=== PATIENT | female | born 1945 | race Caucasian/White ===

== ENCOUNTER 2017-06-20 07:51 | Day surgery (SDC) | payer BC, OTHER ==
[2017-06-20] MEDS ORDERED: NS 1000 ML 1,000 ML ONE (07:58)
[2017-06-20] MEDS ORDERED: DIPRIVAN VIAL 20 ML ONE (09:51)
[2017-06-20] MEDS ORDERED: DIPRIVAN VIAL 10 ML ONE (10:04)
[2017-06-20 10:55] VITALS: BP 120/60
== END 2017-06-20 10:32 | disposition home or self-care (01) ==
LOC: SURG1 07:51
PROVIDERS: ATTEND Internal Medicine Gastroenterology
PROC: 0DB88ZX Excision of Small Intestine, Via Natural or Artificial Opening Endoscopic, Diagnostic (ICD-10-PCS; principal; 2017-06-20 10:15)
PROC: 0DJ08ZZ Inspection of Upper Intestinal Tract, Via Natural or Artificial Opening Endoscopic (ICD-10-PCS; principal; 2017-06-20 10:15)
PROC: 0DB68ZX Excision of Stomach, Via Natural or Artificial Opening Endoscopic, Diagnostic (ICD-10-PCS; principal; 2017-06-20 10:15)
DX: D50.8 Other iron deficiency anemias (principal); R10.13 Epigastric pain; K31.7 Polyp of stomach and duodenum; K25.9 Gastric ulcer, unspecified as acute or chronic, without hemorrhage or perforation; K20.8 Other esophagitis
CPT/HCPCS: 99100; A4217; J3490

== ENCOUNTER 2017-07-04 07:19 | Day surgery (SDC) | payer BC, OTHER ==
[2017-07-04] MEDS ORDERED: D5 LR 1000 ML 1,000 ML IV ONE (07:24)
[2017-07-04] MEDS ORDERED: DIPRIVAN VIAL 20 ML ONE (08:33)
[2017-07-04] MEDS ORDERED: XYLOCAINE 2 % (PLAIN) ONE (08:34)
[2017-07-04] MEDS ORDERED: DIPRIVAN VIAL 10 ML ONE (08:46)
[2017-07-04 10:24] VITALS: BP 119/58
== END 2017-07-04 09:10 | disposition home or self-care (01) ==
LOC: SURG1 07:19
PROVIDERS: ATTEND Internal Medicine Gastroenterology
PROC: 0DJD8ZZ Inspection of Lower Intestinal Tract, Via Natural or Artificial Opening Endoscopic (ICD-10-PCS; principal; 2017-07-04 07:30)
PROC: 0DBM8ZX Excision of Descending Colon, Via Natural or Artificial Opening Endoscopic, Diagnostic (ICD-10-PCS; principal; 2017-07-04 07:30)
PROC: 0DBP8ZX Excision of Rectum, Via Natural or Artificial Opening Endoscopic, Diagnostic (ICD-10-PCS; principal; 2017-07-04 07:30)
DX: D50.8 Other iron deficiency anemias (principal); K63.5 Polyp of colon; K64.0 First degree hemorrhoids; Z85.3 Personal history of malignant neoplasm of breast; Z86.010 Personal history of colon polyps
CPT/HCPCS: 99100; A4217; J2001; J3490; J7120

== ENCOUNTER → 2017-08-23 | Outpatient (CLI) | payer BC, OTHER ==
[2017-08-13 08:23] VITALS: BP 106/61
== END | disposition home or self-care (01) | DRG 918 ==
LOC: LAB 12:39
PROVIDERS: ATTEND Internal Medicine
DX: T45.511A Poisoning by anticoagulants, accidental (unintentional), initial encounter (principal); Y92.89 Other specified places as the place of occurrence of the external cause; Z79.01 Long term (current) use of anticoagulants
CPT/HCPCS: 36415; 85610

== ENCOUNTER 2019-01-12 11:44 | Inpatient (IN) ==
[2019-01-12 14:21] LABS: BASOPHILS % (AUTO) 0.3 % (0.2-1.0); EOSINOPHILS # (AUTO) 0.2 x10^3/uL (0.0-0.2); EOSINOPHILS % (AUTO) 4.6 % (0.9-2.9); HEMOGLOBIN 11.2 g/dL (12.0-16.0); LYMPHOCYTES # (AUTO) 0.9 X10^3/uL (1.3-2.9); LYMPHOCYTES % (AUTO) 20.9 % (21.0-51.0); MEAN CORPUSCULAR HEMOGLOBIN 28.3 pg (27.0-34.0); MEAN CORPUSCULAR VOLUME 85.7 fL (80.0-100.0); MEAN PLATELET VOLUME 7.7 fL (7.4-11.0); MONOCYTES # (AUTO) 0.4 x10^3/uL (0.3-0.8); MONOCYTES % (AUTO) 8.4 % (0.0-13.0); NEUTROPHILS # (AUTO) 2.9 x10^3/uL (2.2-4.8); NEUTROPHILS % (AUTO) 65.8 % (42.0-75.0); PLATELET COUNT 183 X10^3/uL (150.0-450.0); RED BLOOD COUNT 3.96 X10^6/uL (3.5-5.4); RED CELL DISTRIBUTION WIDTH 15.3 % (11.6-16.5); WHITE BLOOD COUNT 4.4 X10^3/uL (3.6-10.0)
[2019-01-12 14:31] LABS: ALANINE AMINOTRANSFERASE 26 Units/L (12-78); ALKALINE PHOSPHATASE 86 Units/L (46-116); ASPARTATE AMINO TRANSFERASE 18 Units/L (15-37); BLOOD UREA NITROGEN 22 mg/dL (7-18); CALCIUM 9.7 mg/dL (8.5-10.1); CHLORIDE 101 mmol/L (98-107); COR NA(FOR HYPERGLY) 141 mmol/L (136-145); CREATININE 1.72 mg/dL (0.55-1.02); SODIUM 140 mmol/L (136-145); TOTAL PROTEIN 7.9 g/dL (6.4-8.2); eGFR NON BLACK RACES 31 (>60)
[2019-01-12] MEDS: LASIX IVP SCH ×2 (14:55→21:02)
--- NOTE | 2019-01-12 15:26 | RAD ---
History: Exacerbation of CHF Study: Portable AP chest Comparison: August 11, 2017 Findings: There is unchanged mild to moderate cardiomegaly status post sternotomy and prosthetic valve. The lungs are grossly clear. There are surgical clips in the left axilla. Impression: Chronic cardiomegaly, no acute disease. Reported By:
[2019-01-12 15:33] VITALS: BMI 26.6
[2019-01-13 05:20] LABS: ALANINE AMINOTRANSFERASE 25 Units/L (12-78); ALBUMIN 3.7 g/dL (3.4-5.0); ALKALINE PHOSPHATASE 82 Units/L (46-116); ASPARTATE AMINO TRANSFERASE 18 Units/L (15-37); BLOOD UREA NITROGEN 23 mg/dL (7-18); CALCIUM 9.4 mg/dL (8.5-10.1); CARBON DIOXIDE 29.9 mmol/L (21-32); CHLORIDE 100 mmol/L (98-107); COR NA(FOR HYPERGLY) 141 mmol/L (136-145); CREATININE 1.82 mg/dL (0.55-1.02); SODIUM 140 mmol/L (136-145); TOTAL PROTEIN 7.4 g/dL (6.4-8.2); eGFR NON BLACK RACES 29 (>60)
[2019-01-13 05:22] LABS: BASOPHILS % (AUTO) 0.2 % (0.2-1.0); EOSINOPHILS # (AUTO) 0.2 x10^3/uL (0.0-0.2); EOSINOPHILS % (AUTO) 4.8 % (0.9-2.9); HEMOGLOBIN 11.7 g/dL (12.0-16.0); LYMPHOCYTES % (AUTO) 21.9 % (21.0-51.0); MEAN CORPUSCULAR HEMOGLOBIN 29.5 pg (27.0-34.0); MEAN CORPUSCULAR HGB CONC 34.5 g/dL (33.0-35.0); MEAN CORPUSCULAR VOLUME 85.6 fL (80.0-100.0); MEAN PLATELET VOLUME 8.2 fL (7.4-11.0); MONOCYTES # (AUTO) 0.5 x10^3/uL (0.3-0.8); MONOCYTES % (AUTO) 10.3 % (0.0-13.0); NEUTROPHILS # (AUTO) 2.9 x10^3/uL (2.2-4.8); NEUTROPHILS % (AUTO) 62.8 % (42.0-75.0); PLATELET COUNT 178 X10^3/uL (150.0-450.0); RED BLOOD COUNT 3.97 X10^6/uL (3.5-5.4); RED CELL DISTRIBUTION WIDTH 15.2 % (11.6-16.5); WHITE BLOOD COUNT 4.7 X10^3/uL (3.6-10.0)
--- NOTE | 2019-01-13 06:55 | RAD ---
HISTORY: CHF exacerbation Study: Chest AP portable Comparison: 01/12/2019 Findings: The patient is status post median sternotomy and valve replacement. The heart is mildly enlarged. No congestive heart failure is noted. No acute alveolar infiltrates or pleural effusions are identified. The bony thorax is unremarkable. IMPRESSION: Continued mild cardiomegaly without congestive heart failure No infiltrates Reported By:
[2019-01-13] MEDS ORDERED: ENTRESTO 24/26 MG TAB PO SCH (09:00)
[2019-01-13] MEDS ORDERED: COZAAR PO SCH ×2 (09:00→21:00)
[2019-01-13] MEDS: ASPIRIN EC 81 MG PO SCH (09:41)
[2019-01-13] MEDS: HEMOCYTE-PLUS PO SCH (09:41)
[2019-01-13] MEDS: RANEXA PO SCH ×2 (09:42→20:34)
[2019-01-13] MEDS: PriLOSEC PO SCH (09:42)
[2019-01-13] MEDS: SYNTHROID 100 mcg TAB PO SCH (09:42)
[2019-01-13] MEDS: LANOXIN PO SCH (11:44)
--- NOTE | 2019-01-13 16:37 | DR.UPDATE ---
H&P Update History and Physical Update: History and Physical reviewed and patient examined. Changes noted: Yes with the following: RETURNED TO THE OFFICE TODAY FOR A FOLLOW-UP VISIT DUE TO INCREASED SHORTNESS OF BREATH. HE HAS A HISTORY OF CONGESTIVE HEART FAILURE. HER DOSE OF LASIX WAS RECENTLY INCREASED TO 40MG PO DAILY. PATIENT REPORTS THAT SYMPTOMS HAVE NOT IMPROVED AND HAVE WORSENED SINCE HER LAST VISIT ON 01/07/19 SHE ALSO REPORTS FATIGUE AND WEAKNESS, BUT DENIES COUGH OR CHEST PAIN. WE ADMITTED PATIENT FOR FURTHER EVALUATION AND TREATMENT OF CHF EXACERBATION. ON ADMISSION, WE WILL OBTAIN LABS, CHEST XRAY, ECHO, AND WILL START HER ON LASIX 40MG IV BID X 2 DOSES, THEN REEVALUATE. NO OTHER CHANGES NOTED TO H&P. Prescription drug monitoring program results: PDMP reviewed and no concerns identified
[2019-01-13] MEDS ORDERED: SNACK - Diabetic Appropriate PO SCH (20:00)
[2019-01-13] MEDS: ENTRESTO 24/26 MG TAB PO SCH (20:29)
[2019-01-13] MEDS ORDERED: LIPITOR TAB 40 MG PO SCH (21:00)
[2019-01-13] MEDS ORDERED: LANTUS SC SCH (21:00)
[2019-01-14 05:31] LABS: BASOPHILS % (AUTO) 0.1 % (0.2-1.0); EOSINOPHILS # (AUTO) 0.2 x10^3/uL (0.0-0.2); EOSINOPHILS % (AUTO) 4.5 % (0.9-2.9); HEMATOCRIT 34.7 % (36.0-47.0); HEMOGLOBIN 11.6 g/dL (12.0-16.0); LYMPHOCYTES % (AUTO) 22.3 % (21.0-51.0); MEAN CORPUSCULAR HEMOGLOBIN 28.8 pg (27.0-34.0); MEAN CORPUSCULAR HGB CONC 33.5 g/dL (33.0-35.0); MEAN CORPUSCULAR VOLUME 85.8 fL (80.0-100.0); MEAN PLATELET VOLUME 8.4 fL (7.4-11.0); MONOCYTES # (AUTO) 0.5 x10^3/uL (0.3-0.8); MONOCYTES % (AUTO) 10.3 % (0.0-13.0); NEUTROPHILS # (AUTO) 2.9 x10^3/uL (2.2-4.8); NEUTROPHILS % (AUTO) 62.8 % (42.0-75.0); PLATELET COUNT 159 X10^3/uL (150.0-450.0); RED BLOOD COUNT 4.04 X10^6/uL (3.5-5.4); WHITE BLOOD COUNT 4.6 X10^3/uL (3.6-10.0)
[2019-01-14 05:43] LABS: ALANINE AMINOTRANSFERASE 25 Units/L (12-78); ALBUMIN 3.4 g/dL (3.4-5.0); ALKALINE PHOSPHATASE 77 Units/L (46-116); ASPARTATE AMINO TRANSFERASE 20 Units/L (15-37); BLOOD UREA NITROGEN 27 mg/dL (7-18); CALCIUM 9.4 mg/dL (8.5-10.1); CARBON DIOXIDE 29.2 mmol/L (21-32); CHLORIDE 101 mmol/L (98-107); COR NA(FOR HYPERGLY) 140 mmol/L (136-145); CREATININE 1.66 mg/dL (0.55-1.02); DIGOXIN < 0.30 ng/mL (0.9-2); SODIUM 139 mmol/L (136-145); TOTAL PROTEIN 7.2 g/dL (6.4-8.2); eGFR NON BLACK RACES 32 (>60)
[2019-01-14] MEDS: SYNTHROID 100 mcg TAB PO SCH (06:01)
[2019-01-14] MEDS: LANOXIN PO SCH (08:22)
[2019-01-14] MEDS: ENTRESTO 24/26 MG TAB PO SCH (08:22)
[2019-01-14] MEDS: ASPIRIN EC 81 MG PO SCH (08:22)
[2019-01-14] MEDS: HEMOCYTE-PLUS PO SCH (08:22)
[2019-01-14] MEDS: PriLOSEC PO SCH (08:23)
[2019-01-14] MEDS: RANEXA PO SCH (08:23)
--- NOTE | 2019-01-14 09:04 | PCM.PROG ---
Progress Note - Progress Note for Day of Date of Exam: 01/13/19 - Subjective Subjective: WAS ADMITTED FOR CHF EXACERBATION. TODAY, SHE IS ALERT AND ORIENTED, LYING IN BED ON MORNING ROUNDS. SHE CONTINUES WITH COMPLAINTS OF SHORTNESS OF BREATH, BUT REPORTS SLIGHT IMPROVEMENT SINCE ADMISSION. ON EXAMINATION, HEART IS REGULAR IN RATE AND RHYTHM. BILATERAL LUNGS ARE NOTED WITH DIMINISHED LUNG SOUNDS THROUGHOUT. ABDOMEN IS ROUND, SOFT, AND NON-TENDER. BILATERAL LOWER EXTREMITIES ARE NOTED WITH TRACE EDEMA. HER VITALS THIS MORNING ARE 99.3-69-20-97%-110/56. LABS WERE OBTAINED. ABNORMAL LAB VALUES INCLUDE THE FOLLOWING: HGB 11.7, HCT 34.0, INR 2.33, BUN 22, CREATININE 1.72, GLUCOSE 124, BNP 446. TODAYS CHEST XRAY REVEALED: Continued mild cardiomegaly without congestive heart failure. No infiltrates. AN ECHO WAS OBTAINED AND REVEALED AN EJECTION FRACTION OF 45-50%, RVSP 30mmHg. SEE EMR FOR FURTHER RESULTS. SHE RECEIVED LASIX 40MG IV X 1 DOSE ON ADMISSION. SHE IS CURRENTLY ON ENTRESTO AND LOSARTAN AT HOME. WE WILL DISCONTINUE THE LOSARTAN AND INCREASE THE ENTRESTO TO TWO TABLETS TWICE A DAY. WE WILL ALSO ADMINISTER DIGOXIN 0.125MG PO DAILY. OTHERWISE, WE PLAN TO FOLLOW UP WITH AM LABS AND CHEST XRAY AND CONTINUE TO MONITOR. - Past Medical Family Social History Past Med/Fam/Surg Hx: No changes since H&P Allergies: Allergies No Known Allergies Allergy (Verified 08/11/17 16:26) - Review of Systems ROS: No change since H&P - Vital Signs and I&O's Vital Signs: Temperature 98.1 F Pulse Rate [Right Brachial] 64 Pulse Rate 68 Respiratory Rate 18 Blood Pressure [Right Arm] 105/51 Blood Pressure 106/61 O2 Sat by Pulse Oximetry 99 Intake and Output: Intake & Output 01/11/19 01/12/19 01/13/19 01/14/19 11:59 11:59 11:59 11:59 Intake Total 430 / 430 1580 / 1580 Balance 430 / 430 1580 / 1580 - Physical Exam Oriented: Normal Eyes: Normal Ear: Normal Nose: Normal Throat: Normal Respiratory: Generalized, Diminished Cardiovascular: Normal. negative: S3, S4, Murmur : Normal Auscultation: Bowel Sounds: Normal Palpation: Normal Tenderness: Normal Skin: Normal Musculoskeletal: Normal Psychiatric: Normal Mood Description: Calm Affect: Normal Speech Pattern: Clear, Appropriate - Laboratory and Diagnostics Result Diagrams: 01/14/19 04:54 01/14/19 04:54 Labs: Laboratory WBC 4.6 X10^3/uL (3.6-10.0) 01/14/19 04:54 RBC 4.04 X10^6/uL (3.5-5.4) 01/14/19 04:54 Hgb 11.6 g/dL (12.0-16.0) L 01/14/19 04:54 Hct 34.7 % (36.0-47.0) L 01/14/19 04:54 MCV 85.8 fL (80.0-100.0) 01/14/19 04:54 MCH 28.8 pg (27.0-34.0) 01/14/19 04:54 MCHC 33.5 g/dL (33.0-35.0) 01/14/19 04:54 RDW 15.0 % (11.6-16.5) 01/14/19 04:54 Plt Count 159 X10^3/uL (150.0-450.0) 01/14/19 04:54 MPV 8.4 fL (7.4-11.0) 01/14/19 04:54 Neut % (Auto) 62.8 % (42.0-75.0) 01/14/19 04:54 Lymph % (Auto) 22.3 % (21.0-51.0) 01/14/19 04:54 [place] % (Auto) 10.3 % (0.0-13.0) 01/14/19 04:54 Eos % (Auto) 4.5 % (0.9-2.9) H 01/14/19 04:54 Baso % (Auto) 0.1 % (0.2-1.0) L 01/14/19 04:54 Neut # (Auto) 2.9 x10^3/uL (2.2-4.8) 01/14/19 04:54 Lymph # (Auto) 1.0 X10^3/uL (1.3-2.9) L 01/14/19 04:54 [place] # (Auto) 0.5 x10^3/uL (0.3-0.8) 01/14/19 04:54 Eos # (Auto) 0.2 x10^3/uL (0.0-0.2) 01/14/19 04:54 Baso # (Auto) 0.0 X10^3/uL (0.0-0.1) 01/14/19 04:54 Absolute Nucleated RBC 0.1 /100WBC 01/14/19 04:54 INR Target Range - 01/14/19 04:54 INR 1.82 (0.8-1.3) H 01/14/19 04:54 Sodium 139 mmol/L (136-145) 01/14/19 04:54 Corrected Sodium 140 mmol/L (136-145) 01/14/19 04:54 Potassium 3.7 mmol/L (3.5-5.1) 01/14/19 04:54 Chloride 101 mmol/L (98-107) 01/14/19 04:54 Carbon Dioxide 29.2 mmol/L (21-32) 01/14/19 04:54 BUN 27 mg/dL (7-18) H 01/14/19 04:54 Creatinine 1.66 mg/dL (0.55-1.02) H 01/14/19 04:54 Est GFR (MDRD) Af Amer 39 (>60) L 01/14/19 04:54 Est GFR (MDRD) Non-Af 32 (>60) L 01/14/19 04:54 Glucose 151 mg/dL (65-99) H 01/14/19 04:54 POC Glucose (mg/dL) 147 mg/dL (65-99) H 01/14/19 05:32 Calcium 9.4 mg/dL (8.5-10.1) 01/14/19 04:54 Corrected Calcium TNP 01/14/19 04:54 Total Bilirubin 0.60 mg/dL (0.2-1.0) 01/14/19 04:54 AST 20 Units/L (15-37) 01/14/19 04:54 ALT 25 Units/L (12-78) 01/14/19 04:54 Alkaline Phosphatase 77 Units/L (46-116) 01/14/19 04:54 B-Natriuretic Peptide 135 pg/mL (0-79) H 01/13/19 04:58 Total Protein 7.2 g/dL (6.4-8.2) 01/14/19 04:54 Albumin 3.4 g/dL (3.4-5.0) 01/14/19 04:54 Globulin 3.8 g/dL (2.5-4.5) 01/14/19 04:54 Albumin/Globulin Ratio 0.9 Ratio (1.1-2.1) L 01/14/19 04:54 Digoxin < 0.30 ng/mL (0.9-2) L 01/14/19 04:54 - Plan (1) Congestive heart failure Status: Acute Qualifiers: Heart failure chronicity: acute on chronic Plan: ENTRESTO 2 TABLETS BID, DIGOXIN 0.125MG PO DAILY, CONTINUE TO MONITOR. 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 transplanted heart: [place] heart Associated angina: angina presence unspecified Qualified Code(s): I25.10 - Atherosclerotic heart disease of [place] coronary artery without angina pectoris Plan: CONTINUE HOME MEDS
--- NOTE | 2019-01-14 09:41 | RAD ---
History: Congestive heart failure Study: Portable AP chest Comparison: Yesterday Findings: The heart size is prominent with prosthetic valves status post sternotomy. There are surgical sebastien in the left axilla status post left mastectomy. There is mild interstitial lung disease. There is no focal lung consolidation. There is no vascular congestion or pleural effusion demonstrated. Impression: Mild cardiomegaly, no evidence for acute or active cardiopulmonary disease Reported By:
[2019-01-14 10:28] VITALS: BP 91/55
[2019-01-14] MEDS ORDERED: COUMADIN TAB 5 MG PO SCH (21:00)
== END 2019-01-14 11:00 | disposition home or self-care (01) | DRG 293 ==
LOC: MED/SURG 13:08
PROVIDERS: ADMIT Internal Medicine; ATTEND Internal Medicine
DX: Z79.01 Long term (current) use of anticoagulants; E11.65 Type 2 diabetes mellitus with hyperglycemia; R94.31 Abnormal electrocardiogram [ECG] [EKG]; I50.9 Heart failure, unspecified; E03.8 Other specified hypothyroidism; I25.10 Atherosclerotic heart disease of native coronary artery without angina pectoris
CPT/HCPCS: 36415; 71010; 71045; 80053; 80162; 83880; 85025; 85610; 93005; 93306; 94760; A4216; A4222; J1815; J1940

== ENCOUNTER 2019-02-03 10:13 | Observation (INO) ==
[2019-02-03] MEDS ORDERED: NS 1000 ML 1,000 ML IV SCH (11:00)
[2019-02-03] MEDS ORDERED: NS 1000 ML 1,000 ML ONE (11:08)
[2019-02-03 11:39] LABS: BASOPHILS % (AUTO) 0.2 % (0.2-1.0); EOSINOPHILS # (AUTO) 0.2 x10^3/uL (0.0-0.2); EOSINOPHILS % (AUTO) 4.7 % (0.9-2.9); HEMATOCRIT 35.1 % (36.0-47.0); HEMOGLOBIN 11.7 g/dL (12.0-16.0); LYMPHOCYTES # (AUTO) 0.9 X10^3/uL (1.3-2.9); LYMPHOCYTES % (AUTO) 20.2 % (21.0-51.0); MEAN CORPUSCULAR HEMOGLOBIN 28.7 pg (27.0-34.0); MEAN CORPUSCULAR HGB CONC 33.4 g/dL (33.0-35.0); MEAN PLATELET VOLUME 8.4 fL (7.4-11.0); MONOCYTES # (AUTO) 0.5 x10^3/uL (0.3-0.8); MONOCYTES % (AUTO) 10.2 % (0.0-13.0); NEUTROPHILS # (AUTO) 2.9 x10^3/uL (2.2-4.8); NEUTROPHILS % (AUTO) 64.7 % (42.0-75.0); PLATELET COUNT 154 X10^3/uL (150.0-450.0); RED BLOOD COUNT 4.08 X10^6/uL (3.5-5.4); RED CELL DISTRIBUTION WIDTH 15.3 % (11.6-16.5); WHITE BLOOD COUNT 4.4 X10^3/uL (3.6-10.0)
--- NOTE | 2019-02-03 11:53 | RAD ---
HISTORY: Shortness of breath and chest pain. Prior history of CHF, left breast cancer and open-heart surgery. Study: Two-view chest Comparison: 01/14/2019. Findings: There is again evidence of lower cervical spine surgery with metallic plate and screws present. There is evidence of median sternotomy with metallic sutures, metallic plates and screws present. A metallic ring is present indicating mitral valve replacement surgery. Trachea is midline. Heart size is upper normal. There is mild hyperinflation of the lungs with stable increased interstitial markings bilaterally. No consolidation, CHF, pleural fluid or pneumothorax is seen. There is multilevel thoracic spondylosis. IMPRESSION: Postsurgical changes. Upper normal heart size. No evidence of CHF is seen. Hyperinflation of the lungs with stable increased interstitial markings bilaterally . In the appropriate clinical setting findings may indicate COPD. An acute process is not identified. Reported By:
[2019-02-03 11:58] LABS: ALANINE AMINOTRANSFERASE 29 Units/L (12-78); ALKALINE PHOSPHATASE 80 Units/L (46-116); ASPARTATE AMINO TRANSFERASE 20 Units/L (15-37); BLOOD UREA NITROGEN 38 mg/dL (7-18); CALCIUM 9.5 mg/dL (8.5-10.1); CHLORIDE 100 mmol/L (98-107); CKMB % 1.8 % (<4); COR NA(FOR HYPERGLY) 140 mmol/L (136-145); CREATINE KINASE 104 Units/L (26-192); CREATINE KINASE MB 1.9 ng/mL (0-4.0); SODIUM 139 mmol/L (136-145); TOTAL PROTEIN 7.6 g/dL (6.4-8.2); TROPONIN I < 0.02 ng/mL (0-1.5); eGFR NON BLACK RACES 20 (>60)
[2019-02-03 14:36] VITALS: BMI 26.6
[2019-02-03 15:02] LABS: CKMB % 1.5 % (<4); CREATINE KINASE 89 Units/L (26-192); CREATINE KINASE MB 1.3 ng/mL (0-4.0); TROPONIN I < 0.02 ng/mL (0-1.5)
[2019-02-03 19:05] LABS: CKMB % 1.6 % (<4); CREATINE KINASE 89 Units/L (26-192); CREATINE KINASE MB 1.4 ng/mL (0-4.0); TROPONIN I < 0.02 ng/mL (0-1.5)
[2019-02-03] MEDS ORDERED: LIPITOR TAB 40 MG PO SCH (21:00)
[2019-02-03] MEDS: RANEXA PO SCH (21:18)
[2019-02-04 05:26] LABS: BASOPHILS % (AUTO) 0.2 % (0.2-1.0); EOSINOPHILS # (AUTO) 0.2 x10^3/uL (0.0-0.2); EOSINOPHILS % (AUTO) 5.3 % (0.9-2.9); HEMATOCRIT 35.2 % (36.0-47.0); HEMOGLOBIN 11.5 g/dL (12.0-16.0); LYMPHOCYTES % (AUTO) 23.4 % (21.0-51.0); MEAN CORPUSCULAR HEMOGLOBIN 28.6 pg (27.0-34.0); MEAN CORPUSCULAR HGB CONC 32.8 g/dL (33.0-35.0); MEAN CORPUSCULAR VOLUME 87.3 fL (80.0-100.0); MEAN PLATELET VOLUME 8.8 fL (7.4-11.0); MONOCYTES # (AUTO) 0.5 x10^3/uL (0.3-0.8); NEUTROPHILS # (AUTO) 2.5 x10^3/uL (2.2-4.8); NEUTROPHILS % (AUTO) 60.1 % (42.0-75.0); PLATELET COUNT 135 X10^3/uL (150.0-450.0); RED BLOOD COUNT 4.03 X10^6/uL (3.5-5.4); WHITE BLOOD COUNT 4.1 X10^3/uL (3.6-10.0)
[2019-02-04 05:42] LABS: ALANINE AMINOTRANSFERASE 27 Units/L (12-78); ALBUMIN 3.5 g/dL (3.4-5.0); ALKALINE PHOSPHATASE 72 Units/L (46-116); ASPARTATE AMINO TRANSFERASE 16 Units/L (15-37); BLOOD UREA NITROGEN 36 mg/dL (7-18); CALCIUM 9.2 mg/dL (8.5-10.1); CARBON DIOXIDE 27.8 mmol/L (21-32); CHLORIDE 103 mmol/L (98-107); COR NA(FOR HYPERGLY) 141 mmol/L (136-145); SODIUM 140 mmol/L (136-145); TOTAL PROTEIN 7.2 g/dL (6.4-8.2); eGFR NON BLACK RACES 26 (>60)
[2019-02-04] MEDS ORDERED: SYNTHROID 100 mcg TAB PO SCH (07:30)
[2019-02-04] MEDS: RANEXA PO SCH (08:39)
[2019-02-04] MEDS ORDERED: LANOXIN PO SCH (09:00)
[2019-02-04] MEDS ORDERED: ASPIRIN EC 81 MG PO SCH (09:00)
[2019-02-04 12:33] VITALS: BP 104/51
--- NOTE | 2019-02-15 20:56 | DR.CARTERS ---
Short Stay Summary - Admission Date Date of Admission: 02/03/19 - Discharge Date Discharge Date: 02/04/19 - Admission Diagnoses (1) Chest pain, rule out acute myocardial infarction Status: Acute - Hospital Course Hospital Course: IS A 49 YEAR OLD PATIENT OF OURS. SHE PRESENTED TO THE HOSPITAL A DIRECT ADMISSION WITH COMPLAINTS OF CHEST PAIN AND SHORTNESS OF BREATH. SHE DESCRIBED THE PAIN SEVERE, AND STABBING AT TIMES. IT HAS BEEN ONGOING FOR THE PAST TWO MONTHS. SHE DOES HAVE A HISTORY OF CAD AND CHF. ON ARRIVAL, VITALS WERE 97.8-62-20-99%-117/55. LABS WERE OBTAINED. ABNORMAL LAB VALUES INCLUDED THE FOLLOWING: HGB 11.7, HCT 35.1, INR 2.30, BUN 38, CREATININE 2.50, GLUCOSE 140, BNP 163, CARDIAC ENZYMES WITHIN NORMAL LIMITS. CARDIAC ENZYMES WITHIN NORMAL LIMITS. A URINALYSIS WAS OBTAINED AND WAS UNREMARKABLE. EKG WAS OBTAINED AND REVEALED: SINUS RHYTHM WITH HR 61. CHEST XRAY REVEALED: Upper normal heart size. No evidence of CHF is seen. Hyperinflation of the lungs with stable increased interstitial markings bilaterally. In the appropriate clinical setting findings may indicate COPD. An acute process is not identified. SHE WAS ADMITTED TO THE HOSPITAL FOR FURTHER EVALUATION OF CHEST PAIN RULE OUT ACUTE PR. WE PLANNED TO OBTAIN SERIAL CARDIAC ENZYMES AND EKGS. OTHERWISE, WE PLANNED TO FOLLOW UP WITH AM LABS AND CONTINUE TO MONITOR. ON THE MORNING FOLLOWING ADMISSION, PATIENT IS ALERT AND ORIENTED, LYING IN BED ON MORNING ROUNDS. SHE DENIES CHEST PAIN OR SHORTNESS OF BREATH TODAY. ON EXAMINATION, HEART IS REGULAR IN RATE AND RHYTHM. BILATERAL LUNGS ARE NOTED WITH DIMINISHED LUNG SOUNDS THROUGHOUT. ABDOMEN ROUND, SOFT, AND NON-TENDER. NORMAL BOWEL SOUNDS NOTED IN ALL QUADRANTS. HER VITALS THIS MORNING ARE: 98.5-64-18-100%-128/61. LABS WERE OBTAINED. ABNORMAL LAB VALUES INCLUDE THE FOLLOWING: HGB 11.5, HCT 35.2, PLT COUNT 135, INR 2.30, BUN 36, CREATININE 2.00, GLUCOSE 136. CARDIAC ENZYMES HAVE BEEN WITHIN NORMAL LIMITS. NO CHANGES NOTED TO EKGS. WE PLANNED FOR DISCHARGE. INSTRUCTIONS FOR MEDICATIONS AND FOLLOW-UP WERE DISCUSSED WITH PATIENT AND FAMILY. SHE WAS DISCHARGED HOME WITH FAMILY IN STABLE CONDITION WITH INSTRUCTIONS TO CONTINUE HER HOME MEDS. WE WILL OBTAIN FURTHER CARDIAC WORK-UP IN THE OFFICE. - Discharge Medications Discharge Medications: Home Medication List levothyroxine 100 mcg PO DAILY 02/03/19 [History] metolazone 5 mg PO .1-2XWEEK PRN 02/03/19 [History] warfarin [Coumadin] 7.5 mg PO HS 02/03/19 [History] Prescriptions: Prescription drug monitoring program results: PDMP reviewed and no concerns identified - Discharge Plan Disposition: HOME, SELF-CARE Condition: Stable - Follow up/Referrals Follow up/Referrals: BHAVIN NEGRON [Nurse Practitioner] - 02/11/19 10:10 am - Instructions Instructions: Bleeding Precautions When on Anticoagulant Therapy, Pediatric, Heart Failure, [id number], Type 2 Diabetes Mellitus, Diagnosis, Adult, [id number] Additional Instructions: LOW SODIUM DIET. ACTIVITY TOLERATED. HOLD LASIX UNTIL SATURDAY. Forms: Excuse From Work or School
== END 2019-02-04 14:00 | disposition home or self-care (01) ==
LOC: MED/SURG
PROVIDERS: ADMIT Internal Medicine; ATTEND Internal Medicine
DX: R79.1 Abnormal coagulation profile; E11.65 Type 2 diabetes mellitus with hyperglycemia; Z79.899 Other long term (current) drug therapy; R94.4 Abnormal results of kidney function studies; R07.89 Other chest pain; R06.02 Shortness of breath; I25.10 Atherosclerotic heart disease of native coronary artery without angina pectoris
CPT/HCPCS: 36415; 71020; 71046; 74000; 74018; 80053; 80162; 82550; 82553; 83880; 84484; 85025; 85610; 93005; 94760; A4222; G0378; J7030

== ENCOUNTER 2022-10-01 18:28 | Inpatient (IN) ==
[2022-10-01 19:04] VITALS: BMI 26.2
[2022-10-01] MEDS ORDERED: TYLENOL 500 MG TAB EXTRA STRENGTH PO ONE ×2 (19:07→19:10)
--- NOTE | 2022-10-01 19:15 | DR.FEVERAD ---
HPI Time seen Time Seen by Provider: 10/01/22 19:15 PCP Primary Care Physician: Alanis HPI Comment HPI Comment: PATIENT IS 77 YR OLD FEMALE IN ER WITH FEVER, CHILLS, GENERALIZED WEAKNESS AND MAY HAVE FALLING DOWN. HAVE WRIST AND ANKLE PAIN ON THE LEFT SIDE. FAMILY MEMBERS SAY LEFT FACE WAS DROOPING TODAY. SHE IS SAID TO BE CONFUSE. Complaints/Symptoms Chief Complaint Doctor Comments: FEVER, CHILLS TIMES 2 DAYS AND LT ANKLE AND WRIST PAIN FROM POSSIBLE FALL. PATIENT IS WEAK AND COULD HARDLY GOT OUT OF HER CHAIR PAST 2 DAYS. Chief Complaint:: Patient stated that her left foot and hand is sore since 09-29-22. Patients granddaughter stated that the patient has not been able to get out of the chair the last two days. Patients granddaughter stated that she thinks the patient might have fell sometime around saturday the 09-29-22, Patient also stated she has been having chills since 09-30-22. Self Treatment fo Chief Complaint: N/A COVID-19 Coronavirus risk:travel/contact w/high risk person: No Has patient experienced Coronavirus symptoms: No Nurses notes reviewed Nurses Notes Review: Yes Source History Provided: Patient and Guardian Mode of Arrival Mode of Arrival: Wheelchair Timing Onset of Chief Complaint: 09/29/22 PMH PMH Past Medical History: Yes Past Medical History: Diabetes, Hyperthyroidism, [place] and Renal Disease Past Medical History Comment: left Breast Cancer, A-Fib Past Surgical History: Yes Surgical History: Angioplasty/Stents, Hysterectomy, Mastectomy and Other Past Surgical History Comment: Bi-Lat Knee replacement, Family History History of Family Medical Conditions: Yes Family Medical History: Diabetes Mellitus, Cancer and [place] Social History Does patient currently use any type of tobacco product: No Have you used tobacco products in the last 12 months: No Type of Tobacco Use: None Does any household member use tobacco: No Alcohol Use: None Do you use any recreational Drugs:: No Lives With: Alone Lives Where: Home Infectious screening In the last 2 months have you had wt loss of >10#?: NO Have you had fever, night sweats or hemotysis?: No Have you traveled outside the country in the last 6 months?: No Isolation: Standard ROS Review of Systems Constitutional: Chills, Fever, Weakness and Fatigue Eyes: No Symptoms Reported ENTM: No Symptoms Reported; negative Nose Discharge or Nose Congestion Respiratoy: No Symptoms Reported; negative Moist Cough, Short of Breath or Wheezing Cardiovascular: No Symptoms Reported; negative Chest Pain Gastrointestinal/Abdominal: No Symptoms Reported; negative Abdominal Pain, Diarrhea or Vomiting Genitourinary: No Symptoms Reported; negative Dysuria Neurological: Weakness; negative Headache or Dizziness Musculoskeletal: Wrist (LT.) and Ankle (LT.) Integumentary: No Symptoms Reported Hematologic/Lymphatic: No Symptoms Reported Endocrine: No Symptoms Reported; negative Increased Thirst or Increased Urine Psychiatric: No Symptoms Reported All Other Systems: Reviewed and Negative PE Vital Signs Vitals: Temperature 100.3 F Pulse Rate 60 Respiratory Rate 20 Blood Pressure [Right Arm] 104/51 Blood Pressure 103/53 O2 Sat by Pulse Oximetry 96 General Limitations: No Limitations General Appearance: Alert and In No Apparent Distress Head Head Exam: Normal Inspection and Atraumatic Eyes Eye exam: Normal Appearance, PERRL and EOMI; negative Scleral Icterus or Conjunctival Injection ENT ENT Exam: Normal Exam, Normal Oropharynx, Normal External Ear Exam and TM's Normal Bilaterally Neck Neck Exam: Normal Inspection and Trachea Midline; negative Tenderness Respiratory Respiratory Exam: Normal Lung Sounds Bilat; negative Accessory Muscle Use, Chest Wall Tenderness or Respiratory Distress Cardiovascular Cardiovascular Exam: Regular Rate, Normal Rhythm and Normal Heart Sounds; negative Systolic Murmur or Diastolic Murmur Abdominal Exam Abdominal Exam: Normal Inspection, Normal Bowel Sounds and Soft; negative Tenderness Extremities Extremities Exam: Normal Inspection and Normal Capillary Refill Back Back Exam: Normal Inspection; negative (R) CVA Tenderness or (L) CVA Tenderness Neurologic Neurological Exam: Alert and Oriented X3; negative Motor Sensory Deficit Psychiatric Psychiatric Exam: Normal Affect and Normal Mood Skin Skin Exam: Intact MDM Differential Diagnosis Differential Diagnosis: CVA, Dehydration, Electrolyte disorder, Hypoxemia, Pneumonia and UTI ROR Labs Reviewed Laboratory Results Reviewed?: Yes Result Diagrams: 10/03/22 04:20 10/03/22 04:20 Laboratory: 10/01/22 19:59 Blood Blood Culture - Preliminary 10/01/22 19:45 Blood Blood Culture - Preliminary WBC 6.9 X10^3/uL (3.6-10.0) 10/01/22 19:59 RBC 4.23 X10^6/uL (3.5-5.4) 10/01/22 19:59 Hgb 11.1 g/dL (12.0-16.0) L 10/01/22 19:59 Hct 33.6 % (36.0-47.0) L 10/01/22 19:59 MCV 79.4 fL (80.0-100.0) L 10/01/22 19:59 MCH 26.1 pg (27.0-34.0) L 10/01/22 19:59 MCHC 32.9 g/dL (33.0-35.0) L 10/01/22 19:59 RDW 17.1 % (11.6-16.5) H 10/01/22 19:59 Plt Count 93 X10^3/uL (150.0-450.0) L 10/01/22 19:59 MPV 8.7 fL (7.4-11.0) 10/01/22 19:59 Neut % (Auto) 85.5 % (42.0-75.0) H 10/01/22 19:59 Lymph % (Auto) 5.8 % (21.0-51.0) L 10/01/22 19:59 [place] % (Auto) 8.6 % (0.0-13.0) 10/01/22 19:59 Eos % (Auto) 0.0 % (0.9-2.9) L 10/01/22 19:59 Baso % (Auto) 0.1 % (0.2-1.0) L 10/01/22 19:59 Neut # (Auto) 5.9 x10^3/uL (2.2-4.8) H 10/01/22 19:59 Lymph # (Auto) 0.4 X10^3/uL (1.3-2.9) L 10/01/22 19:59 [place] # (Auto) 0.6 x10^3/uL (0.3-0.8) 10/01/22 19:59 Eos # (Auto) 0.0 x10^3/uL (0.0-0.2) 10/01/22 19:59 Baso # (Auto) 0.0 X10^3/uL (0.0-0.1) 10/01/22 19:59 Absolute Nucleated RBC 0.0 /100WBC 10/01/22 19:59 Sodium 131 mmol/L (136-145) L 10/01/22 19:59 Corrected Sodium 133 mmol/L (136-145) L 10/01/22 19:59 Potassium 3.4 mmol/L (3.5-5.1) L 10/01/22 19:59 Chloride 96 mmol/L (98-107) L 10/01/22 19:59 Carbon Dioxide 24.6 mmol/L (21-32) 10/01/22 19:59 BUN 24 mg/dL (7-18) H 10/01/22 19:59 Creatinine 1.87 mg/dL (0.55-1.02) H 10/01/22 19:59 Est GFR (MDRD) Af Amer 33 (>60) L 10/01/22 19:59 Est GFR (MDRD) Non-Af 28 (>60) L 10/01/22 19:59 Glucose 164 mg/dL (65-99) H 10/01/22 19:59 Lactic Acid 1.3 mmol/L (0.4-2.0) 10/01/22 19:59 Calcium 8.6 mg/dL (8.5-10.1) 10/01/22 19:59 Corrected Calcium 9.2 mg/dL (8.5-10.1) 10/01/22 19:59 Total Bilirubin 1.00 mg/dL (0.2-1.0) 10/01/22 19:59 AST 34 Units/L (15-37) 10/01/22 19:59 ALT 37 Units/L (12-78) 10/01/22 19:59 Alkaline Phosphatase 78 Units/L (46-116) 10/01/22 19:59 Creatine Kinase 162 Units/L (26-192) 10/01/22 23:15 Troponin I High Sens 62.1 ng/L (4.0-60.0) H* 10/01/22 23:15 Total Protein 7.0 g/dL (6.4-8.2) 10/01/22 19:59 Albumin 3.3 g/dL (3.4-5.0) L 10/01/22 19:59 Globulin 3.7 g/dL (2.5-4.5) 10/01/22 19:59 Albumin/Globulin Ratio 0.9 Ratio (1.1-2.1) L 10/01/22 19:59 Specimen Type Clean catch urine 10/01/22 18:59 Urine Color Yellow (YELLOW) 10/01/22 18:59 Urine Appearance Hazy (CLEAR) 10/01/22 18:59 Urine pH 5.0 (5.0 - 8.0) 10/01/22 18:59 Ur Specific [place] 1.015 (1.000-1.030) 10/01/22 18:59 Urine Protein 2+ (NEGATIVE) 10/01/22 18:59 Urine Glucose (UA) 4+ (NEGATIVE) 10/01/22 18:59 Urine Ketones 2+ (NEGATIVE) 10/01/22 18:59 Urine Blood 4+ (NEGATIVE) 10/01/22 18:59 Urine Nitrite Positive (NEGATIVE) 10/01/22 18:59 Urine Bilirubin Negative (NEGATIVE) 10/01/22 18:59 Urine Urobilinogen Normal (NORMAL) 10/01/22 18:59 Ur Leukocyte Esterase 2+ (NEGATIVE) 10/01/22 18:59 Urine RBC Tntc /HPF (0-3) A 10/01/22 18:59 Urine WBC Tntc /HPF (0-5) A 10/01/22 18:59 Ur Squamous Epith Cells Few /HPF (NEGATIVE) 10/01/22 18:59 Urine Bacteria 3+ /HPF (NEGATIVE) 10/01/22 18:59 Ur Culture Indicated? Yes/culture set up 10/01/22 18:59 Urine Opiates Screen Negative (NEG=<300) 10/01/22 18:59 Urine Methadone Screen Negative (NEG=<300) 10/01/22 18:59 Ur Barbiturates Screen Negative (NEG=<200) 10/01/22 18:59 Ur Phencyclidine Scrn Negative (NEG=<25) 10/01/22 18:59 Ur Amphetamines Screen Negative (NEG=<1000) 10/01/22 18:59 U Benzodiazepines Scrn Negative (NEG=<200) 10/01/22 18:59 Urine Cocaine Screen Negative (NEG=<300) 10/01/22 18:59 U Marijuana (THC) Screen Negative (NEG=<50) 10/01/22 18:59 Acetone, Semi-Quant Negative (NEGATIVE) 10/01/22 21:30 SARS-CoV-2 (PCR) Negative (NEGATIVE) 10/01/22 19:17 Influenza Type A (PCR) Negative (NEGATIVE) 10/01/22 19:17 Influenza Type B (PCR) Negative (NEGATIVE) 10/01/22 19:17 RSV (PCR) Negative (NEGATIVE) 10/01/22 19:17 S. pyogenes (TEM-PCR) Not detected (NOT DETECT) 10/01/22 19:17 XRAY XRAY Interpreted by: Radiologist (REPORT NOTED.) EKG Rate: 81 [place]: Normal and LAD Rhythm: Junctional Block: None Hypertrophy: None ST: Nonsp Opioid Opioid Risk Tool Total: 0 Total Score Risk Category: Low Risk Copyright: [facility] predicting aberrant behaviors Discharge Plan Diagnosis Discharge Problem: Dehydration UTI (urinary tract infection) Qualifiers: Urinary tract infection type: site unspecified Hematuria presence: with hematuria Qualified Code(s): N39.0 - Urinary tract infection, site not specified Altered mental state Qualifiers: Altered mental status type: transient alteration of awareness Qualified Code(s): R40.4 - Transient alteration of awareness Discharge Plan Patient Disposition: 09 ADMITTED INPATIENT Condition: Stable
--- NOTE | 2022-10-01 19:28 | EKG ---
Test Reason : HTN Blood Pressure : */* mmHG Vent. Rate : 81 BPM Atrial Rate : * BPM P-R Int : * ms QRS Dur : 92 ms QT Int : 344 ms P-R-T Axes : * 71 151 degrees QTc Int : 399 ms Normal sinus rhythm Nonspecific ST and T wave abnormality Abnormal ECG No previous ECGs available Confirmed by Naif Campbell ([id number]) on 10/02/2022 3:35:38 PM Referred By: Confirmed By: Naif Campbell
[2022-10-01 19:36] LABS: BILIRUBIN,URINE NEGATIVE (NEGATIVE); BLOOD/HEMOGLOBIN,URINE 4+ (NEGATIVE); GLUCOSE, URINE 4+ (NEGATIVE); KETONES,URINE 2+ (NEGATIVE); LEUKOCYTE ESTERASE ,URINE 2+ (NEGATIVE); NITRITES,URINE POSITIVE (NEGATIVE); PROTEIN,URINE 2+ (NEGATIVE); UROBILINOGEN,URINE NORMAL (NORMAL)
[2022-10-01 19:45] LABS: APPEARANCE,URINE HAZY (CLEAR); COLOR,URINE YELLOW (YELLOW); RBC,URINE TNTC /HPF (0-3)
[2022-10-01 19:46] LABS: BACTERIA,URINE 3+ /HPF (NEGATIVE); SQUAMOUS EPITHELIAL CELL,UR FEW /HPF (NEGATIVE)
[2022-10-01 20:00] LABS: STREP A BY PCR NOT DETECTED (NOT DETECT)
[2022-10-01] MEDS ORDERED: NS 1,000 ML IV 1,000 ML IV SCH (20:00)
[2022-10-01 20:17] LABS: BASOPHILS % (AUTO) 0.1 % (0.2-1.0); HEMATOCRIT 33.6 % (36.0-47.0); HEMOGLOBIN 11.1 g/dL (12.0-16.0); LYMPHOCYTES # (AUTO) 0.4 X10^3/uL (1.3-2.9); LYMPHOCYTES % (AUTO) 5.8 % (21.0-51.0); MEAN CORPUSCULAR HEMOGLOBIN 26.1 pg (27.0-34.0); MEAN CORPUSCULAR HGB CONC 32.9 g/dL (33.0-35.0); MEAN CORPUSCULAR VOLUME 79.4 fL (80.0-100.0); MEAN PLATELET VOLUME 8.7 fL (7.4-11.0); MONOCYTES # (AUTO) 0.6 x10^3/uL (0.3-0.8); MONOCYTES % (AUTO) 8.6 % (0.0-13.0); NEUTROPHILS # (AUTO) 5.9 x10^3/uL (2.2-4.8); NEUTROPHILS % (AUTO) 85.5 % (42.0-75.0); RED BLOOD COUNT 4.23 X10^6/uL (3.5-5.4); RED CELL DISTRIBUTION WIDTH 17.1 % (11.6-16.5); WHITE BLOOD COUNT 6.9 X10^3/uL (3.6-10.0)
[2022-10-01 20:30] LABS: ALBUMIN 3.3 g/dL (3.4-5.0); CALCIUM 8.6 mg/dL (8.5-10.1); CARBON DIOXIDE 24.6 mmol/L (21-32); COR CA(FOR HYPOALB) 9.2 mg/dL (8.5-10.1); CREATININE 1.87 mg/dL (0.55-1.02)
--- NOTE | 2022-10-01 20:38 | CT ---
HISTORYLeft facial droopingSTUDYBRAIN W/O CONCOMPARISONNone available.TECHNIQUEAxial non-contrast images of the head were obtained with coronal and sagittal reformats provided.Radiation dose: 893.84 mGy-cm total DLPFINDINGSNo abnormal areas of acute attenuation in the brain parenchyma.Bass-white differentiation remains intact.No intracranial, extra-axial, fluid collection.No hemorrhage.Periventricular chronic microvascular disease.No mass, mass effect or midline shift.Age related brain parenchymal global atrophy.No ventriculomegaly.No acute fracture.Mucosal thickening in the right sphenoid sinus, otherwise, the sinuses are well aerated.Mastoid air cells are well aerated.Globes and intra-orbital contents are unremarkable.IMPRESSIONNo acute intracranial abnormality identified.Electronically signed by: Carl Venegas (Oct 01, 2022 20:37:17)
[2022-10-01] MEDS ORDERED: NS 1,000 ML IV 1,000 ML IV ONE (21:22)
[2022-10-01] MEDS ORDERED: ROCEPHIN VIAL 1 GRAM 1 G in NS 100 ML IV 100 ML IV ONE (21:23)
[2022-10-01] MEDS ORDERED: ROCEPHIN VIAL 1 GRAM ONE (21:44)
[2022-10-01] MEDS ORDERED: NS 100 ML IV 100 ML ONE (21:44)
[2022-10-01] MEDS ORDERED: NS 1,000 ML IV 1,000 ML ONE (21:52)
[2022-10-01] MEDS ORDERED: TORADOL 15 MG VIAL ONE (22:05)
[2022-10-01] MEDS ORDERED: TORADOL 15 MG VIAL IVP ONE (22:06)
[2022-10-02] MEDS ORDERED: NS 1,000 ML IV 1,000 ML ONE (00:40)
[2022-10-02] MEDS ORDERED: NS 1,000 ML IV 1,000 ML IV ONE (00:50)
[2022-10-02] MEDS ORDERED: ZOFRAN INJ 4 MG VIAL IVP PRN (04:41)
[2022-10-02] MEDS ORDERED: SYNTHROID 125 mcg TAB ONE (05:19)
[2022-10-02 05:21] LABS: BASOPHILS % (AUTO) 0.1 % (0.2-1.0); HEMATOCRIT 34.4 % (36.0-47.0); HEMOGLOBIN 11.3 g/dL (12.0-16.0); LYMPHOCYTES # (AUTO) 0.4 X10^3/uL (1.3-2.9); LYMPHOCYTES % (AUTO) 6.6 % (21.0-51.0); MEAN CORPUSCULAR HEMOGLOBIN 26.2 pg (27.0-34.0); MEAN CORPUSCULAR HGB CONC 32.7 g/dL (33.0-35.0); MEAN PLATELET VOLUME 9.3 fL (7.4-11.0); MONOCYTES # (AUTO) 0.4 x10^3/uL (0.3-0.8); MONOCYTES % (AUTO) 6.9 % (0.0-13.0); NEUTROPHILS # (AUTO) 5.3 x10^3/uL (2.2-4.8); NEUTROPHILS % (AUTO) 86.4 % (42.0-75.0); RED BLOOD COUNT 4.31 X10^6/uL (3.5-5.4); RED CELL DISTRIBUTION WIDTH 17.4 % (11.6-16.5); WHITE BLOOD COUNT 6.2 X10^3/uL (3.6-10.0)
[2022-10-02 05:29] LABS: ALBUMIN 3.1 g/dL (3.4-5.0); CALCIUM 8.4 mg/dL (8.5-10.1); CARBON DIOXIDE 22.4 mmol/L (21-32); COR CA(FOR HYPOALB) 9.1 mg/dL (8.5-10.1); CREATININE 2.05 mg/dL (0.55-1.02); MAGNESIUM 1.4 mg/dL (2.0-2.9); TOTAL PROTEIN 6.9 g/dL (6.4-8.2)
[2022-10-02] MEDS: SYNTHROID 125 mcg TAB PO SCH (05:35)
--- NOTE | 2022-10-02 05:58 | RAD ---
PROCEDURE: Chest X-ray 1 View .HISTORY: Patient stated that her left foot and hand is sore since 09-29-22, also stated she has been having chills since 09-30-22. .TECHNIQUE: AP view .COMPARISON: 06/27/2020.TECHNICAL QUALITY: Lordotic positioning.FINDINGS:Unchanged mild cardiomegaly.Mediastinum and hilar regions show no masses or lymphadenopathy .Normal central vascularity .No pulmonary consolidation, masses, pleural fluid, or pneumothorax .Previous anterior fusion lower cervical spine with plate and screws.IMPRESSION:1. Unchanged mild cardiomegaly.2. No other evidence of active disease.Electronically signed by: Sunny Coyle (Oct 02, 2022 05:56:58)
--- NOTE | 2022-10-02 06:00 | RAD ---
PROCEDURE: Left Wrist 2 Views .HISTORY: Patient stated that her left foot and hand is sore since 09-29-22, also stated she has been having chills since 09-30-22. .TECHNIQUE: Left AP and lateral views .COMPARISON: None .TECHNICAL QUALITY: Satisfactory .FINDINGS:No acute fracture or dislocation.No significant degenerative change.No other bony abnormality.Some atherosclerotic calcifications in soft tissues.IMPRESSION:No acute bony abnormality.Electronically signed by: Sunny Coyle (Oct 02, 2022 05:59:28)
--- NOTE | 2022-10-02 06:01 | RAD ---
HISTORYPatient stated that her left foot and hand is sore since 09-29-22, also stated she has been having chills since 09-30-22.STUDYANKLE, LEFT three-viewCOMPARISONNoneFINDINGSNo acute cortical disruption or dislocation can be identified. The ankle mortise remains well aligned. No significant soft tissue swelling or injury can be seen. Scattered vascular calcifications. Calcaneal enthesophytes.IMPRESSIONNo acute fracture or dislocation.Electronically signed by: SCHUYLER MORAN (Oct 02, 2022 05:59:52)
[2022-10-02] MEDS ORDERED: MAGNESIUM SULFATE 1 GRAM/100 mL PREMIX 1 G/100 ML BAG IV ONE (06:08)
[2022-10-02] MEDS: MAGNESIUM SULFATE 1 GRAM/100 mL PREMIX 1 G/100 ML BAG IV PRN ×4 (06:13→10:42)
[2022-10-02] MEDS ORDERED: ENTRESTO 24/26 MG TABLET PO SCH (09:00)
[2022-10-02] MEDS ORDERED: LASIX PO SCH (09:00)
[2022-10-02] MEDS ORDERED: SYNTHROID 100 mcg TAB PO SCH (09:00)
[2022-10-02] MEDS: RANEXA PO SCH ×2 (10:36→21:40)
[2022-10-02] MEDS: ELIQUIS PO SCH ×2 (10:37→20:50)
[2022-10-02 11:38] LABS: RHEUMATOID FACTOR NEGATIVE (NEGATIVE)
[2022-10-02 12:04] LABS: URIC ACID 5.7 mg/dL (2.6-6.0)
[2022-10-02] MEDS: TORADOL 30 MG VIAL IVP SCH ×2 (12:28→23:22)
[2022-10-02] MEDS: NovoLIN R (or HumuLIN R) SUBCUT PRN (12:42)
[2022-10-02] MEDS: VOLTAREN 1 % GEL MULTI DOSE TUBE TOP SCH ×2 (13:26→21:42)
[2022-10-02] MEDS ORDERED: SNACK - Diabetic Appropriate PO SCH (20:00)
[2022-10-02] MEDS: SNACK - Diabetic Appropriate PO SCH (20:00)
[2022-10-02] MEDS: ROCEPHIN VIAL 1 GRAM 1 G in NS 100 ML IV 100 ML IV SCH (20:50)
[2022-10-02] MEDS: LIPITOR TAB 40 MG PO SCH (20:50)
[2022-10-02] MEDS: LANTUS SC SCH (21:39)
[2022-10-03 05:13] LABS: BASOPHILS % (AUTO) 0.2 % (0.2-1.0); EOSINOPHILS # (AUTO) 0.1 x10^3/uL (0.0-0.2); EOSINOPHILS % (AUTO) 1.2 % (0.9-2.9); HEMATOCRIT 30.5 % (36.0-47.0); HEMOGLOBIN 10.2 g/dL (12.0-16.0); LYMPHOCYTES # (AUTO) 0.7 X10^3/uL (1.3-2.9); LYMPHOCYTES % (AUTO) 13.1 % (21.0-51.0); MEAN CORPUSCULAR HEMOGLOBIN 26.4 pg (27.0-34.0); MEAN CORPUSCULAR HGB CONC 33.6 g/dL (33.0-35.0); MEAN CORPUSCULAR VOLUME 78.5 fL (80.0-100.0); MEAN PLATELET VOLUME 9.6 fL (7.4-11.0); MONOCYTES # (AUTO) 0.7 x10^3/uL (0.3-0.8); MONOCYTES % (AUTO) 13.8 % (0.0-13.0); NEUTROPHILS # (AUTO) 3.8 x10^3/uL (2.2-4.8); NEUTROPHILS % (AUTO) 71.7 % (42.0-75.0); RED BLOOD COUNT 3.89 X10^6/uL (3.5-5.4); RED CELL DISTRIBUTION WIDTH 17.6 % (11.6-16.5); WHITE BLOOD COUNT 5.3 X10^3/uL (3.6-10.0)
[2022-10-03 05:32] LABS: ALBUMIN 2.3 g/dL (3.4-5.0); CALCIUM 8.1 mg/dL (8.5-10.1); CARBON DIOXIDE 24.5 mmol/L (21-32); COR CA(FOR HYPOALB) 9.5 mg/dL (8.5-10.1); CREATININE 1.84 mg/dL (0.55-1.02); MAGNESIUM 2.7 mg/dL (2.0-2.9); TOTAL PROTEIN 5.9 g/dL (6.4-8.2)
[2022-10-03 05:47] LABS: PLATELET MORPHOLOGY COMMENT NORMAL (NORMAL)
[2022-10-03 05:48] LABS: ANISOCYTOSIS SLIGHT; HYPOCHROMASIA SLIGHT; MICROCYTOSIS SLIGHT
[2022-10-03] MEDS: VOLTAREN 1 % GEL MULTI DOSE TUBE TOP SCH ×3 (05:50→20:59)
[2022-10-03] MEDS: SYNTHROID 125 mcg TAB PO SCH (05:51)
--- NOTE | 2022-10-03 10:14 | DR.H&P ---
H&P - History & Physical for Day of: H&P Date: 10/02/22 - Chief Complaint Chief Complaint: FEVER, CHILLS, WEAKNESS, LEFT WRIST AND LEFT ANKLE PAIN - History of Present Illness History of Present Illness: IS A 77 YEAR OLD PATIENT OF OURS. SHE PRESENTED TO THE ER WITH COMPLAINTS OF FEVER, CHILLS, AND GENERALIZED WEAKNESS. ADDITIONALLY, SHE COMPLAINED OF LEFT WRIST PAIN AND LEFT ANKLE PAIN. PATIENT REPORTS FALLING ON 09/29/22. HER FAMILY MEMBERS REPORT THAT SHE HAS HAD CONFUSION AND LEFT SIDED FACIAL DROOPING THAT STARTED EARLIER IN THE DAY, PRIOR TO ARRIVAL. FEVER, CHILLS, WEAKNESS, AND PAIN STARTED TWO DAYS PRIOR TO ARRIVAL. S HE DENIES DIARRHEA, CONSTIPATION, COUGH, SHORTNESS OF BREATH, OR NASAL SYMPTOMS. PATIENT DESCRIBES PAIN THROBBING AND WORSE WITH MOVEMENT OR WHEN BEING TOUCHED. SHE RATES PAIN A 6/10. HER PAST MEDICAL HISTORY INCLUDES: DM II, HYPERTHYROIDISM, DE, RENAL DISEASE, CHF, ATRIAL FIBRILLATION, HX LEFT BREAST CANCER, CARDIAC STENTS, HYSTERECTOMY, MASTECTOMY, AND BILATERAL KNEE REPLACEMENTS. ON ARRIVAL TO THE ER, HER VITALS WERE: 102.7-104-22-97%-134/81. LABS WERE OBTAINED. WBC 6.9, RBC 4.23, HGB 11.1, HCT 33.6, PLT COUNT 93, SODIUM 131, POTASSIUM 3.4, CHLORIDE 96, BUN 24, CREATININE 1.87, GLUCOSE 164, CALCIUM 8.6, TOTAL BILI 1.00, AST 34, ALT 37, ALK PHOS 78, CREATINE KINASE 168, TROPONIN 69.6, TOTAL PROTEIN 7.0, ALBUMIN 3.3, CRP 247.40, URIC ACID 5.7. A URINALYSIS WAS OBTAINED AND REVEALED: WBC TNTC, RBC TNTC, BACTERIA 3+, LEUKOCYTES 2+, NITRITES POSITIVE. URINE DRUG SCREEN NEGATIVE. ACETONES NEGATIVE. COVID, INFLUENZA, RSV, AND STREP NEGATIVE. URINE AND BLOOD CULTURES WERE SET UP. A LEFT ANKLE XRAY WAS OBTAINED AND REVEALED: NO ACUTE FRACTURE OR DISLOCATION. LEFT WRIST XRAY WAS OBTAINED AND REVEALED: NO ACUTE BONY ABNORMALITY. CHEST XRAY WAS OBTAINED AND REVEALED: UNCHANGED MILD CARDIOMEGALY. NO OTHER EVIDENCE OF ACTIVE DISEASE. A BRAIN CT WITHOUT CONTRAST WAS OBTAINED AND REVEALED: No acute intracranial abnormality identified. EKG REVEALED: NORMAL SINUS RHYTHM WITH HR 81. IN THE ER, SHE WAS GIVEN TYLENOL 1000MG PO X 1, A NORMAL SALINE BOLUS, ROCEPHIN 1G IV X 1, TORADOL 15MG IV X 1. SHE WAS ADMITTED TO THE HOSPITAL OBSERVATION STATUS FOR FURTHER EVALUATION AND TREATMENT OF DEHYDRATION, URINARY TRACT INFECTION, ELEVATED TROPONIN, INTRACTABLE PAIN, GENERALIZED WEAKNESS, AND ALTERED MENTAL STATUS. SHE WAS STARTED ON NORMAL SALINE AT 50 ML/HR, ROCEPHIN 1G IV HS, OTBS ACHS, HUMULIN R SLIDING SCALE, ZOFRAN 4MG IV Q6H PRN, TORADOL 30MG IV Q12H, BOLTAREN GET TID. WE WILL RESUME HER HOME MEDICATIONS OF ELIQUIS, LIPITOR, FARXIGA, LANTUS, SYNTHROID, ENTRESTO, AND [place]. WE WILL REPEAT CARDIAC ENZYMES. WE WILL HAVE PHYSICAL THERAPY EVALUATE HER. OTHERWISE, WE WILL FOLLOW-UP WITH AM LABS AND CONTINUE TO MONITOR. - Past Medical History Past Medical History: CHF, Diabetes, Hyperthyroidism, DE, Renal Disease Additional Medical History: A-FIB - Past Surgical History Surgical History: Angioplasty/Stents, Hysterectomy, Mastectomy, Ortho Surgery - Family History Family Medical History: Diabetes Mellitus, Cancer - Social History Does patient currently use any type of tobacco product: No Have you used tobacco products in the last 12 months: No Type of Tobacco Use: None Does any household member use tobacco: No Alcohol Use: None Drug Use: None - Medications Home Medications: No Known Allergies Allergy (Verified 10/02/22 02:20) CONTINUE taking the following medications apixaban 5 mg tablet (Eliquis) 1 tab PO BID 10/01/22 [History] dapagliflozin 10 mg tablet (Farxiga) 1 tab PO QDAY 10/01/22 [History] sacubitril 24 mg-valsartan 26 mg tablet (Entresto) 1 tab PO BID 10/01/22 [History] - Review of Systems Constitutional: Fever, Chills, Weakness Eyes: No Symptoms Reported ENT: No Symptoms Reported Respiratory: No Symptoms Reported Cardiovascular: No Symptoms Reported Gastrointestinal: No Symptoms Reported Genitourinary: No Symptoms Reported Musculoskeletal: See HPI, Other (LEFT WRIST PAIN, LEFT ANKLE PAIN ) Skin: No Symptoms Reported Neurological: Weakness - Physical Exam Vital Signs: Temperature 97.9 F Pulse Rate [Apical] 62 Pulse Rate 57 Respiratory Rate 16 Blood Pressure [Right Arm] 103/52 Blood Pressure 103/53 O2 Sat by Pulse Oximetry 100 Oriented: Not Oriented Eyes: Normal Ear: Normal Nose: Normal Throat: Normal Respiratory: Diminished Throughout Cardiovascular: Tachycardia : Normal Auscultation: Bowel Sounds: Normal Palpation: Normal Tenderness: Normal Skin: Decreased Turgur Musculoskeletal: Left, Wrist, Ankle, Tender Psychiatric: Normal Mood Description: Calm Affect: Normal Speech Pattern: Clear - Assessment/Plan (1) Dehydration Status: Acute Plan: ADMIT, PHYSICAL THERAPY, REPEAT LABS, URINE AND BLOOD CULTURES PENDING. NORMAL SALINE AT 60 ML/HR, ROCEPHIN 1G IV HS, OTBS ACHS, HUMULIN R SLIDING SCALE, ZOFRAN 4MG IV Q6H PRN, TORADOL 30MG IV Q12H, VOLTAREN GET TID. WE WILL RESUME HER HOME MEDICATIONS OF ELIQUIS, LIPITOR, FARXIGA, LANTUS, SYNTHROID, ENTRESTO, AND RENEXA. (2) UTI (urinary tract infection) Qualifiers: Urinary tract infection type: site unspecified Hematuria presence: with hematuria Qualified Code(s): N39.0 - Urinary tract infection, site not specified; R31.9 - Hematuria, unspecified Status: Acute (3) Altered mental state Qualifiers: Altered mental status type: transient alteration of awareness Qualified Code(s): R40.4 - Transient alteration of awareness Status: Acute (4) Intractable pain Status: Acute (5) Generalized weakness Status: Acute (6) Elevated troponin Status: Acute (7) Congestive heart failure Qualifiers: Heart failure chronicity: chronic Status: Chronic (8) Diabetes mellitus Qualifiers: Diabetes mellitus type: type 2 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 transplanted heart: [place] heart Associated angina: angina presence unspecified Qualified Code(s): I25.10 - Atherosclerotic heart disease of [place] coronary artery without angina pectoris Status: Chronic (10) Atrial fibrillation Qualifiers: Atrial fibrillation type: paroxysmal Qualified Code(s): I48.0 - Paroxysmal atrial fibrillation Status: Chronic - Allergies Allergies/Adverse Reactions: Allergies Allergy/AdvReac Type Severity Reaction Status Date / Time No Known Allergies Allergy Verified 10/02/22 02:20
[2022-10-03] MEDS: ELIQUIS PO SCH ×2 (10:35→20:58)
[2022-10-03] MEDS: NS 1,000 ML IV 1,000 ML IV SCH (10:35)
[2022-10-03] MEDS: RANEXA PO SCH ×2 (10:36→23:24)
[2022-10-03] MEDS: TORADOL 30 MG VIAL IVP SCH ×2 (10:40→23:21)
[2022-10-03 18:48] LABS: BILIRUBIN,URINE NEGATIVE (NEGATIVE); BLOOD/HEMOGLOBIN,URINE 3+ (NEGATIVE); GLUCOSE, URINE 4+ (NEGATIVE); KETONES,URINE NEGATIVE (NEGATIVE); LEUKOCYTE ESTERASE ,URINE NEGATIVE (NEGATIVE); NITRITES,URINE NEGATIVE (NEGATIVE); PROTEIN,URINE 1+ (NEGATIVE); UROBILINOGEN,URINE NORMAL (NORMAL)
[2022-10-03 18:56] LABS: APPEARANCE,URINE CLEAR (CLEAR); COLOR,URINE PALE YELLOW (YELLOW)
[2022-10-03 18:57] LABS: BACTERIA,URINE TRACE /HPF (NEGATIVE); RBC,URINE 0-2 /HPF (0-3); SQUAMOUS EPITHELIAL CELL,UR RARE /HPF (NEGATIVE); YEAST,URINE MANY /HPF (NEGATIVE)
[2022-10-03] MEDS: SNACK - Diabetic Appropriate PO SCH (20:00)
[2022-10-03] MEDS: LIPITOR TAB 40 MG PO SCH (20:58)
[2022-10-03] MEDS: ROCEPHIN VIAL 1 GRAM 1 G in NS 100 ML IV 100 ML IV SCH (21:00)
[2022-10-03] MEDS: LANTUS SC SCH (21:04)
[2022-10-03] MEDS: NovoLIN R (or HumuLIN R) SUBCUT PRN (21:14)
[2022-10-04 04:45] LABS: BASOPHILS % (AUTO) 0.1 % (0.2-1.0); EOSINOPHILS # (AUTO) 0.1 x10^3/uL (0.0-0.2); EOSINOPHILS % (AUTO) 1.4 % (0.9-2.9); HEMATOCRIT 31.2 % (36.0-47.0); HEMOGLOBIN 10.2 g/dL (12.0-16.0); LYMPHOCYTES # (AUTO) 0.8 X10^3/uL (1.3-2.9); LYMPHOCYTES % (AUTO) 15.7 % (21.0-51.0); MEAN CORPUSCULAR HEMOGLOBIN 26.1 pg (27.0-34.0); MEAN CORPUSCULAR HGB CONC 32.9 g/dL (33.0-35.0); MEAN CORPUSCULAR VOLUME 79.3 fL (80.0-100.0); MEAN PLATELET VOLUME 9.6 fL (7.4-11.0); MONOCYTES # (AUTO) 0.7 x10^3/uL (0.3-0.8); MONOCYTES % (AUTO) 12.8 % (0.0-13.0); NEUTROPHILS # (AUTO) 3.6 x10^3/uL (2.2-4.8); RED BLOOD COUNT 3.93 X10^6/uL (3.5-5.4); RED CELL DISTRIBUTION WIDTH 17.5 % (11.6-16.5); WHITE BLOOD COUNT 5.1 X10^3/uL (3.6-10.0)
[2022-10-04 04:50] LABS: ALANINE AMINOTRANSFERASE 34 Units/L (12-78); ALBUMIN 2.3 g/dL (3.4-5.0); ALKALINE PHOSPHATASE 69 Units/L (46-116); ASPARTATE AMINO TRANSFERASE 40 Units/L (15-37); BLOOD UREA NITROGEN 31 mg/dL (7-18); CARBON DIOXIDE 24.8 mmol/L (21-32); CHLORIDE 103 mmol/L (98-107); COR CA(FOR HYPOALB) 9.4 mg/dL (8.5-10.1); CREATININE 1.54 mg/dL (0.55-1.02); SODIUM 137 mmol/L (136-145); eGFR NON BLACK RACES 35 (>60)
[2022-10-04] MEDS: SYNTHROID 125 mcg TAB PO SCH (05:40)
[2022-10-04] MEDS: NS 1,000 ML IV 1,000 ML IV SCH ×2 (05:41→14:04)
[2022-10-04] MEDS: VOLTAREN 1 % GEL MULTI DOSE TUBE TOP SCH ×3 (05:41→21:02)
[2022-10-04] MEDS: RANEXA PO SCH ×2 (10:05→20:56)
[2022-10-04] MEDS: ENTRESTO 24/26 MG TABLET PO SCH ×2 (10:05→20:54)
[2022-10-04] MEDS: ELIQUIS PO SCH ×2 (10:05→20:53)
[2022-10-04] MEDS: TORADOL 30 MG VIAL IVP SCH ×3 (10:08→23:02)
--- NOTE | 2022-10-04 10:48 | PCM.PROG ---
Progress Note - Progress Note for Day of Date of Exam: 10/03/22 - Subjective Subjective: IS A 77 YEAR OLD PATIENT OF OURS. SHE IS CURRENTLY OBSERVATION STATUS. SHE WAS ADMITTED TO THE HOSPITAL FOR TREATMENT OF DEHYDRATION, URINARY TRACT INFECTION, ALTERED MENTAL STATUS, INTRACTABLE PAIN, GENERALIZED WEAKNESS, AND ELEVATED TROPONINS. ADDITIONALLY, SHE HAS A PMH OF CHF, DM II, CAD, AND ATRIAL FIBRILLATION. SHE HAS BEEN AFEBRILE SINCE ADMISSION. TODAY, SHE IS ALERT AND ORIENTED, LYING IN BED ON MORNING ROUNDS. SHE COMPLAINS OF WEAKNESS AND PERSISTENT PAIN TO THE LEFT WRIST AND LEFT ANKLE. SHE REPORTS SLIGHT IMPROVEMENT IN PAIN SINCE RECEIVING THE TORADOL. SHE RATES HER PAIN A 5/10 THIS MORNING. PAIN IS DESCRIBED DULL, THROBBING, AND INTERMITTENT. PAIN IS WORSE WITH MOVEMENT OR ACTIVITY. SHE WAS HYPOTENSIVE ON ADMISSION. SHE HAS REMAINED HYPOTENSIVE SINCE YESTERDAY. ON EXAMINATION, HEART IS REGULAR IN RATE AND RHYTHM. BILATERAL LUNGS ARE NOTED WITH DIMINISHED LUNG SOUNDS THROUGHOUT. ABDOMEN IS ROUND, SOFT, AND NON-TENDER WITH NORMAL BOWEL SOUNDS NOTED IN ALL QUADRANTS. TENDERNESS NOTED WITH PALPATION TO THE LEFT WRIST AND THE LEFT ANKLE. SLIGHT EDEMA NOTED TO THE LEFT WRIST. HER VITALS THIS MORNING ARE: 97.9-62-16-100%-103/52. LABS WERE OBTAINED. WBC 5.3, RBC 3.89, HGB 10.2, HCT 30.5, PLT COUNT 88, SODIUM 133, POTASSIUM 3.4, CHLORIDE 100, BUN 33, CREATININE 1.84, GLUCOSE 129, CALCIUM 8.1, AST 28, ALT 26, ALK PHOS 61, TOTAL PROTEIN 5.9, ALBUMIN 2.3. RHEUMATOID PANEL IS PENDING. BLOOD AND URINE CULTURES ARE PENDING. PRELIMINARY BLOOD CULTURES ARE POSITIVE FOR GROWTH OF GRAM POSITIVE COCCI. SHE IS CURRENTLY RECEIVING NORMAL SALINE AT 50 ML/HR, ROCEPHIN 1G IV HS, OTBS ACHS, HUMULIN R SLIDING SCALE, ZOFRAN 4MG IV Q6H PRN, TORADOL 30MG IV Q12H, VOLTAREN GET TID. WE WILL RESUME HER HOME MEDICATIONS OF ELIQUIS, LIPITOR, FARXIGA, LANTUS, SYNTHROID, AND RENEXA. HER ENTRESTO AND LASIX HAVE BEEN HELD DUE TO HYPOTENSION AND DEHYDRATION. WE WILL HAVE PHYSICAL THERAPY EVALUATE AND WORK WITH HER TODAY. OTHERWISE, WE WILL CONTINUE WITH CURRENT PLAN OF CARE. WE WILL FOLLOW-UP WITH AM LABS AND CHEST XRAY AND CONTINUE TO MONITOR. TIME SPENT ON CLINICAL ASSESSMENT, REVIWING LABS AND IMAGING, DECISION MAKING, AND DOCUMENTATION GREATER THAN 45 MINUTES. - Past Medical Family Social History Past Med/Fam/Surg Hx: No changes since H&P Allergies: Allergies No Known Allergies Allergy (Verified 10/02/22 02:20) - Review of Systems ROS: No change since H&P - Vital Signs and I&O's Vital Signs: Temperature 98.4 F Pulse Rate [Apical] 59 Pulse Rate 57 Respiratory Rate 20 Blood Pressure [Right Arm] 112/57 Blood Pressure 103/53 O2 Sat by Pulse Oximetry 99 Intake and Output: Intake & Output 10/01/22 10/02/22 10/03/22 10/04/22 11:59 11:59 11:59 11:59 Intake Total 309 / 309 3511 / 3511 2774 / 2774 Output Total 1800 / 1800 Balance 309 / 309 1711 / 1711 2774 / 2774 - Physical Exam Oriented: Person Eyes: Normal Ear: Normal Nose: Normal Throat: Normal Respiratory: Generalized, Diminished Cardiovascular: Normal : Normal Auscultation: Bowel Sounds: Normal Palpation: Normal Tenderness: Normal Skin: Decreased Turgur Musculoskeletal: Left, Wrist, Ankle, Tender Psychiatric: Normal Mood Description: Calm Affect: Normal Speech Pattern: Clear, Appropriate - Laboratory and Diagnostics Result Diagrams: 10/04/22 04:00 10/04/22 04:00 Labs: 10/03/22 18:35 Urine,Clean Catch Urine Culture - Preliminary 10/01/22 19:59 Blood Blood Culture - Preliminary 10/01/22 19:45 Blood Blood Culture - Preliminary 10/01/22 18:59 Urine,Clean Catch Urine Culture - Final Laboratory WBC 5.1 X10^3/uL (3.6-10.0) 10/04/22 04:00 RBC 3.93 X10^6/uL (3.5-5.4) 10/04/22 04:00 Hgb 10.2 g/dL (12.0-16.0) L 10/04/22 04:00 Hct 31.2 % (36.0-47.0) L 10/04/22 04:00 MCV 79.3 fL (80.0-100.0) L 10/04/22 04:00 MCH 26.1 pg (27.0-34.0) L 10/04/22 04:00 MCHC 32.9 g/dL (33.0-35.0) L 10/04/22 04:00 RDW 17.5 % (11.6-16.5) H 10/04/22 04:00 Plt Count 99 X10^3/uL (150.0-450.0) L 10/04/22 04:00 Plt Count Comment Decreased (ADEQUATE) A 10/03/22 04:20 MPV 9.6 fL (7.4-11.0) 10/04/22 04:00 Neut % (Auto) 70.0 % (42.0-75.0) 10/04/22 04:00 Lymph % (Auto) 15.7 % (21.0-51.0) L 10/04/22 04:00 [place] % (Auto) 12.8 % (0.0-13.0) 10/04/22 04:00 Eos % (Auto) 1.4 % (0.9-2.9) 10/04/22 04:00 Baso % (Auto) 0.1 % (0.2-1.0) L 10/04/22 04:00 Neut # (Auto) 3.6 x10^3/uL (2.2-4.8) 10/04/22 04:00 Lymph # (Auto) 0.8 X10^3/uL (1.3-2.9) L 10/04/22 04:00 [place] # (Auto) 0.7 x10^3/uL (0.3-0.8) 10/04/22 04:00 Eos # (Auto) 0.1 x10^3/uL (0.0-0.2) 10/04/22 04:00 Baso # (Auto) 0.0 X10^3/uL (0.0-0.1) 10/04/22 04:00 Absolute Nucleated RBC 0.0 /100WBC 10/04/22 04:00 Total Counted 100 10/03/22 04:20 Neutrophils % (Manual) 79 % (39-76) H 10/03/22 04:20 Lymphocytes % (Manual) 10 % (13-43) L 10/03/22 04:20 Monocytes % (Manual) 9 % (4-9) 10/03/22 04:20 Eosinophils % (Manual) 2 % (0-6) 10/03/22 04:20 Plt Morphology Comment Normal (NORMAL) 10/03/22 04:20 RBC Morphology Abnormal (NORMAL) A 10/03/22 04:20 Hypochromasia Slight A 10/03/22 04:20 Anisocytosis Slight A 10/03/22 04:20 Microcytosis Slight A 10/03/22 04:20 ESR 61 MM/HOUR (0-20) H 10/02/22 11:38 Sodium 137 mmol/L (136-145) 10/04/22 04:00 Corrected Sodium TNP 10/04/22 04:00 Potassium 3.5 mmol/L (3.5-5.1) 10/04/22 04:00 Chloride 103 mmol/L (98-107) 10/04/22 04:00 Carbon Dioxide 24.8 mmol/L (21-32) 10/04/22 04:00 BUN 31 mg/dL (7-18) H 10/04/22 04:00 Creatinine 1.54 mg/dL (0.55-1.02) H 10/04/22 04:00 Est GFR (MDRD) Af Amer 42 (>60) L 10/04/22 04:00 Est GFR (MDRD) Non-Af 35 (>60) L 10/04/22 04:00 Glucose 100 mg/dL (65-99) H 10/04/22 04:00 POC Glucose (mg/dL) 115 mg/dL (65-99) H 10/04/22 05:37 Lactic Acid 1.3 mmol/L (0.4-2.0) 10/01/22 19:59 Uric Acid 5.7 mg/dL (2.6-6.0) 10/02/22 11:38 Calcium 8.0 mg/dL (8.5-10.1) L 10/04/22 04:00 Corrected Calcium 9.4 mg/dL (8.5-10.1) 10/04/22 04:00 Magnesium 2.7 mg/dL (2.0-2.9) 10/03/22 04:20 Total Bilirubin 0.30 mg/dL (0.2-1.0) 10/04/22 04:00 AST 40 Units/L (15-37) H 10/04/22 04:00 ALT 34 Units/L (12-78) 10/04/22 04:00 Alkaline Phosphatase 69 Units/L (46-116) 10/04/22 04:00 Creatine Kinase 180 Units/L (26-192) 10/02/22 11:38 Troponin I High Sens 62.1 ng/L (4.0-60.0) H* 10/01/22 23:15 C-Reactive Protein 149.70 mg/L (0-3.0) H 10/04/22 04:00 B-Natriuretic Peptide 1200 pg/mL (0-79) H* 10/04/22 04:00 Total Protein 6.0 g/dL (6.4-8.2) L 10/04/22 04:00 Albumin 2.3 g/dL (3.4-5.0) L 10/04/22 04:00 Globulin 3.7 g/dL (2.5-4.5) 10/04/22 04:00 Albumin/Globulin Ratio 0.6 Ratio (1.1-2.1) L 10/04/22 04:00 Specimen Type Clean catch urine 10/03/22 18:35 Urine Color Pale yellow (YELLOW) 10/03/22 18:35 Urine Appearance Clear (CLEAR) 10/03/22 18:35 Urine pH 6.0 (5.0 - 8.0) 10/03/22 18:35 Ur Specific [place] 1.020 (1.000-1.030) 10/03/22 18:35 Urine Protein 1+ (NEGATIVE) 10/03/22 18:35 Urine Glucose (UA) 4+ (NEGATIVE) 10/03/22 18:35 Urine Ketones Negative (NEGATIVE) 10/03/22 18:35 Urine Blood 3+ (NEGATIVE) 10/03/22 18:35 Urine Nitrite Negative (NEGATIVE) 10/03/22 18:35 Urine Bilirubin Negative (NEGATIVE) 10/03/22 18:35 Urine Urobilinogen Normal (NORMAL) 10/03/22 18:35 Ur Leukocyte Esterase Negative (NEGATIVE) 10/03/22 18:35 Urine RBC 0-2 /HPF (0-3) 10/03/22 18:35 Urine WBC 0-2 /HPF (0-5) 10/03/22 18:35 Ur Squamous Epith Cells Rare /HPF (NEGATIVE) 10/03/22 18:35 Amorphous Sediment Trace /HPF (NEGATIVE) 10/03/22 18:35 Urine Bacteria Trace /HPF (NEGATIVE) 10/03/22 18:35 Urine Yeast Many /HPF (NEGATIVE) 10/03/22 18:35 Ur Culture Indicated? No/not indicated 10/03/22 18:35 Urine Opiates Screen Negative (NEG=<300) 10/01/22 18:59 Urine Methadone Screen Negative (NEG=<300) 10/01/22 18:59 Ur Barbiturates Screen Negative (NEG=<200) 10/01/22 18:59 Ur Phencyclidine Scrn Negative (NEG=<25) 10/01/22 18:59 Ur Amphetamines Screen Negative (NEG=<1000) 10/01/22 18:59 U Benzodiazepines Scrn Negative (NEG=<200) 10/01/22 18:59 Urine Cocaine Screen Negative (NEG=<300) 10/01/22 18:59 U Marijuana (THC) Screen Negative (NEG=<50) 10/01/22 18:59 Acetone, Semi-Quant Negative (NEGATIVE) 10/01/22 21:30 Rheumatoid Factor Negative (NEGATIVE) 10/02/22 04:48 SARS-CoV-2 (PCR) Negative (NEGATIVE) 10/01/22 19:17 Influenza Type A (PCR) Negative (NEGATIVE) 10/01/22 19:17 Influenza Type B (PCR) Negative (NEGATIVE) 10/01/22 19:17 RSV (PCR) Negative (NEGATIVE) 10/01/22 19:17 S. pyogenes (TEM-PCR) Not detected (NOT DETECT) 10/01/22 19:17 - Plan (1) Sepsis due to urinary tract infection Status: Acute Plan: PHYSICAL THERAPY, REPEAT LABS, URINE AND BLOOD CULTURES PENDING. NORMAL SALINE AT 60 ML/HR, ROCEPHIN 1G IV HS, OTBS ACHS, HUMULIN R SLIDING SCALE, ZOFRAN 4MG IV Q6H PRN, TORADOL 30MG IV Q12H, VOLTAREN GET TID. WE WILL RESUME HER HOME MEDICATIONS OF ELIQUIS, LIPITOR, FARXIGA, LANTUS, SYNTHROID, ENTRESTO, AND RENEXA. 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 transplanted heart: [place] heart Associated angina: angina presence unspecified Qualified Code(s): I25.10 - Atherosclerotic heart disease of [place] coronary artery without angina pectoris (10) Atrial fibrillation Status: Chronic Qualifiers: Atrial fibrillation type: paroxysmal Qualified Code(s): I48.0 - Paroxysmal atrial fibrillation
[2022-10-04] MEDS: SNACK - Diabetic Appropriate PO SCH (19:40)
[2022-10-04] MEDS: LIPITOR TAB 40 MG PO SCH (20:55)
[2022-10-04] MEDS: ROCEPHIN VIAL 1 GRAM 1 G in NS 100 ML IV 100 ML IV SCH (20:56)
[2022-10-04] MEDS: LANTUS SC SCH (20:56)
[2022-10-05 05:12] LABS: BASOPHILS % (AUTO) 0.2 % (0.2-1.0); EOSINOPHILS # (AUTO) 0.1 x10^3/uL (0.0-0.2); EOSINOPHILS % (AUTO) 2.4 % (0.9-2.9); HEMATOCRIT 30.6 % (36.0-47.0); HEMOGLOBIN 10.2 g/dL (12.0-16.0); LYMPHOCYTES # (AUTO) 0.9 X10^3/uL (1.3-2.9); LYMPHOCYTES % (AUTO) 15.3 % (21.0-51.0); MEAN CORPUSCULAR HEMOGLOBIN 26.4 pg (27.0-34.0); MEAN CORPUSCULAR HGB CONC 33.4 g/dL (33.0-35.0); MEAN PLATELET VOLUME 9.8 fL (7.4-11.0); MONOCYTES # (AUTO) 0.6 x10^3/uL (0.3-0.8); MONOCYTES % (AUTO) 9.9 % (0.0-13.0); NEUTROPHILS # (AUTO) 4.1 x10^3/uL (2.2-4.8); NEUTROPHILS % (AUTO) 72.2 % (42.0-75.0); RED BLOOD COUNT 3.87 X10^6/uL (3.5-5.4); RED CELL DISTRIBUTION WIDTH 17.4 % (11.6-16.5); WHITE BLOOD COUNT 5.7 X10^3/uL (3.6-10.0)
[2022-10-05] MEDS: VOLTAREN 1 % GEL MULTI DOSE TUBE TOP SCH ×3 (05:30→21:18)
[2022-10-05] MEDS: NS 1,000 ML IV 1,000 ML IV SCH ×2 (05:30→18:02)
[2022-10-05] MEDS: SYNTHROID 125 mcg TAB PO SCH (05:30)
[2022-10-05 05:32] LABS: ALANINE AMINOTRANSFERASE 43 Units/L (12-78); ALBUMIN 2.1 g/dL (3.4-5.0); ALKALINE PHOSPHATASE 73 Units/L (46-116); ASPARTATE AMINO TRANSFERASE 47 Units/L (15-37); BLOOD UREA NITROGEN 24 mg/dL (7-18); CALCIUM 7.9 mg/dL (8.5-10.1); CARBON DIOXIDE 24.6 mmol/L (21-32); CHLORIDE 105 mmol/L (98-107); COR CA(FOR HYPOALB) 9.4 mg/dL (8.5-10.1); CREATININE 1.27 mg/dL (0.55-1.02); SODIUM 138 mmol/L (136-145); TOTAL PROTEIN 5.9 g/dL (6.4-8.2); eGFR NON BLACK RACES 43 (>60)
[2022-10-05] MEDS: RANEXA PO SCH ×2 (08:49→20:30)
[2022-10-05] MEDS: ELIQUIS PO SCH ×2 (08:49→20:31)
[2022-10-05] MEDS: ENTRESTO 24/26 MG TABLET PO SCH ×2 (08:49→20:30)
[2022-10-05] MEDS: TORADOL 30 MG VIAL IVP SCH ×3 (08:59→23:29)
[2022-10-05] MEDS: ZOSYN VIAL 3.375 GRAMS 3.375 G in NS 100 ML IV 100 ML IV SCH ×3 (12:41→21:18)
--- NOTE | 2022-10-05 13:57 | MRI ---
HISTORYSEPSIS, INTRACTABLE LEFT WRIST PAIN AND SWELLINGSTUDYEXT UPPER JOINT W/O CON MRI of the left wristCOMPARISONLeft wrist radiographs 10/01/2022TECHNIQUEMultiplanar multisequence 3.0 [employer]orsche MR images of the left rib were obtained. Intravenous contrast was not administered. Intra-articular contrast was not administered. There were no procedural complications.FINDINGSOSSEOUS STRUCTURES:Osseous structures and alignment appear unremarkable. No focal erosions appreciated. No evidence of acute fracture or dislocation. No significant arthrosis.INTRINSIC LIGAMENTS: Intrinsic ligaments of the wrist including the scapholunate and lunotriquetral ligaments are intact.TRIANGULAR FIBROCARTILAGE COMPLEX:The triangular fibrocartilage is intact. Small radial ulnar joint effusionTENDONS:The flexor and extensor tendons appear normal in size and signal. No tenosynovitis.CARPAL TUNNEL:The contents of the carpal tunnel are unremarkable.MUSCULATURE AND SOFT TISSUES: Diffuse soft tissue swelling and skin thickening. No focal soft tissue lesions identified. Regional musculature has normal MR signal and bulk.IMPRESSIONSmall amount of fluid is seen within the carpals and the radial ulnar joint. These findings are nonspecific and may be secondary to inflammation/infection, such as septic arthritis. No evidence of osseous erosions on today's exam.Diffuse soft tissue swelling and skin thickening. These findings are suggestive of cellulitis. Recommend correlation with physical exam.Electronically signed by: Jacobo Ewing (Oct 05, 2022 13:56:20)
[2022-10-05] MEDS: DIFLUCAN 200 MG IV PREMIX* 200 MG/100 ML BAG IV SCH (16:50)
[2022-10-05] MEDS ORDERED: POTASSIUM CHL 40 MEQ/NS 0.45% 500 ML IV PRN (17:59)
[2022-10-05] MEDS ORDERED: KLOR-CON PO PRN (17:59)
[2022-10-05] MEDS ORDERED: POTASSIUM CHL 60 MEQ/NS 0.45% 500 ML IV PRN (17:59)
[2022-10-05] MEDS ORDERED: K-DUR TAB 20 MEQ PO PRN (17:59)
[2022-10-05] MEDS ORDERED: POTASSIUM CHLORIDE LIQ 20 MEQ UDC PO PRN (17:59)
[2022-10-05] MEDS ORDERED: K-RIDER 10 MEQ/NS 100 ML 10 MEQ/100 ML BAG IV PRN (17:59)
[2022-10-05] MEDS ORDERED: MICRO K EXTEN CAP 10 MEQ PO PRN (17:59)
[2022-10-05] MEDS: LIPITOR TAB 40 MG PO SCH (20:30)
[2022-10-05] MEDS: LANTUS SC SCH (20:39)
[2022-10-05] MEDS: SNACK - Diabetic Appropriate PO SCH (20:42)
--- NOTE | 2022-10-05 21:58 | PCM.PROG ---
Progress Note - Progress Note for Day of Date of Exam: 10/04/22 - Subjective Subjective: IS A 77 YEAR OLD PATIENT OF OURS. SHE IS CURRENTLY OBSERVATION STATUS. SHE IS CURRENTLY BEING TREATED FOR SEPSIS, URINARY TRACT INFECTION, DEHYDRATION, ALTERED MENTAL STATUS, INTRACTABLE PAIN, AND GENERALIZED WEAKNESS. ADDITIONALLY, SHE HAS A PMH OF CHF, DM II, CAD, AND ATRIAL FIBR ILLATION. TODAY, SHE IS ALERT AND ORIENTED, LYING IN BED ON MORNING ROUNDS. SHE COMPLAINS OF WEAKNESS AND PERSISTENT PAIN TO THE LEFT WRIST AND LEFT ANKLE. PAIN TO THE WRIST IS WORSE THAN PAIN TO THE ANKLE. SHE REPORTS SLIGHT IMPROVEMENT IN PAIN AFTER SHE RECEIVES THE TORADOL. SHE RATES HER PAIN A 5/10 THIS MORNING. PAIN IS DESCRIBED DULL, THROBBING, AND INTERMITTENT. PAIN IS WORSE WITH MOVEMENT OR ACTIVITY. SHE WAS HYPOTENSIVE ON ADMISSION, BUT BLOOD PRESSURE HAS IMPROVED. ON EXAMINATION, HEART IS REGULAR IN RATE AND RHYTHM. BILATERAL LUNGS ARE NOTED WITH DIMINISHED LUNG SOUNDS THROUGHOUT. ABDOMEN IS ROUND, SOFT, AND NON-TENDER WITH NORMAL BOWEL SOUNDS NOTED IN ALL QUADRANTS. TENDERNESS NOTED WITH PALPATION TO THE LEFT WRIST AND THE LEFT ANKLE. ERYTHEMA, SWELLING, AND WARMTH NOTED TO THE LEFT WRIST. HER VITALS THIS MORNING ARE: 97.7-70-21-100%-125/56. LABS WERE OBTAINED. WBC 5.1, RBC 3.93, HGB 10.2, HCT 31.2, PLT COUNT 99, SODIUM 137, POTASSIUM 3.5, CHLORIDE 103, CARBON DIOXIDE 24. 8, BUN 31, CREATININE 1.54, GLUCOSE 100, CALCIUM 8.0, TOTAL BILI 0.30, AST 40, ALT 34, ALK PHOS 69, CRP 149.70, BNP 1200, TOTAL PROTEIN 6.0, ALBUMIN 2.3. RHEUMATOID PANEL IS PENDING. BLOOD AND URINE CULTURES ARE PENDING. PRELIMINARY BLOOD CULTURES ARE POSITIVE FOR GROWTH OF GRAM POSITIVE COCCI. SHE IS CURRENTLY RECEIVING NORMAL SALINE AT 50 ML/HR, ROCEPHIN 1G IV HS, OTBS ACHS, HUMULIN R SLIDING SCALE, ZOFRAN 4MG IV Q6H PRN, TORADOL 30MG IV Q12H, VOLTAREN GET TID. WE RESUMED HER HOME MEDICATIONS OF ELIQUIS, LIPITOR, FARXIGA, LANTUS, SYNTHROID, ENTRESTO, AND RENEXA. HER LASIX HAS BEEN HELD DUE TO HYPOTENSION AND DEHYDRATION. WE WILL HAVE PHYSICAL THERAPY EVALUATE AND WORK WITH HER TODAY. WE WILL OBTAIN A MRI OF THE LEFT WRIST TO RULE OUT SEPTIC JOINT. OTHERWISE, WE WILL CONTINUE WITH CURRENT PLAN OF CARE. WE WILL FOLLOW-UP WITH AM LABS AND CHEST XRAY AND CONTINUE TO MONITOR. TIME SPENT ON CLINICAL ASSESSMENT, REVIWING LABS AND IMAGING, DECISION MAKING, AND DOCUMENTATION GREATER THAN 45 MINUTES. - Past Medical Family Social History Past Med/Fam/Surg Hx: No changes since H&P Allergies: Allergies No Known Allergies Allergy (Verified 10/02/22 02:20) - Review of Systems ROS: No change since H&P - Vital Signs and I&O's Vital Signs: Temperature 98.2 F Pulse Rate [Apical] 60 Pulse Rate 68 Respiratory Rate 31 Blood Pressure [Right Arm] 121/70 Blood Pressure 139/83 O2 Sat by Pulse Oximetry 94 Intake and Output: Intake & Output 10/03/22 10/04/22 10/05/22 10/06/22 11:59 11:59 11:59 11:59 Intake Total 3511 / 3511 2774 / 2774 3304 / 3304 1220 / 1220 Output Total 1800 / 1800 Balance 1711 / 1711 2774 / 2774 3304 / 3304 1220 / 1220 - Physical Exam Oriented: Person Eyes: Normal Ear: Normal Nose: Normal Throat: Normal Respiratory: Generalized, Diminished Cardiovascular: Normal : Normal Auscultation: Bowel Sounds: Normal Palpation: Normal Tenderness: Normal Skin: Decreased Turgur, Red (LEFT WRIST ), Tender, Hot Musculoskeletal: Left, Wrist, Ankle, Swelling, Tender Psychiatric: Normal Mood Description: Calm Affect: Normal Speech Pattern: Clear, Appropriate - Laboratory and Diagnostics Result Diagrams: 10/05/22 04:20 10/05/22 04:20 Labs: 10/01/22 19:59 Blood Blood Culture - Final Strep Agalactiae - (Group B) 10/01/22 19:45 Blood Blood Culture - Final Strep Agalactiae - (Group B) 10/03/22 18:35 Urine,Clean Catch Urine Culture - Preliminary 10/01/22 18:59 Urine,Clean Catch Urine Culture - Final Laboratory WBC 5.7 X10^3/uL (3.6-10.0) 10/05/22 04:20 RBC 3.87 X10^6/uL (3.5-5.4) 10/05/22 04:20 Hgb 10.2 g/dL (12.0-16.0) L 10/05/22 04:20 Hct 30.6 % (36.0-47.0) L 10/05/22 04:20 MCV 79.0 fL (80.0-100.0) L 10/05/22 04:20 MCH 26.4 pg (27.0-34.0) L 10/05/22 04:20 MCHC 33.4 g/dL (33.0-35.0) 10/05/22 04:20 RDW 17.4 % (11.6-16.5) H 10/05/22 04:20 Plt Count 120 X10^3/uL (150.0-450.0) L 10/05/22 04:20 Plt Count Comment Decreased (ADEQUATE) A 10/03/22 04:20 MPV 9.8 fL (7.4-11.0) 10/05/22 04:20 Neut % (Auto) 72.2 % (42.0-75.0) 10/05/22 04:20 Lymph % (Auto) 15.3 % (21.0-51.0) L 10/05/22 04:20 [place] % (Auto) 9.9 % (0.0-13.0) 10/05/22 04:20 Eos % (Auto) 2.4 % (0.9-2.9) 10/05/22 04:20 Baso % (Auto) 0.2 % (0.2-1.0) 10/05/22 04:20 Neut # (Auto) 4.1 x10^3/uL (2.2-4.8) 10/05/22 04:20 Lymph # (Auto) 0.9 X10^3/uL (1.3-2.9) L 10/05/22 04:20 [place] # (Auto) 0.6 x10^3/uL (0.3-0.8) 10/05/22 04:20 Eos # (Auto) 0.1 x10^3/uL (0.0-0.2) 10/05/22 04:20 Baso # (Auto) 0.0 X10^3/uL (0.0-0.1) 10/05/22 04:20 Absolute Nucleated RBC 0.0 /100WBC 10/05/22 04:20 Total Counted 100 10/03/22 04:20 Neutrophils % (Manual) 79 % (39-76) H 10/03/22 04:20 Lymphocytes % (Manual) 10 % (13-43) L 10/03/22 04:20 Monocytes % (Manual) 9 % (4-9) 10/03/22 04:20 Eosinophils % (Manual) 2 % (0-6) 10/03/22 04:20 Plt Morphology Comment Normal (NORMAL) 10/03/22 04:20 RBC Morphology Abnormal (NORMAL) A 10/03/22 04:20 Hypochromasia Slight A 10/03/22 04:20 Anisocytosis Slight A 10/03/22 04:20 Microcytosis Slight A 10/03/22 04:20 ESR 61 MM/HOUR (0-20) H 10/02/22 11:38 Sodium 138 mmol/L (136-145) 10/05/22 04:20 Corrected Sodium TNP 10/05/22 04:20 Potassium 3.7 mmol/L (3.5-5.1) 10/05/22 04:20 Chloride 105 mmol/L (98-107) 10/05/22 04:20 Carbon Dioxide 24.6 mmol/L (21-32) 10/05/22 04:20 BUN 24 mg/dL (7-18) H 10/05/22 04:20 Creatinine 1.27 mg/dL (0.55-1.02) H 10/05/22 04:20 Est GFR (MDRD) Af Amer 52 (>60) L 10/05/22 04:20 Est GFR (MDRD) Non-Af 43 (>60) L 10/05/22 04:20 Glucose 105 mg/dL (65-99) H 10/05/22 04:20 POC Glucose (mg/dL) 218 mg/dL (65-99) H 10/05/22 20:27 Lactic Acid 1.3 mmol/L (0.4-2.0) 10/01/22 19:59 Uric Acid 5.7 mg/dL (2.6-6.0) 10/02/22 11:38 Calcium 7.9 mg/dL (8.5-10.1) L 10/05/22 04:20 Corrected Calcium 9.4 mg/dL (8.5-10.1) 10/05/22 04:20 Magnesium 2.7 mg/dL (2.0-2.9) 10/03/22 04:20 Total Bilirubin 0.40 mg/dL (0.2-1.0) 10/05/22 04:20 AST 47 Units/L (15-37) H 10/05/22 04:20 ALT 43 Units/L (12-78) 10/05/22 04:20 Alkaline Phosphatase 73 Units/L (46-116) 10/05/22 04:20 Creatine Kinase 180 Units/L (26-192) 10/02/22 11:38 Troponin I High Sens 62.1 ng/L (4.0-60.0) H* 10/01/22 23:15 C-Reactive Protein 107.60 mg/L (0-3.0) H 10/05/22 04:20 B-Natriuretic Peptide 1200 pg/mL (0-79) H* 10/04/22 04:00 Total Protein 5.9 g/dL (6.4-8.2) L 10/05/22 04:20 Albumin 2.1 g/dL (3.4-5.0) L 10/05/22 04:20 Globulin 3.8 g/dL (2.5-4.5) 10/05/22 04:20 Albumin/Globulin Ratio 0.6 Ratio (1.1-2.1) L 10/05/22 04:20 Specimen Type Clean catch urine 10/03/22 18:35 Urine Color Pale yellow (YELLOW) 10/03/22 18:35 Urine Appearance Clear (CLEAR) 10/03/22 18:35 Urine pH 6.0 (5.0 - 8.0) 10/03/22 18:35 Ur Specific [place] 1.020 (1.000-1.030) 10/03/22 18:35 Urine Protein 1+ (NEGATIVE) 10/03/22 18:35 Urine Glucose (UA) 4+ (NEGATIVE) 10/03/22 18:35 Urine Ketones Negative (NEGATIVE) 10/03/22 18:35 Urine Blood 3+ (NEGATIVE) 10/03/22 18:35 Urine Nitrite Negative (NEGATIVE) 10/03/22 18:35 Urine Bilirubin Negative (NEGATIVE) 10/03/22 18:35 Urine Urobilinogen Normal (NORMAL) 10/03/22 18:35 Ur Leukocyte Esterase Negative (NEGATIVE) 10/03/22 18:35 Urine RBC 0-2 /HPF (0-3) 10/03/22 18:35 Urine WBC 0-2 /HPF (0-5) 10/03/22 18:35 Ur Squamous Epith Cells Rare /HPF (NEGATIVE) 10/03/22 18:35 Amorphous Sediment Trace /HPF (NEGATIVE) 10/03/22 18:35 Urine Bacteria Trace /HPF (NEGATIVE) 10/03/22 18:35 Urine Yeast Many /HPF (NEGATIVE) 10/03/22 18:35 Ur Culture Indicated? No/not indicated 10/03/22 18:35 Urine Opiates Screen Negative (NEG=<300) 10/01/22 18:59 Urine Methadone Screen Negative (NEG=<300) 10/01/22 18:59 Ur Barbiturates Screen Negative (NEG=<200) 10/01/22 18:59 Ur Phencyclidine Scrn Negative (NEG=<25) 10/01/22 18:59 Ur Amphetamines Screen Negative (NEG=<1000) 10/01/22 18:59 U Benzodiazepines Scrn Negative (NEG=<200) 10/01/22 18:59 Urine Cocaine Screen Negative (NEG=<300) 10/01/22 18:59 U Marijuana (THC) Screen Negative (NEG=<50) 10/01/22 18:59 Acetone, Semi-Quant Negative (NEGATIVE) 10/01/22 21:30 Rheumatoid Factor Negative (NEGATIVE) 10/02/22 04:48 SARS-CoV-2 (PCR) Negative (NEGATIVE) 10/01/22 19:17 Influenza Type A (PCR) Negative (NEGATIVE) 10/01/22 19:17 Influenza Type B (PCR) Negative (NEGATIVE) 10/01/22 19:17 RSV (PCR) Negative (NEGATIVE) 10/01/22 19:17 S. pyogenes (TEM-PCR) Not detected (NOT DETECT) 10/01/22 19:17 - Plan (1) Sepsis Status: Acute Qualifiers: Sepsis type: sepsis due to unspecified organism Sepsis acute organ dysfunction status: unspecified Qualified Code(s): A41.9 - Sepsis, unspecified organism Plan: PHYSICAL THERAPY, REPEAT LABS, URINE AND BLOOD CULTURES PENDING. NORMAL SALINE AT 60 ML/HR, ROCEPHIN 1G IV HS, OTBS ACHS, HUMULIN R SLIDING SCALE, ZOFRAN 4MG IV Q6H PRN, TORADOL 30MG IV Q12H, VOLTAREN GET TID. WE WILL RESUME HER HOME MEDICATIONS OF ELIQUIS, LIPITOR, FARXIGA, LANTUS, SYNTHROID, ENTRESTO, AND RENEXA. (2) UTI (urinary tract infection) Status: Acute Qualifiers: Urinary tract infection type: site unspecified Hematuria presence: with hematuria Qualified Code(s): N39.0 - Urinary tract infection, site not specified; R31.9 - Hematuria, unspecified (3) Dehydration Status: Acute (4) Altered mental state Status: Acute Qualifiers: Altered mental status type: transient alteration of awareness Qualified Code(s): R40.4 - Transient alteration of awareness (5) Intractable pain Status: Acute (6) Generalized weakness Status: Acute (7) Congestive heart failure Status: Chronic Qualifiers: Heart failure chronicity: chronic (8) Left wrist pain Status: Acute (9) Diabetes mellitus Status: Chronic Qualifiers: Diabetes mellitus type: type 2 Diabetes mellitus intermediate frame tender insulin use: unspecified intermediate frame tender insulin use status Diabetes mellitus complication status: without complication Qualified Code(s): E11.9 - Type 2 diabetes mellitus without complications (10) Coronary artery disease Status: Chronic Qualifiers: Coronary Disease-Associated Artery/Lesion type: [place] artery [place] vs. transplanted heart: [place] heart Associated angina: angina presence unspecified Qualified Code(s): I25.10 - Atherosclerotic heart disease of [place] coronary artery without angina pectoris (11) Atrial fibrillation Status: Chronic Qualifiers: Atrial fibrillation type: paroxysmal Qualified Code(s): I48.0 - Paroxysmal atrial fibrillation
[2022-10-06] MEDS: NS 1,000 ML IV 1,000 ML IV SCH ×4 (00:46→22:28)
[2022-10-06 05:18] LABS: BASOPHILS % (AUTO) 0.1 % (0.2-1.0); EOSINOPHILS # (AUTO) 0.2 x10^3/uL (0.0-0.2); EOSINOPHILS % (AUTO) 3.9 % (0.9-2.9); HEMATOCRIT 32.7 % (36.0-47.0); HEMOGLOBIN 10.8 g/dL (12.0-16.0); LYMPHOCYTES # (AUTO) 0.8 X10^3/uL (1.3-2.9); LYMPHOCYTES % (AUTO) 15.3 % (21.0-51.0); MEAN CORPUSCULAR VOLUME 78.8 fL (80.0-100.0); MEAN PLATELET VOLUME 8.7 fL (7.4-11.0); MONOCYTES # (AUTO) 0.5 x10^3/uL (0.3-0.8); MONOCYTES % (AUTO) 9.8 % (0.0-13.0); NEUTROPHILS # (AUTO) 3.8 x10^3/uL (2.2-4.8); NEUTROPHILS % (AUTO) 70.9 % (42.0-75.0); RED BLOOD COUNT 4.16 X10^6/uL (3.5-5.4); RED CELL DISTRIBUTION WIDTH 17.2 % (11.6-16.5); WHITE BLOOD COUNT 5.4 X10^3/uL (3.6-10.0)
[2022-10-06 05:32] LABS: ALANINE AMINOTRANSFERASE 55 Units/L (12-78); ALBUMIN 2.2 g/dL (3.4-5.0); ALKALINE PHOSPHATASE 88 Units/L (46-116); ASPARTATE AMINO TRANSFERASE 52 Units/L (15-37); BLOOD UREA NITROGEN 20 mg/dL (7-18); CALCIUM 8.2 mg/dL (8.5-10.1); CARBON DIOXIDE 27.2 mmol/L (21-32); CHLORIDE 105 mmol/L (98-107); COR CA(FOR HYPOALB) 9.6 mg/dL (8.5-10.1); CREATININE 1.35 mg/dL (0.55-1.02); SODIUM 138 mmol/L (136-145); TOTAL PROTEIN 6.3 g/dL (6.4-8.2); eGFR NON BLACK RACES 40 (>60)
[2022-10-06] MEDS: SYNTHROID 125 mcg TAB PO SCH (05:52)
[2022-10-06] MEDS: ZOSYN VIAL 3.375 GRAMS 3.375 G in NS 100 ML IV 100 ML IV SCH ×3 (05:52→22:02)
[2022-10-06] MEDS: VOLTAREN 1 % GEL MULTI DOSE TUBE TOP SCH ×3 (05:52→22:09)
[2022-10-06 06:45] LABS: ANTI-NUCLEAR ANTIBODY TEST None Detected (None Detected)
[2022-10-06] MEDS: RANEXA PO SCH ×2 (08:26→20:14)
[2022-10-06] MEDS: ELIQUIS PO SCH ×2 (08:27→20:14)
[2022-10-06] MEDS: DIFLUCAN 200 MG IV PREMIX* 200 MG/100 ML BAG IV SCH (08:27)
[2022-10-06] MEDS: ENTRESTO 24/26 MG TABLET PO SCH ×2 (08:27→20:14)
[2022-10-06] MEDS: TORADOL 30 MG VIAL IVP SCH ×2 (11:59→22:31)
[2022-10-06] MEDS: LIPITOR TAB 40 MG PO SCH (20:14)
[2022-10-06] MEDS: LANTUS SC SCH (20:21)
[2022-10-06] MEDS: SNACK - Diabetic Appropriate PO SCH (20:35)
[2022-10-07 05:17] LABS: BASOPHILS % (AUTO) 0.2 % (0.2-1.0); EOSINOPHILS # (AUTO) 0.2 x10^3/uL (0.0-0.2); HEMATOCRIT 30.6 % (36.0-47.0); HEMOGLOBIN 10.1 g/dL (12.0-16.0); LYMPHOCYTES # (AUTO) 0.9 X10^3/uL (1.3-2.9); MEAN CORPUSCULAR HEMOGLOBIN 26.1 pg (27.0-34.0); MEAN CORPUSCULAR HGB CONC 32.9 g/dL (33.0-35.0); MEAN CORPUSCULAR VOLUME 79.3 fL (80.0-100.0); MEAN PLATELET VOLUME 8.6 fL (7.4-11.0); MONOCYTES # (AUTO) 0.5 x10^3/uL (0.3-0.8); MONOCYTES % (AUTO) 8.8 % (0.0-13.0); RED BLOOD COUNT 3.86 X10^6/uL (3.5-5.4); RED CELL DISTRIBUTION WIDTH 17.4 % (11.6-16.5); WHITE BLOOD COUNT 5.7 X10^3/uL (3.6-10.0)
[2022-10-07] MEDS: ZOSYN VIAL 3.375 GRAMS 3.375 G in NS 100 ML IV 100 ML IV SCH ×3 (05:17→21:23)
[2022-10-07] MEDS: VOLTAREN 1 % GEL MULTI DOSE TUBE TOP SCH ×3 (05:26→21:23)
[2022-10-07 05:31] LABS: ALANINE AMINOTRANSFERASE 46 Units/L (12-78); ALBUMIN 2.1 g/dL (3.4-5.0); ALKALINE PHOSPHATASE 80 Units/L (46-116); ASPARTATE AMINO TRANSFERASE 38 Units/L (15-37); BLOOD UREA NITROGEN 17 mg/dL (7-18); CALCIUM 8.2 mg/dL (8.5-10.1); CARBON DIOXIDE 26.8 mmol/L (21-32); CHLORIDE 107 mmol/L (98-107); COR CA(FOR HYPOALB) 9.7 mg/dL (8.5-10.1); CREATININE 1.37 mg/dL (0.55-1.02); SODIUM 139 mmol/L (136-145); TOTAL PROTEIN 5.9 g/dL (6.4-8.2); eGFR NON BLACK RACES 40 (>60)
[2022-10-07] MEDS: SYNTHROID 125 mcg TAB PO SCH (05:50)
[2022-10-07] MEDS: ENTRESTO 24/26 MG TABLET PO SCH ×2 (08:31→21:22)
[2022-10-07] MEDS: ELIQUIS PO SCH ×2 (08:31→21:22)
[2022-10-07] MEDS: RANEXA PO SCH ×2 (08:31→21:22)
[2022-10-07] MEDS: DIFLUCAN 200 MG IV PREMIX* 200 MG/100 ML BAG IV SCH (08:32)
[2022-10-07] MEDS ORDERED: NS 100 ML IV 100 ML ONE (13:34)
[2022-10-07] MEDS: NS 1,000 ML IV 1,000 ML IV SCH (14:09)
[2022-10-07] MEDS: SNACK - Diabetic Appropriate PO SCH (20:22)
[2022-10-07] MEDS: LIPITOR TAB 40 MG PO SCH (21:22)
[2022-10-07] MEDS: LANTUS SC SCH (21:25)
[2022-10-08 05:12] LABS: BASOPHILS % (AUTO) 0.3 % (0.2-1.0); EOSINOPHILS # (AUTO) 0.3 x10^3/uL (0.0-0.2); EOSINOPHILS % (AUTO) 4.4 % (0.9-2.9); HEMATOCRIT 30.9 % (36.0-47.0); HEMOGLOBIN 10.2 g/dL (12.0-16.0); LYMPHOCYTES # (AUTO) 0.7 X10^3/uL (1.3-2.9); LYMPHOCYTES % (AUTO) 11.6 % (21.0-51.0); MEAN CORPUSCULAR HGB CONC 32.9 g/dL (33.0-35.0); MEAN PLATELET VOLUME 8.5 fL (7.4-11.0); MONOCYTES # (AUTO) 0.5 x10^3/uL (0.3-0.8); MONOCYTES % (AUTO) 7.9 % (0.0-13.0); NEUTROPHILS # (AUTO) 4.8 x10^3/uL (2.2-4.8); NEUTROPHILS % (AUTO) 75.8 % (42.0-75.0); RED BLOOD COUNT 3.92 X10^6/uL (3.5-5.4); RED CELL DISTRIBUTION WIDTH 17.7 % (11.6-16.5); WHITE BLOOD COUNT 6.3 X10^3/uL (3.6-10.0)
[2022-10-08 05:27] LABS: ALANINE AMINOTRANSFERASE 45 Units/L (12-78); ALBUMIN 2.2 g/dL (3.4-5.0); ALKALINE PHOSPHATASE 81 Units/L (46-116); ASPARTATE AMINO TRANSFERASE 38 Units/L (15-37); BLOOD UREA NITROGEN 14 mg/dL (7-18); CALCIUM 8.3 mg/dL (8.5-10.1); CARBON DIOXIDE 24.8 mmol/L (21-32); CHLORIDE 107 mmol/L (98-107); COR CA(FOR HYPOALB) 9.7 mg/dL (8.5-10.1); CREATININE 1.27 mg/dL (0.55-1.02); SODIUM 138 mmol/L (136-145); TOTAL PROTEIN 6.2 g/dL (6.4-8.2); eGFR NON BLACK RACES 43 (>60)
[2022-10-08] MEDS: ZOSYN VIAL 3.375 GRAMS 3.375 G in NS 100 ML IV 100 ML IV SCH (05:43)
[2022-10-08] MEDS: SYNTHROID 125 mcg TAB PO SCH (05:44)
[2022-10-08] MEDS: NS 1,000 ML IV 1,000 ML IV SCH (07:39)
[2022-10-08 08:35] VITALS: BP 171/70
[2022-10-08] MEDS ORDERED: DIFLUCAN 100 MG IV (MIX by PHARMACY)* 100 MG/50 ML BAG IV SCH (09:00)
[2022-10-08] MEDS: RANEXA PO SCH (09:20)
[2022-10-08] MEDS: ENTRESTO 24/26 MG TABLET PO SCH (09:20)
[2022-10-08] MEDS: ELIQUIS PO SCH (09:21)
--- NOTE | 2022-10-08 12:14 | PCM.PROG ---
Progress Note - Progress Note for Day of Date of Exam: 10/05/22 - Subjective Subjective: IS A 77 YEAR OLD PATIENT OF OURS. SHE IS CURRENTLY OBSERVATION STATUS. SHE IS CURRENTLY BEING TREATED FOR SEPSIS, URINARY TRACT INFECTION, DEHYDRATION, ALTERED MENTAL STATUS, INTRACTABLE PAIN, AND GENERALIZED WEAKNESS. ADDITIONALLY, SHE HAS A PMH OF CHF, DM II, CAD, AND ATRIAL FIBR ILLATION. TODAY, SHE IS ALERT AND ORIENTED, LYING IN BED ON MORNING ROUNDS. SHE COMPLAINS OF WEAKNESS AND PERSISTENT PAIN TO THE LEFT WRIST AND LEFT ANKLE. PAIN TO THE WRIST IS WORSE THAN PAIN TO THE ANKLE. SHE REPORTS SLIGHT IMPROVEMENT IN PAIN AFTER SHE RECEIVES THE TORADOL. SHE RATES HER PAIN A 5/10 THIS MORNING. PAIN IS DESCRIBED DULL, THROBBING, AND INTERMITTENT. PAIN IS WORSE WITH MOVEMENT OR ACTIVITY. SHE IS HYPOTENSIVE THIS MORNING. ON EXAMINATION, HEART IS REGULAR IN RATE AND RHYTHM. BILATERAL LUNGS ARE NOTED WITH DIMINISHED LUNG SOUNDS THROUGHOUT. ABDOMEN IS ROUND, SOFT, AND NON-TENDER WITH NORMAL BOWEL SOUNDS NOTED IN ALL QUADRANTS. TENDERNESS NOTED WITH PALPATION TO THE LEFT WRIST AND THE LEFT ANKLE. ERYTHEMA, SWELLING, AND WARMTH NOTED TO THE LEFT WRIST. HER VITALS THIS MORNING ARE: 98.7-69-28-100%-86/56. LABS WERE OBTAINED. WBC 5.7, RBC 3.87, HGB 10.2, HCT 30.6, PLT COUNT 120, SODIUM 138, POTASSIUM 3.7, CHLORIDE 105, BUN 24, CREATININE 1.27, GLUCOSE 105, CALCIUM 7.9, AST 47, ALT 43, ALK PHOS 73, CRP 107.60, TOTAL PROTEIN 5.9, ALBUMIN 2.1. RHEUMATOID PANEL IS PENDING. BLOOD CULTURES ARE POSITIVE FOR GROWTH OF GROUP B STREP. URINE CULTURE IS POSITIVE FOR GROWTH OF DANIEL ALBUCANS. SHE IS CURRENTLY RECEIVING NORMAL SALINE AT 50 ML/HR, ROCEPHIN 1G IV HS, OTBS ACHS, HUMULIN R SLIDING SCALE, ZOFRAN 4MG IV Q6H PRN, TORADOL 30MG IV Q12H, VOLTAREN GET TID. WE RESUMED HER HOME MEDICATIONS OF ELIQUIS, LIPITOR, FARXIGA, LANTUS, SYNTHROID, ENTRESTO, AND RENEXA. HER LASIX HAS BEEN HELD DUE TO HYPOTENSION AND DEHYDRATION. WE WILL HAVE PHYSICAL THERAPY EVALUATE AND WORK WITH HER TODAY. WE WILL OBTAIN A MRI OF THE LEFT WRIST TO RULE OUT SEPTIC JOINT. WE WILL DISCONTINUE THE ROCEPHIN AND START ZOSYN 3.375G IV TID. WE WILL ALSO ADD DIFLUCAN 100MG IV DAILY FOR DANIEL ALB ICANS. OTHERWISE, WE WILL CONTINUE WITH CURRENT PLAN OF CARE. WE WILL FOLLOW-UP WITH AM LABS AND CONTINUE TO MONITOR. TIME SPENT ON CLINICAL ASSESSMENT, REVIWING LABS AND IMAGING, DECISION MAKING, AND DOCUMENTATION GREATER THAN 45 MINUTES. - Past Medical Family Social History Past Med/Fam/Surg Hx: No changes since H&P Allergies: Allergies No Known Allergies Allergy (Verified 10/02/22 02:20) - Review of Systems ROS: No change since H&P - Vital Signs and I&O's Vital Signs: Temperature 97.7 F Pulse Rate [Apical] 60 Pulse Rate 78 Respiratory Rate 23 Blood Pressure [Right Arm] 121/70 Blood Pressure 171/70 O2 Sat by Pulse Oximetry 94 Intake and Output: Intake & Output 10/06/22 10/07/22 10/08/22 10/09/22 11:59 11:59 11:59 11:59 Intake Total 3420 / 3420 3826 / 3826 2683 / 2683 Balance 3420 / 3420 3826 / 3826 2683 / 2683 - Physical Exam Oriented: Person Eyes: Normal Ear: Normal Nose: Normal Throat: Normal Respiratory: Generalized, Diminished Cardiovascular: Normal : Normal Auscultation: Bowel Sounds: Normal Palpation: Normal Tenderness: Normal Skin: Decreased Turgur, Red (LEFT WRIST ), Tender, Hot Musculoskeletal: Left, Wrist, Ankle, Swelling, Tender Psychiatric: Normal Mood Description: Calm Affect: Normal Speech Pattern: Clear, Appropriate - Laboratory and Diagnostics Result Diagrams: 10/08/22 04:30 10/08/22 04:30 Labs: 10/03/22 18:35 Urine,Clean Catch Urine Culture - Preliminary [place] 10/01/22 19:59 Blood Blood Culture - Final Strep Agalactiae - (Group B) 10/01/22 19:45 Blood Blood Culture - Final Strep Agalactiae - (Group B) 10/01/22 18:59 Urine,Clean Catch Urine Culture - Final Laboratory WBC 6.3 X10^3/uL (3.6-10.0) 10/08/22 04:30 RBC 3.92 X10^6/uL (3.5-5.4) 10/08/22 04:30 Hgb 10.2 g/dL (12.0-16.0) L 10/08/22 04:30 Hct 30.9 % (36.0-47.0) L 10/08/22 04:30 MCV 79.0 fL (80.0-100.0) L 10/08/22 04:30 MCH 26.0 pg (27.0-34.0) L 10/08/22 04:30 MCHC 32.9 g/dL (33.0-35.0) L 10/08/22 04:30 RDW 17.7 % (11.6-16.5) H 10/08/22 04:30 Plt Count 220 X10^3/uL (150.0-450.0) 10/08/22 04:30 Plt Count Comment Decreased (ADEQUATE) A 10/03/22 04:20 MPV 8.5 fL (7.4-11.0) 10/08/22 04:30 Neut % (Auto) 75.8 % (42.0-75.0) H 10/08/22 04:30 Lymph % (Auto) 11.6 % (21.0-51.0) L 10/08/22 04:30 [place] % (Auto) 7.9 % (0.0-13.0) 10/08/22 04:30 Eos % (Auto) 4.4 % (0.9-2.9) H 10/08/22 04:30 Baso % (Auto) 0.3 % (0.2-1.0) 10/08/22 04:30 Neut # (Auto) 4.8 x10^3/uL (2.2-4.8) 10/08/22 04:30 Lymph # (Auto) 0.7 X10^3/uL (1.3-2.9) L 10/08/22 04:30 [place] # (Auto) 0.5 x10^3/uL (0.3-0.8) 10/08/22 04:30 Eos # (Auto) 0.3 x10^3/uL (0.0-0.2) H 10/08/22 04:30 Baso # (Auto) 0.0 X10^3/uL (0.0-0.1) 10/08/22 04:30 Absolute Nucleated RBC 0.0 /100WBC 10/08/22 04:30 Total Counted 100 10/03/22 04:20 Neutrophils % (Manual) 79 % (39-76) H 10/03/22 04:20 Lymphocytes % (Manual) 10 % (13-43) L 10/03/22 04:20 Monocytes % (Manual) 9 % (4-9) 10/03/22 04:20 Eosinophils % (Manual) 2 % (0-6) 10/03/22 04:20 Plt Morphology Comment Normal (NORMAL) 10/03/22 04:20 RBC Morphology Abnormal (NORMAL) A 10/03/22 04:20 Hypochromasia Slight A 10/03/22 04:20 Anisocytosis Slight A 10/03/22 04:20 Microcytosis Slight A 10/03/22 04:20 ESR 61 MM/HOUR (0-20) H 10/02/22 11:38 Sodium 138 mmol/L (136-145) 10/08/22 04:30 Corrected Sodium TNP 10/08/22 04:30 Potassium 3.8 mmol/L (3.5-5.1) 10/08/22 04:30 Chloride 107 mmol/L (98-107) 10/08/22 04:30 Carbon Dioxide 24.8 mmol/L (21-32) 10/08/22 04:30 BUN 14 mg/dL (7-18) 10/08/22 04:30 Creatinine 1.27 mg/dL (0.55-1.02) H 10/08/22 04:30 Est GFR (MDRD) Af Amer 52 (>60) L 10/08/22 04:30 Est GFR (MDRD) Non-Af 43 (>60) L 10/08/22 04:30 Glucose 99 mg/dL (65-99) 10/08/22 04:30 POC Glucose (mg/dL) 89 mg/dL (65-99) 10/08/22 05:23 Lactic Acid 0.6 mmol/L (0.4-2.0) 10/06/22 10:56 Uric Acid 5.7 mg/dL (2.6-6.0) 10/02/22 11:38 Calcium 8.3 mg/dL (8.5-10.1) L 10/08/22 04:30 Corrected Calcium 9.7 mg/dL (8.5-10.1) 10/08/22 04:30 Magnesium 2.0 mg/dL (2.0-2.9) 10/06/22 04:23 Total Bilirubin 0.40 mg/dL (0.2-1.0) 10/08/22 04:30 AST 38 Units/L (15-37) H 10/08/22 04:30 ALT 45 Units/L (12-78) 10/08/22 04:30 Alkaline Phosphatase 81 Units/L (46-116) 10/08/22 04:30 Creatine Kinase 180 Units/L (26-192) 10/02/22 11:38 Troponin I High Sens 62.1 ng/L (4.0-60.0) H* 10/01/22 23:15 C-Reactive Protein 62.50 mg/L (0-3.0) H 10/08/22 04:30 B-Natriuretic Peptide 1200 pg/mL (0-79) H* 10/04/22 04:00 Total Protein 6.2 g/dL (6.4-8.2) L 10/08/22 04:30 Albumin 2.2 g/dL (3.4-5.0) L 10/08/22 04:30 Globulin 4.0 g/dL (2.5-4.5) 10/08/22 04:30 Albumin/Globulin Ratio 0.6 Ratio (1.1-2.1) L 10/08/22 04:30 Specimen Type Clean catch urine 10/03/22 18:35 Urine Color Pale yellow (YELLOW) 10/03/22 18:35 Urine Appearance Clear (CLEAR) 10/03/22 18:35 Urine pH 6.0 (5.0 - 8.0) 10/03/22 18:35 Ur Specific [place] 1.020 (1.000-1.030) 10/03/22 18:35 Urine Protein 1+ (NEGATIVE) 10/03/22 18:35 Urine Glucose (UA) 4+ (NEGATIVE) 10/03/22 18:35 Urine Ketones Negative (NEGATIVE) 10/03/22 18:35 Urine Blood 3+ (NEGATIVE) 10/03/22 18:35 Urine Nitrite Negative (NEGATIVE) 10/03/22 18:35 Urine Bilirubin Negative (NEGATIVE) 10/03/22 18:35 Urine Urobilinogen Normal (NORMAL) 10/03/22 18:35 Ur Leukocyte Esterase Negative (NEGATIVE) 10/03/22 18:35 Urine RBC 0-2 /HPF (0-3) 10/03/22 18:35 Urine WBC 0-2 /HPF (0-5) 10/03/22 18:35 Ur Squamous Epith Cells Rare /HPF (NEGATIVE) 10/03/22 18:35 Amorphous Sediment Trace /HPF (NEGATIVE) 10/03/22 18:35 Urine Bacteria Trace /HPF (NEGATIVE) 10/03/22 18:35 Urine Yeast Many /HPF (NEGATIVE) 10/03/22 18:35 Ur Culture Indicated? No/not indicated 10/03/22 18:35 Urine Opiates Screen Negative (NEG=<300) 10/01/22 18:59 Urine Methadone Screen Negative (NEG=<300) 10/01/22 18:59 Ur Barbiturates Screen Negative (NEG=<200) 10/01/22 18:59 Ur Phencyclidine Scrn Negative (NEG=<25) 10/01/22 18:59 Ur Amphetamines Screen Negative (NEG=<1000) 10/01/22 18:59 U Benzodiazepines Scrn Negative (NEG=<200) 10/01/22 18:59 Urine Cocaine Screen Negative (NEG=<300) 10/01/22 18:59 U Marijuana (THC) Screen Negative (NEG=<50) 10/01/22 18:59 Acetone, Semi-Quant Negative (NEGATIVE) 10/01/22 21:30 Rheumatoid Factor Negative (NEGATIVE) 10/02/22 04:48 Cycl Citrul Peptide IgG 13 Units (0-19) 10/02/22 11:38 ELANA Screen None detected (None Detected) 10/02/22 11:38 ELANA Titer TNP 10/02/22 11:38 ELANA Pattern TNP 10/02/22 11:38 SARS-CoV-2 (PCR) Negative (NEGATIVE) 10/01/22 19:17 Influenza Type A (PCR) Negative (NEGATIVE) 10/01/22 19:17 Influenza Type B (PCR) Negative (NEGATIVE) 10/01/22 19:17 RSV (PCR) Negative (NEGATIVE) 10/01/22 19:17 S. pyogenes (TEM-PCR) Not detected (NOT DETECT) 10/01/22 19:17 - Plan (1) Sepsis Status: Acute Qualifiers: Sepsis type: sepsis due to unspecified organism Sepsis acute organ dysfunction status: unspecified Qualified Code(s): A41.9 - Sepsis, unspecified organism Plan: PHYSICAL THERAPY, REPEAT LABS, URINE AND BLOOD CULTURES PENDING. NORMAL SALINE AT 60 ML/HR, ZOSYN 3.375G IV TID, DIFLUCAN 100MG IV DAILY, OTBS ACHS, HUMULIN R SLIDING SCALE, ZOFRAN 4MG IV Q6H PRN, TORADOL 30MG IV Q12H, VOLTAREN GET TID. WE WILL RESUME HER HOME MEDICATIONS OF ELIQUIS, LIPITOR, FARXIGA, LANTUS, SYNTHROID, ENTRESTO, AND RENEXA. (2) UTI (urinary tract infection) Status: Acute Qualifiers: Urinary tract infection type: site unspecified Hematuria presence: with hematuria Qualified Code(s): N39.0 - Urinary tract infection, site not specified; R31.9 - Hematuria, unspecified (3) Dehydration Status: Acute Plan: ADMIT, PHYSICAL THERAPY, REPEAT LABS, URINE AND BLOOD CULTURES PENDING. NORMAL SALINE AT 60 ML/HR, ROCEPHIN 1G IV HS, OTBS ACHS, HUMULIN R SLIDING SCALE, ZOFRAN 4MG IV Q6H PRN, TORADOL 30MG IV Q12H, VOLTAREN GET TID. WE WILL RESUME HER HOME MEDICATIONS OF ELIQUIS, LIPITOR, FARXIGA, LANTUS, SYNTHROID, ENTRESTO, AND [place]. (4) Altered mental state Status: Acute Qualifiers: Altered mental status type: transient alteration of awareness Qualified Code(s): R40.4 - Transient alteration of awareness (5) Intractable pain Status: Acute (6) Generalized weakness Status: Acute (7) Congestive heart failure Status: Chronic Qualifiers: Heart failure chronicity: chronic (8) Left wrist pain Status: Acute (9) Diabetes mellitus Status: Chronic Qualifiers: Diabetes mellitus type: type 2 Diabetes mellitus terminal carman insulin use: unspecified terminal carman insulin use status Diabetes mellitus complication status: without complication Qualified Code(s): E11.9 - Type 2 diabetes mellitus without complications (10) Coronary artery disease Status: Chronic Qualifiers: Coronary Disease-Associated Artery/Lesion type: [place] artery [place] vs. transplanted heart: [place] heart Associated angina: angina presence unspecified Qualified Code(s): I25.10 - Atherosclerotic heart disease of [place] coronary artery without angina pectoris (11) Atrial fibrillation Status: Chronic Qualifiers: Atrial fibrillation type: paroxysmal Qualified Code(s): I48.0 - Paroxysmal atrial fibrillation
== END 2022-10-08 12:25 | disposition home or self-care (01) | DRG 872 ==
LOC: ER 18:28 → U 18:28 → ICU 10-02 03:56
PROVIDERS: ADMIT Family Medicine; ATTEND Internal Medicine
DX: B37.0 Candidal stomatitis; M25.532 Pain in left wrist; Z91.81 History of falling; R53.1 Weakness; Z79.01 Long term (current) use of anticoagulants; M25.572 Pain in left ankle and joints of left foot; A40.1 Sepsis due to streptococcus, group B; I50.9 Heart failure, unspecified; Z66 Do not resuscitate; E11.65 Type 2 diabetes mellitus with hyperglycemia; E05.80 Other thyrotoxicosis without thyrotoxic crisis or storm; N39.0 Urinary tract infection, site not specified; R40.4 Transient alteration of awareness; I95.89 Other hypotension; M00.832 Arthritis due to other bacteria, left wrist; I48.0 Paroxysmal atrial fibrillation; I25.10 Atherosclerotic heart disease of native coronary artery without angina pectoris; R77.8 Other specified abnormalities of plasma proteins; R79.89 Other specified abnormal findings of blood chemistry; Z20.822 Contact with and (suspected) exposure to COVID-19; R26.89 Other abnormalities of gait and mobility; R79.82 Elevated C-reactive protein (CRP); E86.0 Dehydration; R29.810 Facial weakness

== ENCOUNTER 2023-04-22 12:50 | Observation (INO) ==
[2023-04-22 13:09] VITALS: BMI 24.9
--- NOTE | 2023-04-22 13:18 | DR.SOBA ---
HPI Time Seen Time Seen by Provider: 04/22/23 13:14 Primary Care Physician Primary Care Physician: Janet Montgomery Complaints Chief Complaint:: Pt states that around 1000 this AM she started feeling weak, SOB w/ exertion, chills, indigestion w/ lots of belching and pain between her shoulder blades that "comes and goes" COVID-19 Coronavirus risk:travel/contact w/high risk person: No Has patient experienced Coronavirus symptoms: Yes Coronavirus symptoms experienced: Fever and Shortness of Breath Source History Provided: Patient Mode of Arrival Mode of Arrival: Ambulatory Timing Onset of Chief Complaint: 04/22/23 PMH PMH Past Medical History: Yes Past Medical History: CHF, Diabetes, Hyperthyroidism, [place] and Renal Disease Past Medical History Comment: dominick Past Surgical History: Yes Surgical History: Angioplasty/Stents, Hysterectomy, Mastectomy and Ortho Surgery Family History History of Family Medical Conditions: Yes Family Medical History: Diabetes Mellitus and Cancer Social History Does patient currently use any type of tobacco product: No Have you used tobacco products in the last 12 months: No Type of Tobacco Use: None Does any household member use tobacco: No Alcohol Use: None Do you use any recreational Drugs:: No Lives With: Alone Lives Where: Home Travel Risk Coronavirus risk:travel/contact w/high risk person: No Has patient experienced Coronavirus symptoms: Yes Coronavirus symptoms experienced: Fever and Shortness of Breath Infectious screening In the last 2 months have you had wt loss of >10#?: NO Have you had fever, night sweats or hemotysis?: No Have you traveled outside the country in the last 6 months?: No Isolation: Standard PE Vital Signs Vitals: Vital Signs Temperature 100.1 F Pulse Rate 68 Pulse Rate 71 Pulse Rate 75 Pulse Rate 83 Pulse Rate 60 Pulse Rate 77 Pulse Rate 71 Pulse Rate 59 Pulse Rate 57 Pulse Rate 77 Pulse Rate 81 Pulse Rate 75 Pulse Rate 79 Pulse Rate 79 Pulse Rate 80 Pulse Rate 81 Pulse Rate 83 Pulse Rate 83 Pulse Rate 79 Pulse Rate 72 Pulse Rate 82 Pulse Rate 90 Pulse Rate 80 Pulse Rate 88 Pulse Rate 92 Respiratory Rate 27 Respiratory Rate 29 Respiratory Rate 13 Respiratory Rate 21 Respiratory Rate 23 Respiratory Rate 28 Respiratory Rate 25 Respiratory Rate 28 Respiratory Rate 26 Respiratory Rate 15 Respiratory Rate 26 Respiratory Rate 22 Respiratory Rate 21 Respiratory Rate 23 Respiratory Rate 20 Respiratory Rate 17 Respiratory Rate 15 Respiratory Rate 21 Respiratory Rate 26 Respiratory Rate 29 Respiratory Rate 20 Respiratory Rate 24 Respiratory Rate 26 Respiratory Rate 26 Respiratory Rate 18 Blood Pressure 138/63 Blood Pressure 140/89 Blood Pressure 140/113 Blood Pressure 165/60 Blood Pressure 145/67 Blood Pressure 140/65 Blood Pressure 132/63 Blood Pressure 131/61 Blood Pressure 181/93 Blood Pressure 181/86 O2 Sat by Pulse Oximetry 99 O2 Sat by Pulse Oximetry 99 O2 Sat by Pulse Oximetry 96 O2 Sat by Pulse Oximetry 97 O2 Sat by Pulse Oximetry 90 O2 Sat by Pulse Oximetry 97 O2 Sat by Pulse Oximetry 98 O2 Sat by Pulse Oximetry 99 O2 Sat by Pulse Oximetry 97 O2 Sat by Pulse Oximetry 98 O2 Sat by Pulse Oximetry 98 O2 Sat by Pulse Oximetry 96 O2 Sat by Pulse Oximetry 93 O2 Sat by Pulse Oximetry 97 O2 Sat by Pulse Oximetry 97 O2 Sat by Pulse Oximetry 95 O2 Sat by Pulse Oximetry 96 O2 Sat by Pulse Oximetry 96 O2 Sat by Pulse Oximetry 97 O2 Sat by Pulse Oximetry 100 O2 Sat by Pulse Oximetry 97 O2 Sat by Pulse Oximetry 98 O2 Sat by Pulse Oximetry 98 O2 Sat by Pulse Oximetry 100 ROR Labs Reviewed 04/22/23 14:00 04/22/23 14:15 Laboratory: WBC 10.4 X10^3/uL (3.6-10.0) H 04/22/23 14:00 RBC 4.86 X10^6/uL (3.5-5.4) 04/22/23 14:00 Hgb 11.1 g/dL (12.0-16.0) L 04/22/23 14:00 Hct 34.7 % (36.0-47.0) L 04/22/23 14:00 MCV 71.5 fL (80.0-100.0) L 04/22/23 14:00 MCH 22.8 pg (27.0-34.0) L 04/22/23 14:00 MCHC 31.8 g/dL (33.0-35.0) L 04/22/23 14:00 RDW 18.1 % (11.6-16.5) H 04/22/23 14:00 Plt Count 159 X10^3/uL (150.0-450.0) 04/22/23 14:00 Plt Count Comment Adequate (ADEQUATE) 04/22/23 14:00 MPV 8.6 fL (7.4-11.0) 04/22/23 14:00 Neut % (Auto) 88.0 % (42.0-75.0) H 04/22/23 14:00 Lymph % (Auto) 5.2 % (21.0-51.0) L 04/22/23 14:00 [place] % (Auto) 5.9 % (0.0-13.0) 04/22/23 14:00 Eos % (Auto) 0.5 % (0.9-2.9) L 04/22/23 14:00 Baso % (Auto) 0.4 % (0.2-1.0) 04/22/23 14:00 Neut # (Auto) 9.2 x10^3/uL (2.2-4.8) H 04/22/23 14:00 Lymph # (Auto) 0.5 X10^3/uL (1.3-2.9) L 04/22/23 14:00 [place] # (Auto) 0.6 x10^3/uL (0.3-0.8) 04/22/23 14:00 Eos # (Auto) 0.1 x10^3/uL (0.0-0.2) 04/22/23 14:00 Baso # (Auto) 0.0 X10^3/uL (0.0-0.1) 04/22/23 14:00 Absolute Nucleated RBC 0.0 /100WBC 04/22/23 14:00 Plt Morphology Comment Normal (NORMAL) 04/22/23 14:00 RBC Morphology Abnormal (NORMAL) A 04/22/23 14:00 Hypochromasia 1+ A 04/22/23 14:00 Anisocytosis Slight A 04/22/23 14:00 Microcytosis Slight A 04/22/23 14:00 Target Cells Slight A 04/22/23 14:00 Sodium 135 mmol/L (136-145) L 04/22/23 14:15 Corrected Sodium 136 mmol/L (136-145) 04/22/23 14:15 Potassium 3.7 mmol/L (3.5-5.1) 04/22/23 14:15 Chloride 98 mmol/L (98-107) 04/22/23 14:15 Carbon Dioxide 29.9 mmol/L (21-32) 04/22/23 14:15 BUN 26 mg/dL (7-18) H 04/22/23 14:15 Creatinine 1.64 mg/dL (0.55-1.02) H 04/22/23 14:15 Est GFR (MDRD) Af Amer 39 (>60) L 04/22/23 14:15 Est GFR (MDRD) Non-Af 32 (>60) L 04/22/23 14:15 Glucose 141 mg/dL (65-99) H 04/22/23 14:15 Lactic Acid 1.6 mmol/L (0.4-2.0) 04/22/23 14:00 Calcium 9.2 mg/dL (8.5-10.1) 04/22/23 14:15 Corrected Calcium TNP 04/22/23 14:15 Total Bilirubin 1.30 mg/dL (0.2-1.0) H 04/22/23 14:15 AST 43 Units/L (15-37) H 04/22/23 14:15 ALT 40 Units/L (12-78) 04/22/23 14:15 Alkaline Phosphatase 109 Units/L (46-116) 04/22/23 14:15 Creatine Kinase 111 Units/L (26-192) 04/22/23 14:15 Troponin I High Sens 19.9 ng/L (4.0-60.0) 04/22/23 14:15 B-Natriuretic Peptide 821 pg/mL (0-79) H* 04/22/23 14:15 Total Protein 8.6 g/dL (6.4-8.2) H 04/22/23 14:15 Albumin 4.0 g/dL (3.4-5.0) 04/22/23 14:15 Globulin 4.6 g/dL (2.5-4.5) H 04/22/23 14:15 Albumin/Globulin Ratio 0.9 Ratio (1.1-2.1) L 04/22/23 14:15 Specimen Type Clean catch urine 04/22/23 13:17 Urine Color Pale yellow (YELLOW) 04/22/23 13:17 Urine Appearance Clear (CLEAR) 04/22/23 13:17 Urine pH 6.0 (5.0 - 8.0) 04/22/23 13:17 Ur Specific [place] 1.015 (1.000-1.030) 04/22/23 13:17 Urine Protein Negative (NEGATIVE) 04/22/23 13:17 Urine Glucose (UA) 4+ (NEGATIVE) 04/22/23 13:17 Urine Ketones Negative (NEGATIVE) 04/22/23 13:17 Urine Blood Negative (NEGATIVE) 04/22/23 13:17 Urine Nitrite Negative (NEGATIVE) 04/22/23 13:17 Urine Bilirubin Negative (NEGATIVE) 04/22/23 13:17 Urine Urobilinogen Normal (NORMAL) 04/22/23 13:17 Ur Leukocyte Esterase Negative (NEGATIVE) 04/22/23 13:17 Opioid Opioid Risk Tool Age ([place] box if 16-45): No History of Preadolescent Sexual Abuse: No Total: 0 Total Score Risk Category: Low Risk Copyright: Ponce BARROSO predicting aberrant behaviors Discharge Plan Discharge Plan Patient Disposition: 01 HOME, SELF-CARE Condition: Stable Orders to Discharge Patient Discharge Orders: Transfer (Routine); Ordered 04/22/23 Ordered By: SIMON CHOU
[2023-04-22] MEDS ORDERED: TYLENOL 325 MG TAB PO ONE ×2 (13:26→13:32)
--- NOTE | 2023-04-22 13:31 | EKG ---
Test Reason : short of breath Blood Pressure : */* mmHG Vent. Rate : 85 BPM Atrial Rate : * BPM P-R Int : * ms QRS Dur : 82 ms QT Int : 354 ms P-R-T Axes : * 134 -54 degrees QTc Int : 421 ms Accelerated Junctional rhythm Right axis deviation Cannot rule out Anterior infarct , age undetermined Abnormal ECG When compared with ECG of 07-FEB-2023 08:45, Junctional rhythm has replaced Sinus rhythm QRS axis shifted right Nonspecific T wave abnormality, worse in Inferior leads Confirmed by Naif Campbell ([id number]) on 04/23/2023 8:05:39 AM Referred By: Confirmed By: Naif Campbell
[2023-04-22 13:49] LABS: BILIRUBIN,URINE NEGATIVE (NEGATIVE); BLOOD/HEMOGLOBIN,URINE NEGATIVE (NEGATIVE); GLUCOSE, URINE 4+ (NEGATIVE); KETONES,URINE NEGATIVE (NEGATIVE); LEUKOCYTE ESTERASE ,URINE NEGATIVE (NEGATIVE); NITRITES,URINE NEGATIVE (NEGATIVE); PROTEIN,URINE NEGATIVE (NEGATIVE); UROBILINOGEN,URINE NORMAL (NORMAL)
[2023-04-22 13:53] LABS: APPEARANCE,URINE CLEAR (CLEAR); COLOR,URINE PALE YELLOW (YELLOW)
--- NOTE | 2023-04-22 14:25 | RAD ---
HISTORYShortness of breathSTUDYChest AP [id number] ent is status post median sternotomy and CABG. Heart is enlarged. No congestive heart failure is noted. No acute alveolar infiltrates or pleural effusions are identified. Bony thorax is unremarkable.IMPRESSIONCardiomegaly without congestive heart failureNo acute infiltratesElectronically signed by: SCHUYLER OMRAN (Apr 22, 2023 14:24:03)
[2023-04-22 14:32] LABS: EOSINOPHILS # (AUTO) 0.1 x10^3/uL (0.0-0.2); HEMOGLOBIN 11.1 g/dL (12.0-16.0); LYMPHOCYTES # (AUTO) 0.5 X10^3/uL (1.3-2.9); MEAN CORPUSCULAR VOLUME 71.5 fL (80.0-100.0); MONOCYTES # (AUTO) 0.6 x10^3/uL (0.3-0.8)
[2023-04-22 14:42] LABS: BASOPHILS % (AUTO) 0.4 % (0.2-1.0); EOSINOPHILS % (AUTO) 0.5 % (0.9-2.9); HEMATOCRIT 34.7 % (36.0-47.0); LYMPHOCYTES % (AUTO) 5.2 % (21.0-51.0); MEAN CORPUSCULAR HEMOGLOBIN 22.8 pg (27.0-34.0); MEAN CORPUSCULAR HGB CONC 31.8 g/dL (33.0-35.0); MEAN PLATELET VOLUME 8.6 fL (7.4-11.0); MONOCYTES % (AUTO) 5.9 % (0.0-13.0); NEUTROPHILS # (AUTO) 9.2 x10^3/uL (2.2-4.8); PLATELET COUNT 159 X10^3/uL (150.0-450.0); RED BLOOD COUNT 4.86 X10^6/uL (3.5-5.4); RED CELL DISTRIBUTION WIDTH 18.1 % (11.6-16.5); WHITE BLOOD COUNT 10.4 X10^3/uL (3.6-10.0)
[2023-04-22 14:47] LABS: ALANINE AMINOTRANSFERASE 40 Units/L (12-78); ALKALINE PHOSPHATASE 109 Units/L (46-116); ASPARTATE AMINO TRANSFERASE 43 Units/L (15-37); BLOOD UREA NITROGEN 26 mg/dL (7-18); CALCIUM 9.2 mg/dL (8.5-10.1); CARBON DIOXIDE 29.9 mmol/L (21-32); CHLORIDE 98 mmol/L (98-107); COR NA(FOR HYPERGLY) 136 mmol/L (136-145); CREATINE KINASE 111 Units/L (26-192); CREATININE 1.64 mg/dL (0.55-1.02); GLUCOSE 141 mg/dL (65-99); POTASSIUM 3.7 mmol/L (3.5-5.1); SODIUM 135 mmol/L (136-145); TOTAL PROTEIN 8.6 g/dL (6.4-8.2); eGFR NON BLACK RACES 32 (>60)
[2023-04-22 15:24] LABS: HYPOCHROMASIA 1+; PLATELET MORPHOLOGY COMMENT NORMAL (NORMAL)
[2023-04-22 15:25] LABS: ANISOCYTOSIS SLIGHT; MICROCYTOSIS SLIGHT
[2023-04-22 15:26] LABS: TARGET CELLS SLIGHT
[2023-04-22] MEDS ORDERED: LASIX IVP ONE ×2 (15:26→15:29)
--- NOTE | 2023-04-22 19:07 | EKG ---
Test Reason : chest pain Blood Pressure : */* mmHG Vent. Rate : 66 BPM Atrial Rate : 77 BPM P-R Int : * ms QRS Dur : 92 ms QT Int : 502 ms P-R-T Axes : * 73 220 degrees QTc Int : 526 ms Sinus arrhythmia with PACs Prolonged QT Abnormal ECG When compared with ECG of 22-APR-2023 13:05, (Unconfirmed) Sinus rhythm has replaced Junctional rhythm QRS axis shifted left Inverted T waves have replaced nonspecific T wave abnormality in Lateral leads QT has lengthened Confirmed by Naif Campbell ([id number]) on 04/23/2023 8:04:28 AM Referred By: Confirmed By: Naif Campbell
[2023-04-22] MEDS: ROCEPHIN VIAL 1 GRAM 1 G in NS 100 ML IV 100 ML IV SCH (20:57)
--- NOTE | 2023-04-23 01:51 | EKG ---
Test Reason : chest pain Blood Pressure : */* mmHG Vent. Rate : 70 BPM Atrial Rate : 70 BPM P-R Int : 208 ms QRS Dur : 102 ms QT Int : 524 ms P-R-T Axes : 78 88 -4 degrees QTc Int : 565 ms Normal sinus rhythm Nonspecific T wave abnormality Abnormal ECG When compared with ECG of 22-APR-2023 18:57, (Unconfirmed) Sinus rhythm is no longer with 2nd degree AV block ([place] I) Confirmed by Naif Campbell ([id number]) on 04/23/2023 8:01:06 AM Referred By: Confirmed By: Naif Campbell
[2023-04-23 05:39] LABS: BASOPHILS % (AUTO) 0.2 % (0.2-1.0); EOSINOPHILS % (AUTO) 0.3 % (0.9-2.9); HEMOGLOBIN 9.2 g/dL (12.0-16.0); LYMPHOCYTES # (AUTO) 1.1 X10^3/uL (1.3-2.9); LYMPHOCYTES % (AUTO) 12.5 % (21.0-51.0); MEAN CORPUSCULAR HEMOGLOBIN 23.1 pg (27.0-34.0); MEAN CORPUSCULAR HGB CONC 32.9 g/dL (33.0-35.0); MEAN CORPUSCULAR VOLUME 70.1 fL (80.0-100.0); MEAN PLATELET VOLUME 8.7 fL (7.4-11.0); MONOCYTES # (AUTO) 0.8 x10^3/uL (0.3-0.8); MONOCYTES % (AUTO) 9.4 % (0.0-13.0); NEUTROPHILS # (AUTO) 6.9 x10^3/uL (2.2-4.8); NEUTROPHILS % (AUTO) 77.6 % (42.0-75.0); PLATELET COUNT 145 X10^3/uL (150.0-450.0); RED CELL DISTRIBUTION WIDTH 17.8 % (11.6-16.5); WHITE BLOOD COUNT 8.9 X10^3/uL (3.6-10.0)
[2023-04-23 05:53] LABS: ALBUMIN 2.9 g/dL (3.4-5.0); CALCIUM 8.1 mg/dL (8.5-10.1); CARBON DIOXIDE 29.1 mmol/L (21-32); CREATININE 1.6 mg/dL (0.55-1.02); MAGNESIUM 1.5 mg/dL (2.0-2.9); TOTAL PROTEIN 6.7 g/dL (6.4-8.2)
[2023-04-23 06:15] LABS: ANISOCYTOSIS SLIGHT; HYPOCHROMASIA 1+; MICROCYTOSIS 1+; PLATELET MORPHOLOGY COMMENT NORMAL (NORMAL); TARGET CELLS SLIGHT
[2023-04-23] MEDS ORDERED: CONSULT PHARMACY - POTASSIUM & MAGNESIUM XX SCH (07:00)
[2023-04-23] MEDS ORDERED: K-DUR TAB 20 MEQ PO SCH (09:00)
[2023-04-23] MEDS: ROCEPHIN VIAL 1 GRAM 1 G in NS 100 ML IV 100 ML IV SCH (09:12)
[2023-04-23] MEDS: MAG-OX TAB PO SCH ×2 (09:15→11:56)
[2023-04-23] MEDS: ELIQUIS PO SCH ×2 (11:45→20:41)
[2023-04-23] MEDS: LASIX IVP SCH ×2 (12:00→17:15)
--- NOTE | 2023-04-23 12:57 | DR.H&P ---
H&P - History & Physical for Day of: H&P Date: 04/22/23 - Chief Complaint Chief Complaint: WEAKNESS, SOB, CHILLS, INDIGESTION, BELCHING, PAIN BETWEEN SHOULDER BLADES - History of Present Illness History of Present Illness: IS A 77 YEAR OLD PATIENT OF OURS. SHE PRESENTED TO THE ER WITH COMPLAINTS OF WEAKNESS, SHORTNESS OF BREATH WITH EXERTION, CHILLS, INDIGESTION, BELCHING, AND INTERMITTENT PAIN BETWEEN THE SHOULDER BLADES. SHE REPORTS THAT HER SYMPTOMS STARTED AT APPROXIMATELY 10AM. SHE HAS A PMH OF CHF, DM II, HYPERTHYROIDISM, [place], RENAL DISEASE, A.FIB, CARDIAC STENTS, HYSTERECTOMY, MASTECTOMY, AND ORTHO SURGERY. ON ARRIVAL TO THE ER, HER VITALS WERE: 100.1-92-18-100%-181/86. LABS WERE OBTAINED. WBC 10.4, RBC 4.86, HGB 11.1, HCT 34.7, PLT COUNT 159, SODIUM 135, POTASSIUM 3.7, CHLORIDE 98, CARBON DIOXIDE 29.9, BUN 26, CREATININE 1.64, GLUCOSE 141, CALCIUM 9.2, TOTAL BILI 1.30, AST 43, ALT 40, ALK PHOS 109, CREATININE KINASE 111, TROPONIN 19.9, BNP 821, TOTAL PROTEIN 8.6, ALBUMIN 4.0. URINALYSIS WAS OBTAINED AND WAS UN REMARKABLE. COVID, INFLUENZA, AND RSV NEGATIVE. BLOOD CULTURES WERE SET UP. AN EKG WAS OBTAINED AND REVEALED: ACCELERATED JUNCTIONAL RHYTHM WITH HR 85 BPM. CHEST XRAY REVEALED: Cardiomegaly without congestive heart failure. No acute infiltrates. IN THE ER, PATIENT WAS GIVEN TYLENOL 650MG PO X 1 AND LASIX 40MG IV X 1. DECISION WAS MADE TO ADMIT PATIENT TO THE HOSPITAL OBSERVATION STATUS FOR FURTHER EVALUATION AND TREATMENT OF CHF, SHORNTESS OF BREATH, FEVER, CHEST PAIN. SHE WAS STARTED ON ROCEPHIN 1G IV DAILY AND LASIX 40MG IV BID. WE WILL RESUME HER HOME MEDICATIONS OF ELIQUIS, LIPITOR, LANTUS, SYNTHROID, LOPRESSOR, K-DUR, AND RANEXA. WE WILL REPEAT SERIAL CARDIAC ENZYMES AND EKGS. OTHERWISE, WE WILL FOLLOW UP WITH AM LABS AND CONTINUE TO MONITOR. TIME SPENT ON CLINICAL ASSESSMENT, REVIEWING LABS AND IMAGING, DECISION MAKING, AND DOCUMENTATION GREATER THAN 75 MINUTES. - Past Medical History Past Medical History: NH, Diabetes, Renal Disease, Hyperthyroidism, CHF Additional Medical History: A-FIB - Past Surgical History Surgical History: Angioplasty/Stents, Hysterectomy, Mastectomy, Ortho Surgery - Family History Family Medical History: Diabetes Mellitus, Cancer - Social History Does patient currently use any type of tobacco product: No Have you used tobacco products in the last 12 months: No Type of Tobacco Use: None Does any household member use tobacco: No Alcohol Use: None - Review of Systems Constitutional: Fever, Chills, Weakness Eyes: No Symptoms Reported ENT: No Symptoms Reported Respiratory: SOB with Excertion Cardiovascular: Chest Pain, See HPI Gastrointestinal: No Symptoms Reported Genitourinary: No Symptoms Reported Musculoskeletal: No Symptoms Reported Skin: No Symptoms Reported Neurological: Weakness Oriented: Normal Eyes: Normal Ear: Normal Nose: Normal Throat: Normal Respiratory: Diminished Throughout Cardiovascular: Normal : Normal Auscultation: Bowel Sounds: Normal Palpation: Normal Tenderness: Normal Skin: Normal Musculoskeletal: Normal Psychiatric: Normal Mood Description: Calm Affect: Normal Speech Pattern: Clear - Assessment/Plan (1) Congestive heart failure Qualifiers: Heart failure type: unspecified Heart failure chronicity: acute on chronic Qualified Code(s): I50.9 - Heart failure, unspecified Status: Chronic Plan: ADMIT, SERIAL CARDIAC ENZYMES AND EKGS, ROCEPHIN 1G IV DAILY AND LASIX 40MG IV BID. WE WILL RESUME HER HOME MEDICATIONS OF ELIQUIS, LIPITOR, LANTUS, SYNTHROID, LOPRESSOR, K-DUR, AND RANEXA. (2) Acute bronchitis Qualifiers: Bronchitis organism: unspecified organism Qualified Code(s): J20.9 - Acute bronchitis, unspecified Status: Acute (3) Chest pain, rule out acute myocardial infarction Status: Acute (4) Shortness of breath Status: Acute (5) Fever Qualifiers: Fever type: unspecified Qualified Code(s): R50.9 - Fever, unspecified Status: Acute (6) Diabetes mellitus Qualifiers: Diabetes mellitus type: type 2 Diabetes mellitus retirement insulin use: with intermediate card tender use Diabetes mellitus complication status: with hyperglycemia Qualified Code(s): E11.65 - Type 2 diabetes mellitus with hyperglycemia; Z79.4 - prison (current) use of insulin Status: Chronic (7) Coronary artery disease Qualifiers: Coronary Disease-Associated Artery/Lesion type: [place] artery [place] vs. transplanted heart: [place] heart Associated angina: unspecified whether angina present Qualified Code(s): I25.10 - Atherosclerotic heart disease of [place] coronary artery without angina pectoris Status: Chronic (8) Hyperlipidemia Qualifiers: Hyperlipidemia type: mixed hyperlipidemia Qualified Code(s): E78.2 - Mixed hyperlipidemia Status: Chronic (9) Renal disease Status: Chronic - Allergies Allergies/Adverse Reactions: Allergies Allergy/AdvReac Type Severity Reaction Status Date / Time No Known Allergies Allergy Verified 02/07/23 09:00 - Medications Home Medications: Home Medications Medication Instructions Recorded Confirmed apixaban 5 mg tablet (Eliquis) 1 tab PO BID 02/07/23 04/22/23 atorvastatin 40 mg tablet 1 tab PO QHS 02/07/23 04/22/23 bumetanide 1 mg tablet 1 tab PO DAILY 02/07/23 04/22/23 dapagliflozin propanediol 10 mg 1 tab PO QDAY 02/07/23 04/22/23 tablet (Farxiga) dapagliflozin propanediol 10 mg 10 mg PO QDAY 04/22/23 04/22/23 tablet (Farxiga) insulin glargine 100 unit/mL 12 unit subcut QDAY 04/22/23 04/22/23 subcutaneous solution (Lantus U-100 Insulin) levothyroxine 125 mcg tablet 125 mcg PO QDAY 04/22/23 04/22/23 metoprolol tartrate 25 mg tablet 25 mg PO BID 04/22/23 04/22/23 potassium chloride 20 mEq 20 meq PO QDAY 04/22/23 04/22/23 tablet,extended release(part/cryst) ranolazine 500 mg tablet,extended 500 mg PO BID 04/22/23 04/22/23 release,12 hr ranolazine 500 mg tablet,extended 500 mg PO BID 04/22/23 04/22/23 release,12 hr
[2023-04-23] MEDS: FARXIGA PO SCH (14:00)
[2023-04-23] MEDS: LOPRESSOR TAB 25 MG PO SCH ×3 (14:00→20:41)
[2023-04-23] MEDS: SYNTHROID 125 mcg TAB PO SCH (14:00)
[2023-04-23] MEDS: RANEXA PO SCH ×2 (14:00→20:41)
[2023-04-23] MEDS: LANTUS SC SCH (15:00)
[2023-04-23] MEDS ORDERED: SNACK - Diabetic Appropriate PO SCH (20:00)
[2023-04-23] MEDS ORDERED: LIPITOR TAB 40 MG PO SCH (21:00)
[2023-04-24] MEDS: LOPRESSOR TAB 25 MG PO SCH ×2 (00:51→10:21)
[2023-04-24 05:30] LABS: BASOPHILS % (AUTO) 0.3 % (0.2-1.0); EOSINOPHILS # (AUTO) 0.1 x10^3/uL (0.0-0.2); HEMATOCRIT 30.6 % (36.0-47.0); HEMOGLOBIN 10.1 g/dL (12.0-16.0); MEAN CORPUSCULAR HEMOGLOBIN 23.1 pg (27.0-34.0); MEAN CORPUSCULAR HGB CONC 32.9 g/dL (33.0-35.0); MEAN CORPUSCULAR VOLUME 70.1 fL (80.0-100.0); MEAN PLATELET VOLUME 8.7 fL (7.4-11.0); MONOCYTES # (AUTO) 0.6 x10^3/uL (0.3-0.8); MONOCYTES % (AUTO) 12.8 % (0.0-13.0); NEUTROPHILS # (AUTO) 3.1 x10^3/uL (2.2-4.8); NEUTROPHILS % (AUTO) 63.9 % (42.0-75.0); PLATELET COUNT 157 X10^3/uL (150.0-450.0); RED BLOOD COUNT 4.37 X10^6/uL (3.5-5.4); RED CELL DISTRIBUTION WIDTH 17.8 % (11.6-16.5); WHITE BLOOD COUNT 4.8 X10^3/uL (3.6-10.0)
[2023-04-24 05:48] LABS: CALCIUM 8.5 mg/dL (8.5-10.1); CARBON DIOXIDE 31.5 mmol/L (21-32); COR CA(FOR HYPOALB) 9.3 mg/dL (8.5-10.1); CREATININE 1.68 mg/dL (0.55-1.02); POTASSIUM 3.3 mmol/L (3.5-5.1); TOTAL PROTEIN 7.1 g/dL (6.4-8.2)
--- NOTE | 2023-04-24 05:56 | RAD ---
EXAM:CHEST, 1 VIEWHISTORY:SOB; CHFCOMPARISON:04/22/2023FINDINGS:The cardiomediastinal silhouette is stable.. Post sternotomy changes.No acute airspace disease. No pneumothorax or effusion.No acute osseous abnormality. ACDF hardware. Surgical sebastien overlying the left axilla.IMPRESSION:No acute cardiopulmonary disease.THIS IS AN ELECTRONICALLY VERIFIED FINAL REPORT04/24/2023 5:53 AM - Electronically signed by Santosh Oconnor MD
[2023-04-24 06:06] LABS: ANISOCYTOSIS SLIGHT; HYPOCHROMASIA 1+; MICROCYTOSIS 1+; PLATELET MORPHOLOGY COMMENT NORMAL (NORMAL)
[2023-04-24] MEDS ORDERED: CONSULT PHARMACY - POTASSIUM & MAGNESIUM XX SCH (08:00)
[2023-04-24] MEDS ORDERED: K-DUR TAB 20 MEQ PO SCH (09:00)
[2023-04-24] MEDS ORDERED: MAG-OX TAB PO SCH (09:00)
[2023-04-24] MEDS: LANTUS SC SCH (10:21)
[2023-04-24] MEDS: LASIX IVP SCH (10:21)
[2023-04-24] MEDS: RANEXA PO SCH (10:21)
[2023-04-24] MEDS: SYNTHROID 125 mcg TAB PO SCH (10:21)
[2023-04-24] MEDS: ROCEPHIN VIAL 1 GRAM 1 G in NS 100 ML IV 100 ML IV SCH (10:21)
[2023-04-24] MEDS: ELIQUIS PO SCH (10:21)
[2023-04-24] MEDS: FARXIGA PO SCH (10:23)
[2023-04-24 12:29] VITALS: BP 110/55; PULSE 50; RESP 18; TEMP 98.1; O2SAT 97
== END 2023-04-24 15:45 | disposition home or self-care (01) ==
LOC: MED/SURG 12:50 → ER 12:50 → MED/SURG 18:42
PROVIDERS: ADMIT Internal Medicine; ATTEND Internal Medicine
DX: I25.10 Atherosclerotic heart disease of native coronary artery without angina pectoris; Z20.822 Contact with and (suspected) exposure to COVID-19; E87.1 Hypo-osmolality and hyponatremia; E78.2 Mixed hyperlipidemia; R06.02 Shortness of breath; R53.1 Weakness; Z79.4 Long term (current) use of insulin; I50.9 Heart failure, unspecified; N18.9 Chronic kidney disease, unspecified; J20.8 Acute bronchitis due to other specified organisms; Z79.01 Long term (current) use of anticoagulants; E11.65 Type 2 diabetes mellitus with hyperglycemia

== ENCOUNTER 2023-11-30 09:59 | Inpatient (IN) ==
--- NOTE | 2023-11-30 10:20 | DR.AMS ---
HPI Time Seen Time Seen by Provider: 11/30/23 10:20 PMH PMH Past Medical History: CHF, Diabetes, Hyperthyroidism, [place] and Renal Disease Past Surgical History: Yes Surgical History: Hysterectomy, Mastectomy and Ortho Surgery Family History Family Medical History: Diabetes Mellitus and Cancer Social History Do you use any recreational Drugs:: No PE Vitals Vital Signs: Temp Pulse Resp BP Pulse Ox O2 Del Method 11/30/23 15:00 84 24 99 11/30/23 15:00 118/58 11/30/23 14:45 115/56 11/30/23 14:45 86 29 H 99 11/30/23 14:30 89 22 100 11/30/23 14:30 101/56 11/30/23 14:15 90 21 100 11/30/23 14:15 97/54 11/30/23 14:00 88 26 H 100 11/30/23 14:00 110/55 11/30/23 13:45 86 28 H 99 11/30/23 13:45 108/52 11/30/23 13:30 87 22 100 11/30/23 13:30 108/51 11/30/23 13:15 88 18 98 11/30/23 13:15 123/59 11/30/23 13:00 136/66 11/30/23 13:00 136/66 11/30/23 13:00 92 H 20 100 11/30/23 12:45 89 21 100 11/30/23 12:31 118/81 11/30/23 12:31 95 H 34 H 97 11/30/23 12:30 94 H 28 H 11/30/23 12:15 94 H 20 100 11/30/23 12:00 96 H 19 99 11/30/23 11:54 88 24 99 11/30/23 11:39 132/60 11/30/23 11:39 96 H 100 11/30/23 11:15 91 H 37 H 97 11/30/23 11:00 141/64 11/30/23 11:00 141/64 11/30/23 11:00 84 17 100 11/30/23 10:45 87 23 99 11/30/23 10:30 121/57 11/30/23 10:30 92 H 18 11/30/23 10:15 89 27 H 98 11/30/23 10:11 90 18 93 L 11/30/23 10:16 97.9 F 90 20 143/62 99 Room Air ROR Labs Reviewed 11/30/23 11:27 11/30/23 11:27 Laboratory: WBC 13.2 X10^3/uL (3.6-10.0) H 11/30/23 11:27 RBC 4.48 X10^6/uL (3.5-5.4) 11/30/23 11:27 Hgb 11.6 g/dL (12.0-16.0) L 11/30/23 11:27 Hct 36.1 % (36.0-47.0) 11/30/23 11:27 MCV 80.7 fL (80.0-100.0) 11/30/23 11:27 MCH 25.8 pg (27.0-34.0) L 11/30/23 11:27 MCHC 32.0 g/dL (33.0-35.0) L 11/30/23 11:27 RDW 19.9 % (11.6-16.5) H 11/30/23 11:27 Plt Count 188 X10^3/uL (150.0-450.0) 11/30/23 11:27 MPV 8.2 fL (7.4-11.0) 11/30/23 11:27 Neut % (Auto) 89.8 % (42.0-75.0) H 11/30/23 11:27 Lymph % (Auto) 4.5 % (21.0-51.0) L 11/30/23 11:27 [place] % (Auto) 5.3 % (0.0-13.0) 11/30/23 11:27 Eos % (Auto) 0.1 % (0.9-2.9) L 11/30/23 11:27 Baso % (Auto) 0.3 % (0.2-1.0) 11/30/23 11:27 Neut # (Auto) 11.8 x10^3/uL (2.2-4.8) H 11/30/23 11:27 Lymph # (Auto) 0.6 X10^3/uL (1.3-2.9) L 11/30/23 11:27 [place] # (Auto) 0.7 x10^3/uL (0.3-0.8) 11/30/23 11:27 Eos # (Auto) 0.0 x10^3/uL (0.0-0.2) 11/30/23 11:27 Baso # (Auto) 0.0 X10^3/uL (0.0-0.1) 11/30/23 11:27 Absolute Nucleated RBC 0.0 /100WBC 11/30/23 11:27 PT 20.3 SECONDS (11.8-14.3) 11/30/23 11:27 INR Target Range - 11/30/23 11:27 INR 1.77 (0.8-1.3) H 11/30/23 11:27 APTT 36.2 SECONDS (22.9-36.5) 11/30/23 11: PTT Comment - 11/30/23 11:27 D-Dimer 6.17 ug/ml (0.0-0.57) H 11/30/23 11:27 Sodium 134 mmol/L (136-145) L 11/30/23 11:27 Corrected Sodium 137 mmol/L (136-145) 11/30/23 11:27 Potassium 2.2 mmol/L (3.5-5.1) L* 11/30/23 11:27 Chloride 92 mmol/L (98-107) L 11/30/23 11:27 Carbon Dioxide 30.2 mmol/L (21-32) 11/30/23 11:27 BUN 44 mg/dL (7-18) H 11/30/23 11:27 Creatinine 2.16 mg/dL (0.55-1.02) H 11/30/23 11:27 Est GFR (MDRD) Af Amer 28 (>60) L 11/30/23 11:27 Est GFR (MDRD) Non-Af 23 (>60) L 11/30/23 11:27 Glucose 212 mg/dL (65-99) H 11/30/23 11:27 Calcium 9.5 mg/dL (8.5-10.1) 11/30/23 11:27 Corrected Calcium 10.5 mg/dL (8.5-10.1) H 11/30/23 11:27 Magnesium 1.8 mg/dL (2.0-2.9) L 11/30/23 11:27 Total Bilirubin 1.70 mg/dL (0.2-1.0) H 11/30/23 11:27 AST 66 Units/L (15-37) H 11/30/23 11:27 ALT 34 Units/L (12-78) 11/30/23 11:27 Alkaline Phosphatase 125 Units/L (46-116) H 11/30/23 11:27 Creatine Kinase 295 Units/L (26-192) H 11/30/23 11:27 Troponin I High Sens 45.7 ng/L (4.0-60.0) 11/30/23 13:05 B-Natriuretic Peptide 2060 pg/mL (0-79) H 11/30/23 11:27 Total Protein 8.3 g/dL (6.4-8.2) H 11/30/23 11: Albumin 2.8 g/dL (3.4-5.0) L 11/30/23 11:27 Globulin 5.5 g/dL (2.5-4.5) H 11/30/23 11:27 Albumin/Globulin Ratio 0.5 Ratio (1.1-2.1) L 11/30/23 11:27 Specimen Type Catherized urine 11/30/23 12:32 Urine Color Pale yellow (YELLOW) 11/30/23 12:32 Urine Appearance Clear (CLEAR) 11/30/23 12:32 Urine pH 6.0 (5.0 - 8.0) 11/30/23 12:32 Ur Specific [place] 1.015 (1.000-1.030) 11/30/23 12:32 Urine Protein Negative (NEGATIVE) 11/30/23 12:32 Urine Glucose (UA) 4+ (NEGATIVE) 11/30/23 12:32 Urine Ketones Negative (NEGATIVE) 11/30/23 12:32 Urine Blood 1+ (NEGATIVE) 11/30/23 12:32 Urine Nitrite Negative (NEGATIVE) 11/30/23 12:32 Urine Bilirubin Negative (NEGATIVE) 11/30/23 12:32 Urine Urobilinogen Normal (NORMAL) 11/30/23 12:32 Ur Leukocyte Esterase Negative (NEGATIVE) 11/30/23 12:32 Urine RBC 0-2 /HPF (0-3) 11/30/23 12:32 Urine WBC 0-2 /HPF (0-5) 11/30/23 12:32 Ur Squamous Epith Cells Negative /HPF (NEGATIVE) 11/30/23 12:32 Urine Bacteria 1+ /HPF (NEGATIVE) 11/30/23 12:32 Ur Culture Indicated? No/not indicated 11/30/23 12:32 Opioid Opioid Risk Tool Age ([place] box if 16-45): No History of Preadolescent Sexual Abuse: No Total: 0 Total Score Risk Category: Low Risk Copyright: Ponce BARROSO predicting aberrant behaviors Discharge Plan Diagnosis Discharge Problem: AMS (altered mental status), Acute on chronic renal failure, Hypokalemia, Hypomagnesemia Discharge Plan Patient Disposition: 09 ADMITTED INPATIENT Condition: Stable Orders to Discharge Patient Discharge Orders: Transfer (Routine); Ordered 11/30/23 Ordered By: SIMON CHOU
--- NOTE | 2023-11-30 10:34 | EKG ---
Test Reason : ams Blood Pressure : */* mmHG Vent. Rate : 91 BPM Atrial Rate : 91 BPM P-R Int : 232 ms QRS Dur : 100 ms QT Int : 304 ms P-R-T Axes : 36 96 -46 degrees QTc Int : 373 ms Sinus rhythm with 1st degree AV block Rightward axis Nonspecific ST and T wave abnormality Abnormal ECG When compared with ECG of 05-JUL-2023 11:22, QT has shortened Confirmed by Naif Campbell ([id number]) on 11/30/2023 10:39:14 AM Referred By: Confirmed By: Naif Campbell
[2023-11-30 10:45] LABS: BILIRUBIN,URINE NEGATIVE (NEGATIVE); BLOOD/HEMOGLOBIN,URINE 1+ (NEGATIVE); GLUCOSE, URINE 4+ (NEGATIVE); KETONES,URINE NEGATIVE (NEGATIVE); LEUKOCYTE ESTERASE ,URINE NEGATIVE (NEGATIVE); NITRITES,URINE NEGATIVE (NEGATIVE); PROTEIN,URINE NEGATIVE (NEGATIVE); UROBILINOGEN,URINE NORMAL (NORMAL)
[2023-11-30 10:49] LABS: APPEARANCE,URINE CLEAR (CLEAR); COLOR,URINE PALE YELLOW (YELLOW)
[2023-11-30 10:55] LABS: BACTERIA,URINE 1+ /HPF (NEGATIVE); RBC,URINE 0-2 /HPF (0-3); SQUAMOUS EPITHELIAL CELL,UR RARE /HPF (NEGATIVE)
[2023-11-30 11:35] LABS: BASOPHILS % (AUTO) 0.3 % (0.2-1.0); EOSINOPHILS % (AUTO) 0.1 % (0.9-2.9); HEMATOCRIT 36.1 % (36.0-47.0); HEMOGLOBIN 11.6 g/dL (12.0-16.0); LYMPHOCYTES # (AUTO) 0.6 X10^3/uL (1.3-2.9); LYMPHOCYTES % (AUTO) 4.5 % (21.0-51.0); MEAN CORPUSCULAR HEMOGLOBIN 25.8 pg (27.0-34.0); MEAN CORPUSCULAR VOLUME 80.7 fL (80.0-100.0); MEAN PLATELET VOLUME 8.2 fL (7.4-11.0); MONOCYTES # (AUTO) 0.7 x10^3/uL (0.3-0.8); MONOCYTES % (AUTO) 5.3 % (0.0-13.0); NEUTROPHILS # (AUTO) 11.8 x10^3/uL (2.2-4.8); NEUTROPHILS % (AUTO) 89.8 % (42.0-75.0); PLATELET COUNT 188 X10^3/uL (150.0-450.0); RED BLOOD COUNT 4.48 X10^6/uL (3.5-5.4); RED CELL DISTRIBUTION WIDTH 19.9 % (11.6-16.5); WHITE BLOOD COUNT 13.2 X10^3/uL (3.6-10.0)
[2023-11-30 11:43] LABS: INR 1.77 (0.8-1.3)
[2023-11-30 11:51] LABS: ALBUMIN 2.8 g/dL (3.4-5.0); CALCIUM 9.5 mg/dL (8.5-10.1); CARBON DIOXIDE 30.2 mmol/L (21-32); COR CA(FOR HYPOALB) 10.5 mg/dL (8.5-10.1); CREATININE 2.16 mg/dL (0.55-1.02); TOTAL PROTEIN 8.3 g/dL (6.4-8.2)
[2023-11-30 11:59] LABS: POTASSIUM 2.2 mmol/L (3.5-5.1)
--- NOTE | 2023-11-30 12:15 | CT ---
PROCEDURE: CT Head without IV Contrast.HISTORY: Altered mental status.TECHNIQUE: Axial images were performed through the head without the administration of IV contrast with multiplanar reformations . Dose reduction techniques including Automated Exposure Control (AEC) and adjustment of mA and kV were utilized .COMPARISON: None.TECHNICAL QUALITY: Satisfactory.FINDINGS:Brain shows no mass, hemorrhage, or acute stroke.Mild periventricular old micro ischemic changes.Ventricles are normal size for patient's age.No acute skull or scalp abnormality.Visualized sinuses and mastoids are clear.IMPRESSION:1. No acute intracranial abnormality.2. Mild senescent changes.THIS IS AN ELECTRONICALLY VERIFIED FINAL REPORT11/30/2023 12:12 PM - Electronically signed by Sunny Coyle MD
--- NOTE | 2023-11-30 12:19 | CT ---
PROCEDURE: CT Abdomen and Pelvis without IV Contrast.HISTORY: Unable to move left leg.TECHNIQUE: Axial images were performed through the abdomen and pelvis without the administration of IV contrast with multiplanar reformations . Oral contrast was notadministered . Dose reduction techniques including Automated Exposure Control (AEC) and adjustment of mA and kV were utilized ..COMPARISON: None.TECHNICAL QUALITY: Satisfactory.FINDINGS:Clear lung bases. Mild cardiomegaly.Liver, spleen, adrenals, and pancreas show no significant abnormality.Kidneys show no stones or obstruction.Previous cholecystectomy.Small to moderate ascites and upper abdomen and pericolic gutters. No pneumoperitoneum.Moderate atherosclerosis aorta.No lymphadenopathy.No bowel obstruction or inflammation. Appendix is not visualized. Mild colonic diverticulosisPelvis shows previous hysterectomy and small amount of fluid inferior pericolic gutters. No masses normal urinary bladder.Stranding in subcutaneous fat probably related to dependent edema both flanks in the pelvis.No acute bony abnormality.IMPRESSION:1. Ascites.2. Mild colonic diverticulosis.3. Mild cardiomegaly.4. Dependent edema in the flanks and pelvis in subcutaneous fat.THIS IS AN ELECTRONICALLY VERIFIED FINAL REPORT11/30/2023 12:16 PM - Electronically signed by Sunny Coyle MD
[2023-11-30] MEDS: OFIRMEV IV 1000 MG VIAL 1,000 MG/100 ML VIAL IV ONE (12:41)
[2023-11-30 12:49] LABS: BILIRUBIN,URINE NEGATIVE (NEGATIVE); BLOOD/HEMOGLOBIN,URINE 1+ (NEGATIVE); GLUCOSE, URINE 4+ (NEGATIVE); KETONES,URINE NEGATIVE (NEGATIVE); LEUKOCYTE ESTERASE ,URINE NEGATIVE (NEGATIVE); NITRITES,URINE NEGATIVE (NEGATIVE); PROTEIN,URINE NEGATIVE (NEGATIVE); UROBILINOGEN,URINE NORMAL (NORMAL)
[2023-11-30 12:51] LABS: APPEARANCE,URINE CLEAR (CLEAR); COLOR,URINE PALE YELLOW (YELLOW)
[2023-11-30 13:00] LABS: BACTERIA,URINE 1+ /HPF (NEGATIVE); RBC,URINE 0-2 /HPF (0-3); SQUAMOUS EPITHELIAL CELL,UR NEGATIVE /HPF (NEGATIVE)
[2023-11-30] MEDS: MAGNESIUM SULFATE 1 GRAM/100 mL PREMIX 1 G/100 ML BAG IV ONE (13:01)
[2023-11-30] MEDS: K-RIDER 10 MEQ/100 ML WATER 10 MEQ/100 ML BAG IV ONE (13:18)
--- NOTE | 2023-11-30 13:18 | RAD ---
EXAM:Portable AP chestHISTORY:AMSCOMPARISON:07/05/2023 [email or web address] Mild chronic appearing interstitial prominence without evidence for pneumonia, consolidation or pleural fluid. Surgical clips left axilla.IMPRESSION:Stable cardiomegaly and postsurgical findings.THIS IS AN ELECTRONICALLY VERIFIED FINAL REPORT11/30/2023 1:14 PM - Electronically signed by Dionicio aJsso MD
[2023-11-30 16:59] VITALS: BMI 28.8
[2023-11-30] MEDS: K-DUR TAB 20 MEQ PO ONE (20:20)
[2023-11-30] MEDS: NovoLIN R (or HumuLIN R) SUBCUT PRN (22:09)
[2023-12-01] MEDS: K-DUR TAB 20 MEQ PO ONE (01:21)
[2023-12-01] MEDS: TYLENOL 325 MG TAB PO PRN (03:37)
[2023-12-01 05:39] LABS: BASOPHILS % (AUTO) 0.4 % (0.2-1.0); EOSINOPHILS % (AUTO) 0.2 % (0.9-2.9); HEMATOCRIT 31.2 % (36.0-47.0); LYMPHOCYTES # (AUTO) 0.5 X10^3/uL (1.3-2.9); LYMPHOCYTES % (AUTO) 4.9 % (21.0-51.0); MEAN CORPUSCULAR HEMOGLOBIN 25.8 pg (27.0-34.0); MEAN CORPUSCULAR HGB CONC 32.2 g/dL (33.0-35.0); MEAN CORPUSCULAR VOLUME 80.3 fL (80.0-100.0); MEAN PLATELET VOLUME 8.5 fL (7.4-11.0); MONOCYTES # (AUTO) 0.7 x10^3/uL (0.3-0.8); MONOCYTES % (AUTO) 6.5 % (0.0-13.0); NEUTROPHILS # (AUTO) 9.7 x10^3/uL (2.2-4.8); PLATELET COUNT 162 X10^3/uL (150.0-450.0); RED BLOOD COUNT 3.88 X10^6/uL (3.5-5.4); RED CELL DISTRIBUTION WIDTH 19.8 % (11.6-16.5); WHITE BLOOD COUNT 11.1 X10^3/uL (3.6-10.0)
[2023-12-01 06:13] LABS: ALBUMIN 2.1 g/dL (3.4-5.0); CALCIUM 8.4 mg/dL (8.5-10.1); CARBON DIOXIDE 29.5 mmol/L (21-32); COR CA(FOR HYPOALB) 9.9 mg/dL (8.5-10.1); CREATININE 1.95 mg/dL (0.55-1.02); MAGNESIUM 1.9 mg/dL (2.0-2.9); TOTAL PROTEIN 6.8 g/dL (6.4-8.2)
[2023-12-01 06:28] LABS: POTASSIUM 2.8 mmol/L (3.5-5.1)
[2023-12-01 06:32] LABS: INR 1.99 (0.8-1.3)
[2023-12-01 06:37] LABS: ANISOCYTOSIS SLIGHT; HYPOCHROMASIA SLIGHT; PLATELET MORPHOLOGY COMMENT NORMAL (NORMAL)
[2023-12-01] MEDS: MAG-OX TAB PO SCH (08:30)
[2023-12-01] MEDS: K-DUR TAB 20 MEQ PO SCH (08:30)
[2023-12-01] MEDS: LOVENOX INJ 80 MG SYR SC SCH (11:04)
--- NOTE | 2023-12-01 13:52 | DR.H&P ---
H&P History & Physical for Day of: H&P Date: 12/01/23 Chief Complaint Chief Complaint: Altered mental status Allergies Allergies Allergy/AdvReac Type Severity Reaction Status Date / Time Sulfa (Sulfonamide Allergy Verified 11/30/23 17:00 Antibiotics) [SULFA] torsemide [From Demadex] Allergy Verified 11/30/23 17:00 History of Present Illness History of Present Illness: This is a pleasant 78-year-old white female who was brought [facility] emergency department after her family found her at home confused. They were planning on going to [place] earlier that morning but were, unfortunately, not able to go. The patient did not know who her daughters were and was confused about her orientation. She was found to be hyponatremic along with hypokalemia in the emergency department. She was found to have pitting edema all the way up to her proximal thighs. She was also seen to have ascites on the CT scan of her abdomen and pelvis as well. She is volume contracted and she had a elevated creatinine greater than 2. Her BNP is greater than 2000 so she was admitted for diuresis with Lasix. The patient does have a history of congestive heart failure along with atrial fibrillation. Past Medical History Past Medical History: CHF, Diabetes, Hyperthyroidism, CT and Renal Disease Additional Medical History: A-FIB Past Surgical History Surgical History: Appendectomy, CABG/Valve Surgery, Cholecystectomy, Hysterectomy, Mastectomy and Ortho Surgery Family History Family Medical History: Cancer, CT, Sudden Cardiac and Hypertension Social History Does patient currently use any type of tobacco product: No Have you used tobacco products in the last 12 months: No Type of Tobacco Use: None Does any household member use tobacco: No Alcohol Use: None Drug Use: None Medications Home Medications: Home Medications Medication Instructions Recorded Confirmed Type atorvastatin 40 mg tablet 40 mg PO QHS 02/07/23 11/30/23 History dapagliflozin propanediol 10 mg 10 mg PO QDAY 04/22/23 11/30/23 History tablet (Farxiga) insulin glargine 100 unit/mL 20 unit subcut QDAY 04/22/23 11/30/23 History subcutaneous solution (Lantus U-100 Insulin) levothyroxine 125 mcg tablet 125 mcg PO QDAY 04/22/23 11/30/23 History potassium chloride 20 mEq 20 meq PO BID 04/22/23 11/30/23 History tablet,extended release(part/cryst) ranolazine 500 mg tablet,extended 500 mg PO BID 04/22/23 11/30/23 History release,12 hr apixaban 2.5 mg tablet (Eliquis) 2.5 mg PO BID 11/30/23 11/30/23 History aspirin 81 mg capsule,delayed 81 mg PO DAILY 11/30/23 11/30/23 History release bumetanide 2 mg tablet 2 mg PO BID 11/30/23 11/30/23 History ferrous sulfate 325 mg (65 mg 325 mg PO QDAY 11/30/23 11/30/23 History iron) tablet (FeroSul) insulin lispro 100 unit/mL 0 - 13 unit subcut TID 11/30/23 11/30/23 History subcutaneous solution (Humalog U-100 Insulin) levothyroxine 125 mcg tablet 125 mcg PO QDAY 11/30/23 11/30/23 History Labs 12/01/23 05:10 12/01/23 05:10 Labs: Laboratory WBC 11.1 X10^3/uL (3.6-10.0) H 12/01/23 05:10 RBC 3.88 X10^6/uL (3.5-5.4) 12/01/23 05:10 Hgb 10.0 g/dL (12.0-16.0) L 12/01/23 05:10 Hct 31.2 % (36.0-47.0) L 12/01/23 05:10 MCV 80.3 fL (80.0-100.0) 12/01/23 05:10 MCH 25.8 pg (27.0-34.0) L 12/01/23 05:10 MCHC 32.2 g/dL (33.0-35.0) L 12/01/23 05:10 RDW 19.8 % (11.6-16.5) H 12/01/23 05:10 Plt Count 162 X10^3/uL (150.0-450.0) 12/01/23 05:10 Plt Count Comment Adequate (ADEQUATE) 12/01/23 05:10 MPV 8.5 fL (7.4-11.0) 12/01/23 05:10 Neut % (Auto) 88.0 % (42.0-75.0) H 12/01/23 05:10 Lymph % (Auto) 4.9 % (21.0-51.0) L 12/01/23 05:10 [place] % (Auto) 6.5 % (0.0-13.0) 12/01/23 05:10 Eos % (Auto) 0.2 % (0.9-2.9) L 12/01/23 05:10 Baso % (Auto) 0.4 % (0.2-1.0) 12/01/23 05:10 Neut # (Auto) 9.7 x10^3/uL (2.2-4.8) H 12/01/23 05:10 Lymph # (Auto) 0.5 X10^3/uL (1.3-2.9) L 12/01/23 05:10 [place] # (Auto) 0.7 x10^3/uL (0.3-0.8) 12/01/23 05:10 Eos # (Auto) 0.0 x10^3/uL (0.0-0.2) 12/01/23 05:10 Baso # (Auto) 0.0 X10^3/uL (0.0-0.1) 12/01/23 05:10 Absolute Nucleated RBC 0.0 /100WBC 12/01/23 05:10 Plt Morphology Comment Normal (NORMAL) 12/01/23 05:10 RBC Morphology Abnormal (NORMAL) A 12/01/23 05:10 Hypochromasia Slight A 12/01/23 05:10 Anisocytosis Slight A 12/01/23 05:10 PT 22.2 SECONDS (11.8-14.3) 12/01/23 05:10 INR Target Range - 12/01/23 05:10 INR 1.99 (0.8-1.3) H 12/01/23 05:10 APTT 43.4 SECONDS (22.9-36.5) H 12/01/23 05:10 PTT Comment - 12/01/23 05:10 D-Dimer 6.17 ug/ml (0.0-0.57) H 11/30/23 11:27 Sodium 131 mmol/L (136-145) L 12/01/23 05:10 Corrected Sodium 133 mmol/L (136-145) L 12/01/23 05:10 Potassium 2.8 mmol/L (3.5-5.1) L* 12/01/23 05:10 Chloride 90 mmol/L (98-107) L 12/01/23 05:10 Carbon Dioxide 29.5 mmol/L (21-32) 12/01/23 05:10 BUN 39 mg/dL (7-18) H 12/01/23 05:10 Creatinine 1.95 mg/dL (0.55-1.02) H 12/01/23 05:10 Est GFR (MDRD) Af Amer 32 (>60) L 12/01/23 05:10 Est GFR (MDRD) Non-Af 26 (>60) L 12/01/23 05:10 Glucose 177 mg/dL (65-99) H 12/01/23 05:10 POC Glucose (mg/dL) 204 mg/dL (65-99) H 12/01/23 11:07 Calcium 8.4 mg/dL (8.5-10.1) L 12/01/23 05:10 Corrected Calcium 9.9 mg/dL (8.5-10.1) 12/01/23 05:10 Magnesium 1.9 mg/dL (2.0-2.9) L 12/01/23 05:10 Total Bilirubin 1.80 mg/dL (0.2-1.0) H 12/01/23 05:10 AST 49 Units/L (15-37) H 12/01/23 05:10 ALT 24 Units/L (12-78) 12/01/23 05:10 Alkaline Phosphatase 95 Units/L (46-116) 12/01/23 05:10 Creatine Kinase 295 Units/L (26-192) H 11/30/23 11:27 Troponin I High Sens 45.7 ng/L (4.0-60.0) 11/30/23 13:05 B-Natriuretic Peptide 1960 pg/mL (0-79) H 11/30/23 19:10 Total Protein 6.8 g/dL (6.4-8.2) 12/01/23 05:10 Albumin 2.1 g/dL (3.4-5.0) L 12/01/23 05:10 Globulin 4.7 g/dL (2.5-4.5) H 12/01/23 05:10 Albumin/Globulin Ratio 0.4 Ratio (1.1-2.1) L 12/01/23 05:10 TSH 3rd Generation 1.149 uIU/mL (0.358-3.74) 12/01/23 05:15 Specimen Type Catherized urine 11/30/23 12:32 Urine Color Pale yellow (YELLOW) 11/30/23 12:32 Urine Appearance Clear (CLEAR) 11/30/23 12:32 Urine pH 6.0 (5.0 - 8.0) 11/30/23 12:32 Ur Specific [place] 1.015 (1.000-1.030) 11/30/23 12:32 Urine Protein Negative (NEGATIVE) 11/30/23 12:32 Urine Glucose (UA) 4+ (NEGATIVE) 11/30/23 12:32 Urine Ketones Negative (NEGATIVE) 11/30/23 12:32 Urine Blood 1+ (NEGATIVE) 11/30/23 12:32 Urine Nitrite Negative (NEGATIVE) 11/30/23 12:32 Urine Bilirubin Negative (NEGATIVE) 11/30/23 12:32 Urine Urobilinogen Normal (NORMAL) 11/30/23 12:32 Ur Leukocyte Esterase Negative (NEGATIVE) 11/30/23 12:32 Urine RBC 0-2 /HPF (0-3) 11/30/23 12:32 Urine WBC 0-2 /HPF (0-5) 11/30/23 12:32 Ur Squamous Epith Cells Negative /HPF (NEGATIVE) 11/30/23 12:32 Urine Bacteria 1+ /HPF (NEGATIVE) 11/30/23 12:32 Ur Culture Indicated? No/not indicated 11/30/23 12:32 Review of Systems Constitutional: Weakness and Malaise Eyes: No Symptoms Reported ENT: No Symptoms Reported Respiratory: No Symptoms Reported Cardiovascular: No Symptoms Reported Gastrointestinal: No Symptoms Reported Genitourinary: Retention Musculoskeletal: No Symptoms Reported Skin: No Symptoms Reported Physical Exam Vital Signs: Vital Signs Temperature 97.6 F Temperature 97.8 F Pulse Rate 75 Pulse Rate 72 Pulse Rate 70 Pulse Rate 71 Pulse Rate 65 Pulse Rate 70 Pulse Rate 72 Pulse Rate 74 Pulse Rate 77 Pulse Rate 70 Pulse Rate 62 Pulse Rate 69 Pulse Rate 67 Pulse Rate 64 Pulse Rate 68 Pulse Rate 67 Pulse Rate 68 Pulse Rate 69 Pulse Rate 63 Pulse Rate 58 Pulse Rate 64 Pulse Rate 73 Respiratory Rate 20 Respiratory Rate 18 Respiratory Rate 19 Respiratory Rate 19 Respiratory Rate 16 Respiratory Rate 24 Respiratory Rate 23 Respiratory Rate 14 Respiratory Rate 24 Respiratory Rate 23 Respiratory Rate 21 Respiratory Rate 21 Respiratory Rate 22 Respiratory Rate 25 Respiratory Rate 24 Respiratory Rate 22 Respiratory Rate 23 Respiratory Rate 19 Respiratory Rate 16 Respiratory Rate 16 Respiratory Rate 16 Blood Pressure 120/56 Blood Pressure 117/55 Blood Pressure 113/56 Blood Pressure 97/55 Blood Pressure 106/51 O2 Sat by Pulse Oximetry 100 O2 Sat by Pulse Oximetry 100 O2 Sat by Pulse Oximetry 100 O2 Sat by Pulse Oximetry 100 O2 Sat by Pulse Oximetry 100 O2 Sat by Pulse Oximetry 100 O2 Sat by Pulse Oximetry 100 O2 Sat by Pulse Oximetry 100 O2 Sat by Pulse Oximetry 100 O2 Sat by Pulse Oximetry 100 O2 Sat by Pulse Oximetry 100 O2 Sat by Pulse Oximetry 100 O2 Sat by Pulse Oximetry 100 O2 Sat by Pulse Oximetry 100 O2 Sat by Pulse Oximetry 100 O2 Sat by Pulse Oximetry 100 O2 Sat by Pulse Oximetry 98 O2 Sat by Pulse Oximetry 100 O2 Sat by Pulse Oximetry 99 O2 Sat by Pulse Oximetry 99 O2 Sat by Pulse Oximetry 99 Oriented: Not Oriented Eyes: Normal Ear: Normal Nose: Normal Throat: Normal Respiratory: Diminished Throughout and [place] Throughout Cardiovascular: Normal Auscultation: Bowel Sounds: Normal Palpation: Normal Tenderness: Normal Skin: Normal Musculoskeletal: Normal Psychiatric: Anxiety Mood Description: Calm Affect: Flat Speech Pattern: Clear and Appropriate Assessment/Plan (1) Congestive heart failure: Qualifiers: Heart failure chronicity: acute on chronic Heart failure type: unspecified Qualified Code(s): I50.9 - Heart failure, unspecified Narrative Support Text: Pitting edema all the way to the proximal thighs. Status: Chronic Plan: Start Bumex 2 mg twice daily (2) Chest pain, rule out acute myocardial infarction: Status: Acute Plan: Serial cardiac enzymes. (3) Dehydration: Status: Acute Plan: IV hydration. (4) Altered mental state: Qualifiers: Altered mental status type: transient alteration of awareness Qualified Code(s): R40.4 - Transient alteration of awareness Status: Acute Plan: Monitor for improvement has been correct patient is underlying electrolyte abnormalities. (5) CHF (congestive heart failure): Status: Acute Plan: Monitor daily BMPs for fluid overload. Today's BNP is down from yesterday's showing an improvement. (6) Hypokalemia: Status: Acute Plan: Replace with potassium replacement protocol. (7) Hypomagnesemia: Status: Acute Plan: Replace with magnesium oxide. (8) Hypothyroidism: Qualifiers: Hypothyroidism type: acquired Qualified Code(s): E03.9 - Hypothyroidism, unspecified Status: Chronic Plan: Resume levothyroxine. (9) Insulin dependent type 2 diabetes mellitus: Status: Acute Plan: Cover with slight scale regular insulin per protocol.
[2023-12-01] MEDS: RANEXA PO SCH (14:32)
[2023-12-01] MEDS: SYNTHROID 125 mcg TAB PO SCH (14:32)
[2023-12-01] MEDS: PATIENT'S HOME MEDICATION (Dapagliflozin Propanediol [Farxiga] 10 mg tablet) PO SCH (14:35)
[2023-12-01] MEDS: CONSULT PHARMACY - POTASSIUM & MAGNESIUM XX SCH ×2 (15:14)
[2023-12-01] MEDS: BUMEX TAB 1 MG PO SCH (16:04)
[2023-12-01] MEDS: ELIQUIS PO SCH (20:07)
[2023-12-01] MEDS: LIPITOR TAB 40 MG PO SCH (20:08)
[2023-12-01] MEDS: SNACK - Diabetic Appropriate PO SCH (23:36)
[2023-12-02 05:25] LABS: BASOPHILS % (AUTO) 0.4 % (0.2-1.0); EOSINOPHILS # (AUTO) 0.1 x10^3/uL (0.0-0.2); HEMATOCRIT 29.9 % (36.0-47.0); HEMOGLOBIN 9.7 g/dL (12.0-16.0); LYMPHOCYTES # (AUTO) 0.4 X10^3/uL (1.3-2.9); LYMPHOCYTES % (AUTO) 4.8 % (21.0-51.0); MEAN CORPUSCULAR HEMOGLOBIN 26.2 pg (27.0-34.0); MEAN CORPUSCULAR HGB CONC 32.5 g/dL (33.0-35.0); MEAN CORPUSCULAR VOLUME 80.7 fL (80.0-100.0); MEAN PLATELET VOLUME 8.6 fL (7.4-11.0); MONOCYTES # (AUTO) 0.7 x10^3/uL (0.3-0.8); MONOCYTES % (AUTO) 8.7 % (0.0-13.0); NEUTROPHILS # (AUTO) 7.3 x10^3/uL (2.2-4.8); NEUTROPHILS % (AUTO) 85.1 % (42.0-75.0); PLATELET COUNT 138 X10^3/uL (150.0-450.0); RED CELL DISTRIBUTION WIDTH 19.9 % (11.6-16.5); WHITE BLOOD COUNT 8.6 X10^3/uL (3.6-10.0)
[2023-12-02 05:42] LABS: ALBUMIN 1.9 g/dL (3.4-5.0); CALCIUM 8.2 mg/dL (8.5-10.1); CARBON DIOXIDE 29.9 mmol/L (21-32); COR CA(FOR HYPOALB) 9.9 mg/dL (8.5-10.1); CREATININE 1.96 mg/dL (0.55-1.02); MAGNESIUM 1.8 mg/dL (2.0-2.9); TOTAL PROTEIN 6.4 g/dL (6.4-8.2)
[2023-12-02 06:12] LABS: ANISOCYTOSIS SLIGHT; HYPOCHROMASIA SLIGHT; PLATELET MORPHOLOGY COMMENT NORMAL (NORMAL); SCHISTOCYTES PRESENT
[2023-12-02 06:24] LABS: POTASSIUM 2.6 mmol/L (3.5-5.1)
[2023-12-02] MEDS ORDERED: CONSULT PHARMACY - POTASSIUM & MAGNESIUM XX SCH (07:00)
[2023-12-02] MEDS: K-DUR TAB 20 MEQ PO SCH ×3 (08:45→20:15)
[2023-12-02] MEDS: FARXIGA PO SCH (08:45)
[2023-12-02] MEDS: MAG-OX TAB PO SCH ×2 (08:45→20:14)
[2023-12-02] MEDS: FERROUS GLUCONATE PO SCH (08:46)
[2023-12-02] MEDS ORDERED: SYNTHROID 125 mcg TAB PO SCH (09:00)
--- NOTE | 2023-12-02 09:47 | PCM.PROG ---
Progress Note Progress Note for Day of Date of Exam: 12/02/23 Subjective Subjective: Patient seen at bedside, no acute events overnight. She is feeling better. She is currently admitted for CHF exacerbation and hypokalemia. She is on 2L NC, sats >95%. Her leg edema has improved. Denies chest pain or SOB. Patient was recently started on bumex as per nephro. She sees cardio in [place]. Labs reviewed: -Hgb 9.7 K:2.6 BUN/Cr:42/1.96 Mag 1.8 -CXR: stable cardiomegaly -CTAP: small to moderate ascites -CT-brain: no acute process -ECHO 05/02/2323 Grade 3 DDD, EF57%. Plan: will get records from [place], wean O2 as tolerated. Continue diuresis, patient is getting home dose Bumex. Monitor I&Os, daily weights. Replace K as per protocol. Resume home KCl. Will repeat K level this afternoon. Replace mag as per protocol. PT/OT as tolerated. Encouraged ambulation as tolerated. Continue home medications. Monitor AM labs/imaging. Time spent for clinical assessment, reviewing labs/imaging, physical exam, decision making and documentation greater than 45 mins. Past Medical Family Social History Allergies: Allergies Sulfa (Sulfonamide Antibiotics) [SULFA] Allergy (Verified 11/30/23 17:00) torsemide [From Demadex] Allergy (Verified 11/30/23 17:00) Vital Signs and I&O's Vital Signs: Vital Signs Temperature 98.4 F Temperature 98.9 F Pulse Rate 80 Pulse Rate 83 Pulse Rate 73 Pulse Rate 71 Respiratory Rate 21 Respiratory Rate 22 Respiratory Rate 23 Respiratory Rate 20 Respiratory Rate 16 Blood Pressure 111/56 Blood Pressure 98/66 Blood Pressure 118/67 Blood Pressure 100/52 O2 Sat by Pulse Oximetry 99 O2 Sat by Pulse Oximetry 97 O2 Sat by Pulse Oximetry 95 O2 Sat by Pulse Oximetry 100 Intake and Output: Intake & Output 11/29/23 11/30/23 12/01/23 12/02/23 23:59 23:59 23:59 23:59 Intake Total 840 / 840 Output Total 1800 / 1800 1750 / 1750 700 / 700 Balance -1790 / -1790 -910 / -910 -690 / -690 Physical Exam Oriented: Not Oriented Eyes: Normal Ear: Normal Nose: Normal Throat: Normal Cardiovascular: Normal and Edema (LE improved) Auscultation: Bowel Sounds: Normal Palpation: Normal Tenderness: Normal Skin: Normal Musculoskeletal: Normal Psychiatric: Normal Mood Description: Calm Affect: Normal Speech Pattern: Clear and Appropriate Laboratory and Diagnostics 12/02/23 04:14 12/02/23 04:14 Labs: Laboratory WBC 8.6 X10^3/uL (3.6-10.0) 12/02/23 04:14 RBC 3.70 X10^6/uL (3.5-5.4) 12/02/23 04:14 Hgb 9.7 g/dL (12.0-16.0) L 12/02/23 04:14 Hct 29.9 % (36.0-47.0) L 12/02/23 04:14 MCV 80.7 fL (80.0-100.0) 12/02/23 04:14 MCH 26.2 pg (27.0-34.0) L 12/02/23 04:14 MCHC 32.5 g/dL (33.0-35.0) L 12/02/23 04:14 RDW 19.9 % (11.6-16.5) H 12/02/23 04:14 Plt Count 138 X10^3/uL (150.0-450.0) L 12/02/23 04:14 Plt Count Comment Decreased (ADEQUATE) A 12/02/23 04:14 MPV 8.6 fL (7.4-11.0) 12/02/23 04:14 Neut % (Auto) 85.1 % (42.0-75.0) H 12/02/23 04:14 Lymph % (Auto) 4.8 % (21.0-51.0) L 12/02/23 04:14 [place] % (Auto) 8.7 % (0.0-13.0) 12/02/23 04:14 Eos % (Auto) 1.0 % (0.9-2.9) 12/02/23 04:14 Baso % (Auto) 0.4 % (0.2-1.0) 12/02/23 04:14 Neut # (Auto) 7.3 x10^3/uL (2.2-4.8) H 12/02/23 04:14 Lymph # (Auto) 0.4 X10^3/uL (1.3-2.9) L 12/02/23 04:14 [place] # (Auto) 0.7 x10^3/uL (0.3-0.8) 12/02/23 04:14 Eos # (Auto) 0.1 x10^3/uL (0.0-0.2) 12/02/23 04:14 Baso # (Auto) 0.0 X10^3/uL (0.0-0.1) 12/02/23 04:14 Absolute Nucleated RBC 0.0 /100WBC 12/02/23 04:14 Plt Morphology Comment Normal (NORMAL) 12/02/23 04:14 RBC Morphology Abnormal (NORMAL) A 12/02/23 04:14 Hypochromasia Slight A 12/02/23 04:14 Anisocytosis Slight A 12/02/23 04:14 Schistocytes Present 12/02/23 04:14 PT 22.2 SECONDS (11.8-14.3) 12/01/23 05:10 INR Target Range - 12/01/23 05:10 INR 1.99 (0.8-1.3) H 12/01/23 05:10 APTT 43.4 SECONDS (22.9-36.5) H 12/01/23 05:10 PTT Comment - 12/01/23 05:10 D-Dimer 6.17 ug/ml (0.0-0.57) H 11/30/23 11:27 Sodium 127 mmol/L (136-145) L 12/02/23 04:14 Corrected Sodium 128 mmol/L (136-145) L 12/02/23 04:14 Potassium 2.6 mmol/L (3.5-5.1) L* 12/02/23 04:14 Chloride 89 mmol/L (98-107) L 12/02/23 04:14 Carbon Dioxide 29.9 mmol/L (21-32) 12/02/23 04:14 BUN 42 mg/dL (7-18) H 12/02/23 04:14 Creatinine 1.96 mg/dL (0.55-1.02) H 12/02/23 04:14 Est GFR (MDRD) Af Amer 32 (>60) L 12/02/23 04:14 Est GFR (MDRD) Non-Af 26 (>60) L 12/02/23 04:14 Glucose 146 mg/dL (65-99) H 12/02/23 04:14 POC Glucose (mg/dL) 150 mg/dL (65-99) H 12/02/23 06:00 Calcium 8.2 mg/dL (8.5-10.1) L 12/02/23 04:14 Corrected Calcium 9.9 mg/dL (8.5-10.1) 12/02/23 04:14 Magnesium 1.8 mg/dL (2.0-2.9) L 12/02/23 04:14 Total Bilirubin 1.50 mg/dL (0.2-1.0) H 12/02/23 04:14 AST 42 Units/L (15-37) H 12/02/23 04:14 ALT 21 Units/L (12-78) 12/02/23 04:14 Alkaline Phosphatase 93 Units/L (46-116) 12/02/23 04:14 Creatine Kinase 295 Units/L (26-192) H 11/30/23 11:27 Troponin I High Sens 45.7 ng/L (4.0-60.0) 11/30/23 13:05 B-Natriuretic Peptide 1960 pg/mL (0-79) H 11/30/23 19:10 Total Protein 6.4 g/dL (6.4-8.2) 12/02/23 04:14 Albumin 1.9 g/dL (3.4-5.0) L 12/02/23 04:14 Globulin 4.5 g/dL (2.5-4.5) 12/02/23 04:14 Albumin/Globulin Ratio 0.4 Ratio (1.1-2.1) L 12/02/23 04:14 TSH 3rd Generation 1.149 uIU/mL (0.358-3.74) 12/01/23 05:15 Specimen Type Catherized urine 11/30/23 12:32 Urine Color Pale yellow (YELLOW) 11/30/23 12:32 Urine Appearance Clear (CLEAR) 11/30/23 12:32 Urine pH 6.0 (5.0 - 8.0) 11/30/23 12:32 Ur Specific [place] 1.015 (1.000-1.030) 11/30/23 12:32 Urine Protein Negative (NEGATIVE) 11/30/23 12:32 Urine Glucose (UA) 4+ (NEGATIVE) 11/30/23 12:32 Urine Ketones Negative (NEGATIVE) 11/30/23 12:32 Urine Blood 1+ (NEGATIVE) 11/30/23 12:32 Urine Nitrite Negative (NEGATIVE) 11/30/23 12:32 Urine Bilirubin Negative (NEGATIVE) 11/30/23 12:32 Urine Urobilinogen Normal (NORMAL) 11/30/23 12:32 Ur Leukocyte Esterase Negative (NEGATIVE) 11/30/23 12:32 Urine RBC 0-2 /HPF (0-3) 11/30/23 12:32 Urine WBC 0-2 /HPF (0-5) 11/30/23 12:32 Ur Squamous Epith Cells Negative /HPF (NEGATIVE) 11/30/23 12:32 Urine Bacteria 1+ /HPF (NEGATIVE) 11/30/23 12:32 Ur Culture Indicated? No/not indicated 11/30/23 12:32 Plan (1) CHF exacerbation: Status: Acute Qualifiers: Heart failure type: unspecified Qualified Code(s): I50.9 - Heart failure, unspecified (2) Hypokalemia: Status: Acute Plan: Replace with potassium replacement protocol. (3) Acute kidney injury superimposed on chronic kidney disease: Status: Acute (4) Hypomagnesemia: Status: Acute Plan: Replace with magnesium oxide. (5) Altered mental state: Status: Deleted Qualifiers: Altered mental status type: transient alteration of awareness Qualified Code(s): R40.4 - Transient alteration of awareness (6) Hypothyroidism: Status: Chronic Qualifiers: Hypothyroidism type: acquired Qualified Code(s): E03.9 - Hypothyroidism, unspecified Plan: Resume levothyroxine. (7) Insulin dependent type 2 diabetes mellitus: Status: Acute Plan: Cover with slight scale regular insulin per protocol. (8) Anemia: Status: Acute Qualifiers: Anemia type: unspecified type Qualified Code(s): D64.9 - Anemia, unspecified (9) Atrial fibrillation: Status: Chronic Qualifiers: Atrial fibrillation type: paroxysmal Qualified Code(s): I48.0 - Paroxysmal atrial fibrillation
[2023-12-02] MEDS: ZOFRAN INJ 4 MG VIAL IVP PRN (15:30)
[2023-12-02] MEDS: LANTUS SC SCH (16:09)
[2023-12-03] MEDS: K-DUR TAB 20 MEQ PO ONE (00:02)
[2023-12-03 05:56] LABS: BASOPHILS % (AUTO) 0.2 % (0.2-1.0); EOSINOPHILS # (AUTO) 0.2 x10^3/uL (0.0-0.2); EOSINOPHILS % (AUTO) 2.1 % (0.9-2.9); HEMATOCRIT 29.5 % (36.0-47.0); HEMOGLOBIN 9.7 g/dL (12.0-16.0); LYMPHOCYTES # (AUTO) 0.7 X10^3/uL (1.3-2.9); LYMPHOCYTES % (AUTO) 9.1 % (21.0-51.0); MEAN CORPUSCULAR HEMOGLOBIN 26.4 pg (27.0-34.0); MEAN CORPUSCULAR VOLUME 79.9 fL (80.0-100.0); MEAN PLATELET VOLUME 8.6 fL (7.4-11.0); MONOCYTES # (AUTO) 0.9 x10^3/uL (0.3-0.8); NEUTROPHILS # (AUTO) 6.2 x10^3/uL (2.2-4.8); NEUTROPHILS % (AUTO) 77.6 % (42.0-75.0); PLATELET COUNT 126 X10^3/uL (150.0-450.0); RED BLOOD COUNT 3.69 X10^6/uL (3.5-5.4); RED CELL DISTRIBUTION WIDTH 19.5 % (11.6-16.5); WHITE BLOOD COUNT 7.9 X10^3/uL (3.6-10.0)
[2023-12-03 06:13] LABS: ALBUMIN 1.9 g/dL (3.4-5.0); CALCIUM 8.2 mg/dL (8.5-10.1); CARBON DIOXIDE 31.1 mmol/L (21-32); COR CA(FOR HYPOALB) 9.9 mg/dL (8.5-10.1); CREATININE 1.95 mg/dL (0.55-1.02); MAGNESIUM 1.8 mg/dL (2.0-2.9); POTASSIUM 3.3 mmol/L (3.5-5.1); TOTAL PROTEIN 6.5 g/dL (6.4-8.2)
[2023-12-03 06:30] LABS: ANISOCYTOSIS SLIGHT; HYPOCHROMASIA SLIGHT; MICROCYTOSIS SLIGHT; PLATELET MORPHOLOGY COMMENT NORMAL (NORMAL)
[2023-12-03] MEDS ORDERED: CONSULT PHARMACY - POTASSIUM & MAGNESIUM XX SCH (07:00)
[2023-12-03] MEDS ORDERED: K-DUR TAB 20 MEQ PO SCH (10:00)
[2023-12-03 10:27] VITALS: BP 113/57; PULSE 78; RESP 26; TEMP 97.7; O2SAT 100
[2023-12-03] MEDS: MAG-OX TAB PO SCH (10:36)
--- NOTE | 2023-12-03 18:40 | W.DIS.FURT ---
Summary of Discharge Discharge Summary of Date Date of Exam: 12/03/23 Admission Date Date of Admission: 11/30/23 Admission Diagnosis Patient Problems (Updated 12/02/23 @ 09:46 by Georgette Pickett) Acute on chronic renal failure (Acute) N17.9, N18.9 Hypokalemia (Acute) E87.6 Hypomagnesemia (Acute) E83.42 Hospital Course: Ms Sharma is a 78y/o female with a PMH of CAD, CHF, HTN, HLD, anemia and diabetes presented due to AMS and worsening LE edema. In the ER, patient had low Na, K and Mag. Trop (-), BNP elevated. She also had CTAP which showed ascites. She was admitted for CHF exacerbation and electrolyte imbalance. CT-brain was negative for acute process. Patient's home dose of bumex was restarted. She was started on K and Mag potassium replacement. All her other home meds were restarted. Patient was feeling better, ambulating in the room. She was off O2. Her K and Mag levels improved. Family had requested patient to be transferred to [facility], paper-work was sent for transfer but it was declined. Patient has a f/u with Cardio and nephro in the upcoming weeks. She was stable for discharge. She will f/u with PCP in 2-3 days for repeat labs. Vital Signs: Vital Signs (72 hours) 11/30/23 10:16 11/30/23 10:11 11/30/23 10:15 Temperature 97.9 F Pulse Rate 90 90 89 Respiratory Rate 20 18 27 H Blood Pressure 143/62 O2 Sat by Pulse Oximetry 99 93 L 98 Oxygen Delivery Method Room Air Oxygen Flow Rate FIO2% 11/30/23 10:30 11/30/23 10:30 11/30/23 10:45 Temperature Pulse Rate 92 H 87 Respiratory Rate 18 23 Blood Pressure 121/57 O2 Sat by Pulse Oximetry 99 Oxygen Delivery Method Oxygen Flow Rate FIO2% 11/30/23 11:00 11/30/23 11:00 11/30/23 11:00 Temperature Pulse Rate 84 Respiratory Rate 17 Blood Pressure 141/64 141/64 O2 Sat by Pulse Oximetry 100 Oxygen Delivery Method Oxygen Flow Rate FIO2% 11/30/23 11:15 11/30/23 11:39 11/30/23 11:39 Temperature Pulse Rate 91 H 96 H Respiratory Rate 37 H Blood Pressure 132/60 O2 Sat by Pulse Oximetry 97 100 Oxygen Delivery Method Oxygen Flow Rate FIO2% 11/30/23 11:54 11/30/23 12:00 11/30/23 12:15 Temperature Pulse Rate 88 96 H 94 H Respiratory Rate 24 19 20 Blood Pressure O2 Sat by Pulse Oximetry 99 99 100 Oxygen Delivery Method Oxygen Flow Rate FIO2% 11/30/23 12:30 11/30/23 12:31 11/30/23 12:31 Temperature Pulse Rate 94 H 95 H Respiratory Rate 28 H 34 H Blood Pressure 118/81 O2 Sat by Pulse Oximetry 97 Oxygen Delivery Method Oxygen Flow Rate FIO2% 11/30/23 12:45 11/30/23 13:00 11/30/23 13:00 Temperature Pulse Rate 89 92 H Respiratory Rate 21 20 Blood Pressure 136/66 O2 Sat by Pulse Oximetry 100 100 Oxygen Delivery Method Oxygen Flow Rate FIO2% 11/30/23 13:00 11/30/23 13:15 11/30/23 13:15 Temperature Pulse Rate 88 Respiratory Rate 18 Blood Pressure 136/66 123/59 O2 Sat by Pulse Oximetry 98 Oxygen Delivery Method Oxygen Flow Rate FIO2% 11/30/23 13:30 11/30/23 13:30 11/30/23 13:45 Temperature Pulse Rate 87 Respiratory Rate 22 Blood Pressure 108/51 108/52 O2 Sat by Pulse Oximetry 100 Oxygen Delivery Method Oxygen Flow Rate FIO2% 11/30/23 13:45 11/30/23 14:00 11/30/23 14:00 Temperature Pulse Rate 86 88 Respiratory Rate 28 H 26 H Blood Pressure 110/55 O2 Sat by Pulse Oximetry 99 100 Oxygen Delivery Method Oxygen Flow Rate FIO2% 11/30/23 14:15 11/30/23 14:15 11/30/23 14:30 Temperature Pulse Rate 90 Respiratory Rate 21 Blood Pressure 97/54 101/56 O2 Sat by Pulse Oximetry 100 Oxygen Delivery Method Oxygen Flow Rate FIO2% 11/30/23 14:30 11/30/23 14:45 11/30/23 14:45 Temperature Pulse Rate 89 86 Respiratory Rate 22 29 H Blood Pressure 115/56 O2 Sat by Pulse Oximetry 100 99 Oxygen Delivery Method Oxygen Flow Rate FIO2% 11/30/23 15:00 11/30/23 15:00 11/30/23 15:15 Temperature Pulse Rate 84 84 Respiratory Rate 24 15 Blood Pressure 118/58 O2 Sat by Pulse Oximetry 99 100 Oxygen Delivery Method Oxygen Flow Rate FIO2% 11/30/23 15:15 11/30/23 15:30 11/30/23 15:30 Temperature Pulse Rate 84 Respiratory Rate 16 Blood Pressure 113/55 108/54 O2 Sat by Pulse Oximetry 100 Oxygen Delivery Method Oxygen Flow Rate FIO2% 11/30/23 16:16 11/30/23 15:47 11/30/23 15:47 Temperature Pulse Rate 85 Respiratory Rate 18 Blood Pressure 112/55 O2 Sat by Pulse Oximetry 100 Oxygen Delivery Method Nasal Cannula Oxygen Flow Rate 2 FIO2% 11/30/23 16:00 11/30/23 16:02 11/30/23 16:02 Temperature Pulse Rate 83 Respiratory Rate 21 Blood Pressure 106/55 106/55 O2 Sat by Pulse Oximetry Oxygen Delivery Method Oxygen Flow Rate FIO2% 11/30/23 16:02 11/30/23 16:15 11/30/23 19:00 Temperature Pulse Rate 82 80 Respiratory Rate 20 20 Blood Pressure O2 Sat by Pulse Oximetry 100 100 Oxygen Delivery Method Nasal Cannula Oxygen Flow Rate 2 FIO2% 11/30/23 20:00 11/30/23 20:00 12/01/23 00:00 Temperature 99.8 F H 99.2 F Pulse Rate 81 76 Respiratory Rate 24 21 Blood Pressure 107/51 106/58 O2 Sat by Pulse Oximetry 100 99 Oxygen Delivery Method Nasal Cannula Oxygen Flow Rate 2 FIO2% 11/30/23 21:00 11/30/23 22:00 12/01/23 01:00 Temperature Pulse Rate 79 82 78 Respiratory Rate 17 21 21 Blood Pressure 114/54 115/58 108/54 O2 Sat by Pulse Oximetry 99 100 99 Oxygen Delivery Method Oxygen Flow Rate FIO2% 12/01/23 03:37 12/01/23 02:00 12/01/23 03:00 Temperature Pulse Rate 76 77 Respiratory Rate 21 19 21 Blood Pressure 110/55 108/56 O2 Sat by Pulse Oximetry 99 99 Oxygen Delivery Method Oxygen Flow Rate FIO2% 12/01/23 04:00 12/01/23 05:00 12/01/23 04:37 Temperature 99.1 F Pulse Rate 66 73 Respiratory Rate 19 16 16 Blood Pressure 113/55 105/52 O2 Sat by Pulse Oximetry 98 95 Oxygen Delivery Method Oxygen Flow Rate FIO2% 12/01/23 06:00 12/01/23 07:00 12/01/23 07:00 Temperature Pulse Rate 73 64 Respiratory Rate 16 16 Blood Pressure 106/51 97/55 O2 Sat by Pulse Oximetry 99 99 Oxygen Delivery Method Oxygen Flow Rate FIO2% 12/01/23 07:15 12/01/23 07:30 12/01/23 07:45 Temperature Pulse Rate 58 L 63 69 Respiratory Rate 16 19 23 Blood Pressure O2 Sat by Pulse Oximetry 99 100 98 Oxygen Delivery Method Oxygen Flow Rate FIO2% 12/01/23 08:00 12/01/23 08:00 12/01/23 08:35 Temperature 97.8 F Pulse Rate 68 Respiratory Rate 22 Blood Pressure 113/56 O2 Sat by Pulse Oximetry 100 Oxygen Delivery Method Nasal Cannula Oxygen Flow Rate 2 FIO2% 12/01/23 08:15 12/01/23 08:30 12/01/23 08:45 Temperature Pulse Rate 67 68 64 Respiratory Rate 24 25 H 22 Blood Pressure O2 Sat by Pulse Oximetry 100 100 100 Oxygen Delivery Method Oxygen Flow Rate FIO2% 12/01/23 09:00 12/01/23 09:00 12/01/23 09:15 Temperature Pulse Rate 67 69 Respiratory Rate 21 21 Blood Pressure 117/55 O2 Sat by Pulse Oximetry 100 100 Oxygen Delivery Method Oxygen Flow Rate FIO2% 12/01/23 09:31 12/01/23 09:45 12/01/23 10:13 Temperature Pulse Rate 62 70 77 Respiratory Rate 23 24 Blood Pressure O2 Sat by Pulse Oximetry 100 100 Oxygen Delivery Method Oxygen Flow Rate FIO2% 12/01/23 10:15 12/01/23 10:30 12/01/23 10:45 Temperature Pulse Rate 74 72 70 Respiratory Rate 14 23 24 Blood Pressure O2 Sat by Pulse Oximetry 100 100 100 Oxygen Delivery Method Oxygen Flow Rate FIO2% 12/01/23 11:00 12/01/23 11:15 12/01/23 11:30 Temperature Pulse Rate 65 71 70 Respiratory Rate 16 19 19 Blood Pressure O2 Sat by Pulse Oximetry 100 100 100 Oxygen Delivery Method Oxygen Flow Rate FIO2% 12/01/23 11:45 12/01/23 12:00 12/01/23 12:14 Temperature 97.6 F Pulse Rate 72 75 74 Respiratory Rate 18 20 20 Blood Pressure 120/56 O2 Sat by Pulse Oximetry 100 100 100 Oxygen Delivery Method Oxygen Flow Rate FIO2% 12/01/23 12:14 12/01/23 12:15 12/01/23 12:30 Temperature Pulse Rate 74 70 Respiratory Rate 20 19 Blood Pressure 120/58 O2 Sat by Pulse Oximetry 100 100 Oxygen Delivery Method Oxygen Flow Rate FIO2% 12/01/23 12:45 12/01/23 13:00 12/01/23 13:15 Temperature Pulse Rate 84 81 68 Respiratory Rate 19 22 21 Blood Pressure O2 Sat by Pulse Oximetry 98 96 100 Oxygen Delivery Method Oxygen Flow Rate FIO2% 12/01/23 13:30 12/01/23 13:45 12/01/23 14:00 Temperature Pulse Rate 67 70 69 Respiratory Rate 22 23 22 Blood Pressure O2 Sat by Pulse Oximetry 100 97 97 Oxygen Delivery Method Oxygen Flow Rate FIO2% 12/01/23 14:15 12/01/23 14:30 12/01/23 14:45 Temperature Pulse Rate 72 74 81 Respiratory Rate 22 22 21 Blood Pressure O2 Sat by Pulse Oximetry 98 99 99 Oxygen Delivery Method Oxygen Flow Rate FIO2% 12/01/23 15:00 12/01/23 15:15 12/01/23 15:30 Temperature Pulse Rate 78 79 78 Respiratory Rate 22 22 22 Blood Pressure O2 Sat by Pulse Oximetry 100 99 99 Oxygen Delivery Method Oxygen Flow Rate FIO2% 12/01/23 15:45 12/01/23 16:00 12/01/23 16:15 Temperature 98.2 F Pulse Rate 81 81 Respiratory Rate 23 22 Blood Pressure 115/59 O2 Sat by Pulse Oximetry 100 98 Oxygen Delivery Method Oxygen Flow Rate FIO2% 12/02/23 00:56 12/01/23 19:00 12/01/23 20:00 Temperature 98.9 F Pulse Rate 81 Respiratory Rate 20 20 Blood Pressure 131/60 O2 Sat by Pulse Oximetry 100 Oxygen Delivery Method Nasal Cannula Nasal Cannula Oxygen Flow Rate 2 2 FIO2% 12/01/23 20:51 12/02/23 00:00 12/02/23 04:00 Temperature 99.1 F 98.9 F Pulse Rate 83 71 Respiratory Rate 20 20 Blood Pressure 121/83 100/52 O2 Sat by Pulse Oximetry 99 100 Oxygen Delivery Method Nasal Cannula Nasal Cannula Nasal Cannula Oxygen Flow Rate 2 2 2 FIO2% 28 12/02/23 01:56 12/02/23 07:01 12/02/23 07:01 Temperature Pulse Rate 73 Respiratory Rate 16 23 Blood Pressure 118/67 O2 Sat by Pulse Oximetry 95 Oxygen Delivery Method Oxygen Flow Rate FIO2% 12/02/23 08:00 12/02/23 08:01 12/02/23 08:15 Temperature 98.4 F Pulse Rate 83 Respiratory Rate 22 Blood Pressure 98/66 O2 Sat by Pulse Oximetry 97 Oxygen Delivery Method Nasal Cannula Oxygen Flow Rate 2 FIO2% 12/02/23 09:00 12/02/23 09:00 12/02/23 08:40 Temperature Pulse Rate 80 Respiratory Rate 21 Blood Pressure 111/56 O2 Sat by Pulse Oximetry 99 Oxygen Delivery Method Nasal Cannula Oxygen Flow Rate 2 FIO2% 12/02/23 10:00 12/02/23 10:00 12/02/23 09:25 Temperature Pulse Rate 77 Respiratory Rate 24 Blood Pressure 123/57 O2 Sat by Pulse Oximetry 95 Oxygen Delivery Method Room Air Oxygen Flow Rate FIO2% 12/02/23 11:00 12/02/23 11:16 12/02/23 11:16 Temperature Pulse Rate 74 73 Respiratory Rate 21 23 Blood Pressure 115/56 O2 Sat by Pulse Oximetry 100 99 Oxygen Delivery Method Oxygen Flow Rate FIO2% 12/02/23 12:00 12/02/23 13:00 12/02/23 13:01 Temperature 98.2 F Pulse Rate 70 74 Respiratory Rate 18 22 Blood Pressure 123/60 129/60 O2 Sat by Pulse Oximetry 97 100 Oxygen Delivery Method Oxygen Flow Rate FIO2% 12/02/23 14:00 12/02/23 14:00 12/02/23 15:01 Temperature Pulse Rate 74 79 Respiratory Rate 21 22 Blood Pressure 123/60 O2 Sat by Pulse Oximetry 96 96 Oxygen Delivery Method Oxygen Flow Rate FIO2% 12/02/23 15:01 12/02/23 16:00 12/02/23 16:01 Temperature 97.6 F Pulse Rate 80 Respiratory Rate 20 Blood Pressure 126/62 136/61 O2 Sat by Pulse Oximetry 93 L Oxygen Delivery Method Oxygen Flow Rate FIO2% 12/02/23 17:00 12/02/23 17:00 12/02/23 18:00 Temperature Pulse Rate 81 87 Respiratory Rate 20 22 Blood Pressure 120/56 O2 Sat by Pulse Oximetry 95 98 Oxygen Delivery Method Oxygen Flow Rate FIO2% 12/02/23 18:01 12/02/23 20:17 12/02/23 19:00 Temperature Pulse Rate Respiratory Rate 20 Blood Pressure 128/58 O2 Sat by Pulse Oximetry Oxygen Delivery Method Nasal Cannula Oxygen Flow Rate 2 FIO2% 12/02/23 21:17 12/02/23 19:00 12/02/23 20:00 Temperature 98.7 F Pulse Rate 80 84 Respiratory Rate 20 20 15 Blood Pressure 120/57 115/57 O2 Sat by Pulse Oximetry 95 96 Oxygen Delivery Method Nasal Cannula Nasal Cannula Oxygen Flow Rate 2 2 FIO2% 12/02/23 21:00 12/02/23 22:00 12/02/23 23:00 Temperature Pulse Rate 80 77 77 Respiratory Rate 22 21 19 Blood Pressure 112/80 118/58 116/58 O2 Sat by Pulse Oximetry 98 99 97 Oxygen Delivery Method Nasal Cannula Nasal Cannula Nasal Cannula Oxygen Flow Rate 2 2 2 FIO2% 12/03/23 00:00 12/03/23 01:00 12/03/23 02:00 Temperature 99.4 F Pulse Rate 78 74 69 Respiratory Rate 20 19 16 Blood Pressure 120/56 109/51 105/53 O2 Sat by Pulse Oximetry 97 96 98 Oxygen Delivery Method Nasal Cannula Nasal Cannula Nasal Cannula Oxygen Flow Rate 2 2 2 FIO2% 12/03/23 03:00 12/03/23 04:00 12/03/23 05:00 Temperature 98.6 F Pulse Rate 68 65 66 Respiratory Rate 19 20 13 Blood Pressure 105/55 94/50 98/60 O2 Sat by Pulse Oximetry 100 98 92 L Oxygen Delivery Method Nasal Cannula Nasal Cannula Nasal Cannula Oxygen Flow Rate 2 2 FIO2% 12/03/23 06:00 12/03/23 07:00 12/03/23 09:10 Temperature Pulse Rate 66 66 Respiratory Rate 24 15 Blood Pressure 118/57 112/56 O2 Sat by Pulse Oximetry 98 97 Oxygen Delivery Method Nasal Cannula Room Air Oxygen Flow Rate 2 FIO2% Labs: Laboratory Last Values WBC 7.9 X10^3/uL (3.6-10.0) 12/03/23 04:45 RBC 3.69 X10^6/uL (3.5-5.4) 12/03/23 04:45 Hgb 9.7 g/dL (12.0-16.0) L 12/03/23 04:45 Hct 29.5 % (36.0-47.0) L 12/03/23 04:45 MCV 79.9 fL (80.0-100.0) L 12/03/23 04:45 MCH 26.4 pg (27.0-34.0) L 12/03/23 04:45 MCHC 33.0 g/dL (33.0-35.0) 12/03/23 04:45 RDW 19.5 % (11.6-16.5) H 12/03/23 04:45 Plt Count 126 X10^3/uL (150.0-450.0) L 12/03/23 04:45 Plt Count Comment Decreased (ADEQUATE) A 12/03/23 04:45 MPV 8.6 fL (7.4-11.0) 12/03/23 04:45 Neut % (Auto) 77.6 % (42.0-75.0) H 12/03/23 04:45 Lymph % (Auto) 9.1 % (21.0-51.0) L 12/03/23 04:45 [place] % (Auto) 11.0 % (0.0-13.0) 12/03/23 04:45 Eos % (Auto) 2.1 % (0.9-2.9) 12/03/23 04:45 Baso % (Auto) 0.2 % (0.2-1.0) 12/03/23 04:45 Neut # (Auto) 6.2 x10^3/uL (2.2-4.8) H 12/03/23 04:45 Lymph # (Auto) 0.7 X10^3/uL (1.3-2.9) L 12/03/23 04:45 [place] # (Auto) 0.9 x10^3/uL (0.3-0.8) H 12/03/23 04:45 Eos # (Auto) 0.2 x10^3/uL (0.0-0.2) 12/03/23 04:45 Baso # (Auto) 0.0 X10^3/uL (0.0-0.1) 12/03/23 04:45 Absolute Nucleated RBC 0.1 /100WBC 12/03/23 04:45 Plt Morphology Comment Normal (NORMAL) 12/03/23 04:45 RBC Morphology Abnormal (NORMAL) A 12/03/23 04:45 Hypochromasia Slight A 12/03/23 04:45 Anisocytosis Slight A 12/03/23 04:45 Microcytosis Slight A 12/03/23 04:45 Schistocytes Present 12/02/23 04:14 PT 22.2 SECONDS (11.8-14.3) 12/01/23 05:10 INR Target Range - 12/01/23 05:10 INR 1.99 (0.8-1.3) H 12/01/23 05:10 APTT 43.4 SECONDS (22.9-36.5) H 12/01/23 05:10 PTT Comment - 12/01/23 05:10 D-Dimer 6.17 ug/ml (0.0-0.57) H 11/30/23 11:27 Sodium 130 mmol/L (136-145) L 12/03/23 04:45 Corrected Sodium 131 mmol/L (136-145) L 12/03/23 04:45 Potassium 3.3 mmol/L (3.5-5.1) L 12/03/23 04:45 Chloride 92 mmol/L (98-107) L 12/03/23 04:45 Carbon Dioxide 31.1 mmol/L (21-32) 12/03/23 04:45 BUN 41 mg/dL (7-18) H 12/03/23 04:45 Creatinine 1.95 mg/dL (0.55-1.02) H 12/03/23 04:45 Est GFR (MDRD) Af Amer 32 (>60) L 12/03/23 04:45 Est GFR (MDRD) Non-Af 26 (>60) L 12/03/23 04:45 Glucose 140 mg/dL (65-99) H 12/03/23 04:45 POC Glucose (mg/dL) 208 mg/dL (65-99) H 12/03/23 09:43 Calcium 8.2 mg/dL (8.5-10.1) L 12/03/23 04:45 Corrected Calcium 9.9 mg/dL (8.5-10.1) 12/03/23 04:45 Magnesium 1.8 mg/dL (2.0-2.9) L 12/03/23 04:45 Total Bilirubin 1.30 mg/dL (0.2-1.0) H 12/03/23 04:45 AST 41 Units/L (15-37) H 12/03/23 04:45 ALT 18 Units/L (12-78) 12/03/23 04:45 Alkaline Phosphatase 99 Units/L (46-116) 12/03/23 04:45 Creatine Kinase 295 Units/L (26-192) H 11/30/23 11:27 Troponin I High Sens 45.7 ng/L (4.0-60.0) 11/30/23 13:05 B-Natriuretic Peptide 1960 pg/mL (0-79) H 11/30/23 19:10 Total Protein 6.5 g/dL (6.4-8.2) 12/03/23 04:45 Albumin 1.9 g/dL (3.4-5.0) L 12/03/23 04:45 Globulin 4.6 g/dL (2.5-4.5) H 12/03/23 04:45 Albumin/Globulin Ratio 0.4 Ratio (1.1-2.1) L 12/03/23 04:45 TSH 3rd Generation 1.149 uIU/mL (0.358-3.74) 12/01/23 05:15 Specimen Type Catherized urine 11/30/23 12:32 Urine Color Pale yellow (YELLOW) 11/30/23 12:32 Urine Appearance Clear (CLEAR) 11/30/23 12:32 Urine pH 6.0 (5.0 - 8.0) 11/30/23 12:32 Ur Specific [place] 1.015 (1.000-1.030) 11/30/23 12:32 Urine Protein Negative (NEGATIVE) 11/30/23 12:32 Urine Glucose (UA) 4+ (NEGATIVE) 11/30/23 12:32 Urine Ketones Negative (NEGATIVE) 11/30/23 12:32 Urine Blood 1+ (NEGATIVE) 11/30/23 12:32 Urine Nitrite Negative (NEGATIVE) 11/30/23 12:32 Urine Bilirubin Negative (NEGATIVE) 11/30/23 12:32 Urine Urobilinogen Normal (NORMAL) 11/30/23 12:32 Ur Leukocyte Esterase Negative (NEGATIVE) 11/30/23 12:32 Urine RBC 0-2 /HPF (0-3) 11/30/23 12:32 Urine WBC 0-2 /HPF (0-5) 11/30/23 12:32 Ur Squamous Epith Cells Negative /HPF (NEGATIVE) 04/27/24 12:32 Urine Bacteria 1+ /HPF (NEGATIVE) 11/30/23 12:32 Ur Culture Indicated? 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) Congestive heart failure (Chronic) Left wrist pain (Acute) Hypokalemia (Acute) Acute on chronic renal failure (Acute) Hypokalemia (Acute) Hypomagnesemia (Acute) Pulmonary edema with congestive heart failure with reduced left ventricular function (Acute) Atrial fibrillation (Chronic) Hypothyroidism (Chronic) Diabetes mellitus (Chronic) History of anemia (Chronic) History of breast cancer (Chronic) Coronary artery disease (Chronic) Cardiomyopathy (Chronic) Cardiac arrhythmia (Chronic) Valvular heart disease (Chronic) Hyperlipidemia (Chronic) Hx of CABG (Chronic) Plan of Treatment: Continue with present treatment and follow up plan. Pt is to keep follow up appointment as instructed and take medications as ordered. Discharge Medications Discharge Medications: Sulfa (Sulfonamide Antibiotics) [SULFA] Allergy (Verified 11/30/23 17:00) torsemide [From Demadex] Allergy (Verified 11/30/23 17:00) CONTINUE taking the following medications apixaban 2.5 mg tablet (Eliquis) 2.5 mg PO BID 11/30/23 [History] aspirin 81 mg capsule,delayed release 81 mg PO DAILY 11/30/23 [History] bumetanide 2 mg tablet 2 mg PO BID 11/30/23 [History] ferrous sulfate 325 mg (65 mg iron) tablet (FeroSul) 325 mg PO QDAY 11/30/23 [H istory] insulin lispro 100 unit/mL subcutaneous solution (Humalog U-100 Insulin) 0 - 13 unit subcut TID 11/30/23 [History] levothyroxine 125 mcg tablet 125 mcg PO QDAY 11/30/23 [History] New Prescriptions magnesium oxide 400 mg (241.3 mg magnesium) tablet 400 mg PO BID 10 days #20 tabs 12/03/23 [Rx] Discharge Disposition Discharge Disposition: Home Discharge Condition: Stable Discharge Plan Discharge Plan Hospital Course: Ms Sharma is a 78y/o female with a PMH of CAD, CHF, HTN, HLD, anemia and diabetes presented due to AMS and worsening LE edema. In the ER, patient had low Na, K and Mag. Trop (-), BNP elevated. She also had CTAP which showed ascites. She was admitted for CHF exacerbation and electrolyte imbalance. CT-brain was negative for acute process. Patient's home dose of bumex was restarted. She was started on K and Mag potassium replacement. All her other home meds were restarted. Patient was feeling better, ambulating in the room. She was off O2. Her K and Mag levels improved. Family had requested patient to be transferred to [facility], paper-work was sent for transfer but it was declined. Patient has a f/u with Cardio and nephro in the upcoming weeks. She was stable for discharge. She will f/u with PCP in 2-3 days for repeat labs. Patient Disposition: 01 HOME, SELF-CARE Condition: Stable Health Concerns: Post Hospitalization: new medications and changes needed to prevent readmission or further decline. Pt educated and given instructions on all concerns. Care Plan Goals: Problem: Activity Intolerance Goal: Increased tolerance to activity Instructions: Follow provided instructions. Follow up with primary physician as directed. Contact primary care physician or report to the closest Emergency Room if condition worsens. Plan of Treatment: Continue with present treatment and follow up plan. Pt is to keep follow up appointment as instructed and take medications as ordered. Prescription drug monitoring program results: PDMP reviewed and no concerns identified Prescriptions: New magnesium oxide 400 mg (241.3 mg magnesium) Tablet 400 mg PO BID 10 Days Qty: 20 0RF Continued bumetanide 2 mg tablet 2 mg PO BID aspirin 81 mg Capsule,Delayed Release(Dr/Ec) 81 mg PO DAILY ferrous sulfate [FeroSul] 325 mg (65 mg iron) tablet 325 mg PO QDAY levothyroxine 125 mcg tablet 125 mcg PO QDAY insulin lispro [Humalog U-100 Insulin] 100 unit/mL solution 0 - 13 unit subcut TID Rx Instructions: sliding scale Eliquis 2.5 mg tablet 2.5 mg PO BID atorvastatin 40 mg tablet 40 mg PO QHS potassium chloride 20 mEq tablet,ER particles/crystals 20 meq PO BID levothyroxine 125 mcg tablet 125 mcg PO QDAY ranolazine 500 mg tablet extended release 12 hr 500 mg PO BID insulin glargine [Lantus U-100 Insulin] 100 unit/mL solution 20 unit SUBCUT QDAY dapagliflozin propanediol [Farxiga] 10 mg tablet 10 mg PO QDAY Follow ups/Referrals Follow ups/Referrals: BHAVIN NEGRON [Primary Care Provider] - 12/11/23 2:10 pm Instructions Instructions: Heart Failure, Self-Care, [id number], Hypomagnesemia, Hypokalemia, Chronic Kidney Disease, Adult, [id number] Activity Restrictions/Additional Instructions: Need to check BMP and mag at primary care visit Stand Alone Forms: Post Hospital Follow Up Care
== END 2023-12-03 11:25 | disposition home or self-care (01) | DRG 292 ==
LOC: ER 09:59 → ICU 15:02
PROVIDERS: ADMIT Internal Medicine; ATTEND Family Medicine